=== PATIENT | female | born 1945 | race Hispanic/Latino ===

== ENCOUNTER 2017-06-23 11:12 | Emergency (ER) | payer MEDICARE, OTHER ==
[2017-06-23 11:12] VITALS: BMI 26.1
[2017-06-23 11:15] VITALS: BP 162/97; PULSE 86; RESP 20; TEMP 97.7; O2SAT 99
--- NOTE | 2017-06-23 11:52 | ED PDOC ---
HPI: Head Injury <Radha Viera - Last Filed: 06/23/17 16:00> Chief Complaint (Provider): head injury/fall History Per: Patient History/Exam Limitations: no limitations Injury Occurred (Timing): Hours Ago: Description Of Injury (Context): Fell from wheelchair Pain Scale Rating Of: 2 Front/Back Head: 1 - Pain, swellling Additional Complaint(s): 71 y/o F with PMHx of MS, Breast Ca, HTN presents to ED after sustaining a fall from her WC to the ground while at home. Patient fell backwards and had sudden pain <Mika Rodriguez - Last Filed: 06/23/17 16:27> Time Seen by Provider: 06/23/17 11:18 Chief Complaint (Nursing): Back Pain Past Medical History Vital Signs: Last Vital Signs Temp 97.7 F 06/23/17 11:14 Pulse 86 06/23/17 11:14 Resp 20 06/23/17 11:14 BP 162/97 H 06/23/17 11:14 Pulse Ox 99 06/23/17 12:02 <Radha Viera - Last Filed: 06/23/17 16:00> Vital Signs: Last Vital Signs Temp 97.7 F 06/23/17 11:14 Pulse 86 06/23/17 11:14 Resp 20 06/23/17 11:14 BP 162/97 H 06/23/17 11:14 Pulse Ox 99 06/23/17 11:14 - Medical History PMH: Anxiety, Asthma, Hypothyroidism, Malignancy (breast/cervical, in remission for both), Multiple Sclerosis - Surgical History Other surgeries: Lumpectomy - Family History Family History: States: Unknown Family Hx - Living Arrangements Living Arrangements: With Family <Mika Rodriguez - Last Filed: 06/23/17 16:27> - Home Medications Home Medications: Ambulatory Orders Medication Instructions Recorded Albuterol 0.083% [Albuterol 0.083% 1 unit INH PRN PRN 05/10/16 Inhal Renata (2.5 mg/3 ml) UD] Albuterol HFA [Ventolin HFA 90 2 inh INH PRN PRN 05/10/16 mcg/actuation (8 g)] Calcium/Magnesium [Calcium with 1 tab PO DAILY 05/10/16 Magnesium Tab] Fexofenadine/Pseudoephedrine 1 tab PO PRN PRN 05/10/16 [Jennifer-D 12 Hour Tablet] Furosemide [Lasix] 40 mg PO PRN PRN 05/10/16 Home Med 1 cap PO Q12 05/10/16 Home Med 1 unit PO Q12 05/10/16 Letrozole [Femara] 2.5 mg PO HS 05/10/16 Naltrexone [Revia] 4.5 mg PO HS 05/10/16 Patient Own Control 1 tab PO DAILY 05/10/16 Home Med 1 cap PO DAILY 05/11/16 Home Med 1 cap PO Q12 05/11/16 Liothyronine Sodium [Cytomel] 5 mcg PO DAILY 05/11/16 Thyroid,Pork [[place] Thyroid] 15 mg PO ASDIR 05/11/16 Alprazolam [Xanax] 0.5 mg PO HS #0 tablet 05/14/16 Aspirin 325 mg PO PRN PRN #0 tab 05/14/16 Cefuroxime Axetil [Ceftin] 500 mg PO DAILY #7 tablet 05/22/16 Cephalexin [Keflex] 500 mg PO BID #14 capsule 07/10/16 Ciprofloxacin [Cipro] 500 mg PO BID #14 tab 07/10/16 Cephalexin [Keflex] 500 mg PO BID #14 capsule 08/24/16 Clotrimazole 1% Cream [Lotrimin 1%] 1 appl TP DAILY #1 tube 08/24/16 traMADol [Ultram] 50 mg PO TID PRN #15 tab 06/23/17 - Allergies Allergies/Adverse Reactions: Allergies Allergy/AdvReac Type Severity Reaction Status Date / Time shellfish derived Allergy ANAPHYLAXIS Verified 11/12/16 00:09 Review of Systems ROS Statement: Except As Marked, All Systems Reviewed And Found Negative Neurological: Positive for: Weakness (LE. Chronic), Headache (pressure like. Occipital area), Dizziness (Resolved) <Mika Rodriguez - Last Filed: 06/23/17 16:27> Physical Exam - Reviewed Nursing Documentation Reviewed: Yes Vital Signs Reviewed: Yes - Physical Exam Appears: Positive for: No Acute Distress Head Exam: Negative for: ATRAUMATIC (4 cm in diameter hematoma in the occipital area. No laceration), NORMAL INSPECTION Skin: Positive for: Normal Color, Warm Eye Exam: Positive for: EOMI, PERRL. Negative for: Nystagmus Neck: Negative for: Painless ROM Cardiovascular/Chest: Positive for: Regular Rate, Rhythm. Negative for: Gallop Respiratory: Positive for: Normal Breath Sounds. Negative for: Crackles, Wheezing Gastrointestinal/Abdominal: Positive for: Soft. Negative for: Tenderness, Distended Extremity: Negative for: Pedal Edema, Calf Tenderness Neurologic/Psych: Positive for: Alert, gas charger II-XII, Oriented, Motor/Sensory Deficits (B/L LE strenght 01/16. ). Negative for: Aphasia <Mika Rodriguez - Last Filed: 06/23/17 16:27> - ECG O2 Sat by Pulse Oximetry: 99 <Mika Rodriguez - Last Filed: 06/23/17 16:27> Medical Decision Making Medical Decision Making: MRI brain no acute findings <Radha Viera - Last Filed: 06/23/17 16:00> Medical Decision Makin71 y/o F with PMhx of MS, HTN nad Breast Ca presents s/p fall and head trauma Head hematoma s/p fall no acute changes from baseline noticed on PE rule out intracraneal bleeding MRI of the brain w/o contrast stat(CT not working) <Mika Rodriguez - Last Filed: 06/23/17 16:27> Disposition - Patient ED Disposition Is Patient to be Admitted: No Doctor Will See Patient In The: Office Counseled Patient/Family Regarding: Studies Performed, Diagnosis, Need For Followup - Disposition Disposition: Routine/Home Disposition Time: 16:00 <Radha Viera - Last Filed: 06/23/17 16:00> <Mika Rodriguez - Last Filed: 06/23/17 16:27> - Clinical Impression Clinical Impression: Head injury, Choroid cyst, Meningioma - Disposition Referrals: Braden Vanessa MD [Family Provider] - Noman Fisher MD [Staff Provider] - Condition: GOOD Additional Instructions: Follow up with your PCP in 2-3 days. Prescriptions: traMADol [Ultram] 50 mg PO TID PRN #15 tab PRN Reason: Pain, Severe (8-10) Instructions: Head Injury (ED) Forms: [facility] (Romansh)
--- NOTE | 2017-06-23 14:18 | MRI ---
PROCEDURE: MRI BRAIN WITHOUT CONTRAST HISTORY: Fall/Head trauma COMPARISON: Prior head CT 04/30/2012. TECHNIQUE: Multiplanar, multisequence MR images of the brain were obtained without intravenous contrast enhancement. FINDINGS: HEMORRHAGE: No intracranial hemorrhage identified. Small right parietal scalp hematoma is encountered, right greater than left. DWI: No evidence of an acute or early subacute infarction. BRAIN PARENCHYMA: Small 1 cm probable meningioma is stable at the left frontal dura unchanged in size compared to prior CT noted above. No additional significant extra-axial finding. Diffuse cerebral atrophy however is identified and slightly increased in the interval with chronic microangiopathy appearing mild. A large left choroid plexus cyst measures 2.9 x 3.4 cm in the left lateral ventricle atrium not dramatically changed in size in the interval. Midline brain and appears unremarkable. No significant mass effect. VENTRICLES: Unremarkable. No hydrocephalus. CRANIUM: No displaced fracture identified. ORBITS: Grossly unremarkable. PARANASAL SINUSES/MASTOIDS: Limited bilateral mastoiditis identified. VASCULAR SYSTEM: Skull base flow voids intact. OTHER FINDINGS: None. IMPRESSION: 1. No definite intracranial hemorrhage or mass effect. No displaced fracture is grossly evident. 2. Small scalp hematoma seen the right renal left parietal scalp. 3. Mild increased age-related neuro degenerative changes. 4. Small left frontal meningioma suggested. Contrast MRI can confirm.
== END 2017-06-23 16:26 | disposition home or self-care (01) ==
LOC: H.ER 11:12
DX: S00.03XA Contusion of scalp, initial encounter (principal); W05.0XXA Fall from non-moving wheelchair, initial encounter; Y92.89 Other specified places as the place of occurrence of the external cause; D32.0 Benign neoplasm of cerebral meninges

== ENCOUNTER 2017-11-29 23:26 | Emergency (ER) | payer MEDICARE ==
[2017-11-29 23:26] VITALS: BMI 26.1
[2017-11-29 23:54] VITALS: BP 127/80; PULSE 86; RESP 18; TEMP 97.7; O2SAT 97
[2017-11-30 01:38] LABS: BASO # 0.1 K/uL (0.0-0.2); BASO % 0.8 % (0.0-2.0); EOS # 0.3 K/uL (0.0-0.7); LYMPH # 1.7 K/uL (1.0-4.3); MEAN CELL VOLUME 83.1 fl (81.0-99.0); MEAN CORPUSCULAR HEMOGLOBIN 27.1 pg (27.0-31.0); MEAN CORPUSCULAR HGB CONC 32.6 g/dL (33.0-37.0); MEAN PLATELET VOLUME 6.9 fl (7.2-11.7); MONO # 0.7 K/uL (0.0-0.8); NEUT # 5.4 K/uL (1.8-7.0); NEUT % 65.2 % (50.0-75.0); NRBC % 0.2 % (0.0-0.0); RBC 5.16 Mil/uL (3.80-5.20); RED CELL DISTRIBUTION WIDTH 14.9 % (11.5-14.5); WHITE BLOOD COUNT 8.2 K/uL (4.8-10.8)
[2017-11-30 01:48] LABS: ALB/GLOB RATIO 1.2 (1.0-2.1); ALBUMIN 4.3 g/dL (3.5-5.0); ALT/SGPT 36 U/L (9-52); AST/SGOT 25 U/L (14-36); BLOOD UREA NITROGEN 26 mg/dl (7-17); CALCIUM 9.4 mg/dL (8.4-10.2); GFR AFRICAN-AMERICAN 41; GFR NON-AFRICAN AMERICAN 34; LIPASE 200 U/L (23-300)
--- NOTE | 2017-11-30 02:25 | ED PDOC ---
HPI: General Adult Time Seen by Provider: 11/29/17 23:44 Chief Complaint (Nursing): Chest Pain Chief Complaint (Provider): Burning Sensation in Throat History Per: Patient, EMS History/Exam Limitations: no limitations Onset/Duration Of Symptoms: Days Current Symptoms Are (Timing): Gone Now Additional Complaint(s): Carlton is a 72 year old female who presents to the emergency department via EMS who reports earlier prior to arrival, patient was drinking water and developed burning sensation in throat, but resolved subsequently. Has no symptoms at present. Reports felt anxious at the time. Denies nausea, vomiting, chest pain, diarrhea or shortness of breath. PMD: Provider TBD Past Medical History Reviewed: Historical Data, Nursing Documentation, Vital Signs Vital Signs: Last Vital Signs Temp 97.7 F 11/29/17 23:41 Pulse 86 11/29/17 23:41 Resp 18 11/29/17 23:41 BP 127/80 11/29/17 23:41 Pulse Ox 97 11/30/17 02:32 - Medical History PMH: Anxiety, Asthma, Hypothyroidism, Malignancy (breast/cervical, in remission for both), Multiple Sclerosis Denies: Chronic Kidney Disease - Surgical History Other surgeries: Appendectomy, breast surgery - Family History Family History: States: Unknown Family Hx - Social History Current smoker - smoking cessation education provided: No Alcohol: None Drugs: Denies - Home Medications Home Medications: Ambulatory Orders Medication Instructions Recorded Albuterol 0.083% [Albuterol 0.083% 1 unit INH PRN PRN 05/10/16 Inhal Renata (2.5 mg/3 ml) UD] Albuterol HFA [Ventolin HFA 90 2 inh INH PRN PRN 05/10/16 mcg/actuation (8 g)] Calcium/Magnesium [Calcium with 1 tab PO DAILY 05/10/16 Magnesium Tab] Fexofenadine/Pseudoephedrine 1 tab PO PRN PRN 05/10/16 [Jennifer-D 12 Hour Tablet] Furosemide [Lasix] 40 mg PO PRN PRN 05/10/16 Home Med 1 cap PO Q12 05/10/16 Home Med 1 unit PO Q12 05/10/16 Letrozole [Femara] 2.5 mg PO HS 05/10/16 Naltrexone [Revia] 4.5 mg PO HS 05/10/16 Patient Own Control 1 tab PO DAILY 05/10/16 Home Med 1 cap PO DAILY 05/11/16 Home Med 1 cap PO Q12 05/11/16 Liothyronine Sodium [Cytomel] 5 mcg PO DAILY 05/11/16 Thyroid,Pork [[place] Thyroid] 15 mg PO ASDIR 05/11/16 Alprazolam [Xanax] 0.5 mg PO HS #0 tablet 05/14/16 Aspirin 325 mg PO PRN PRN #0 tab 05/14/16 Cefuroxime Axetil [Ceftin] 500 mg PO DAILY #7 tablet 05/22/16 Cephalexin [Keflex] 500 mg PO BID #14 capsule 07/10/16 Ciprofloxacin [Cipro] 500 mg PO BID #14 tab 07/10/16 Cephalexin [Keflex] 500 mg PO BID #14 capsule 08/24/16 Clotrimazole 1% Cream [Lotrimin 1%] 1 appl TP DAILY #1 tube 08/24/16 traMADol [Ultram] 50 mg PO TID PRN #15 tab 06/23/17 Esomeprazole Magnesium [Nexium] 20 mg PO QAM #30 ecc 11/30/17 - Allergies Allergies/Adverse Reactions: Allergies Allergy/AdvReac Type Severity Reaction Status Date / Time ciprofibrate Allergy unknown Verified 11/29/17 23:39 ofloxacin [From Floxin] Allergy unknown Verified 11/29/17 23:39 shellfish derived Allergy ANAPHYLAXIS Verified 11/12/16 00:09 Review of Systems ROS Statement: Except As Marked, All Systems Reviewed And Found Negative ENT: Positive for: Other (Burning sensation in Throat) Cardiovascular: Negative for: Chest Pain Respiratory: Negative for: Shortness of Breath Gastrointestinal: Negative for: Nausea, Vomiting, Diarrhea Physical Exam - Reviewed Nursing Documentation Reviewed: Yes Vital Signs Reviewed: Yes - Physical Exam Appears: Positive for: Non-toxic Head Exam: Positive for: ATRAUMATIC, NORMAL INSPECTION, NORMOCEPHALIC Skin: Positive for: Normal Color, Warm, Dry Eye Exam: Positive for: Normal appearance ENT: Positive for: Normal ENT Inspection Neck: Positive for: Normal Cardiovascular/Chest: Positive for: Regular Rate, Rhythm Respiratory: Positive for: Normal Breath Sounds. Negative for: Respiratory Distress Gastrointestinal/Abdominal: Positive for: Normal Exam Back: Positive for: Normal Inspection Extremity: Positive for: Normal ROM. Negative for: Deformity Neurologic/Psych: Positive for: Alert, Oriented - Laboratory Results Result Diagrams: 11/30/17 01:27 11/30/17 01:27 - ECG O2 Sat by Pulse Oximetry: 97 (RA) Pulse Ox Interpretation: Normal Medical Decision Making Medical Decision Making: Time: 23:57 Impression: 72 year old female with episodes of clinical gastroenteritis/GERD Plan: - EKG - CMP - Lipase - Troponin I - cbc Time: 02:21 Labs reviewed. No clinical abnormalities. Asymptomatic. Stable for discharge. Scribe Attestation: Documented by Abbe Powers, acting as a scribe for Carlitos Foley MD Provider Scribe Attestation: All medical record entries made by the Scribe were at my direction and personally dictated by me. I have reviewed the chart and agree that the record accurately reflects my personal performance of the history, physical exam, medical decision making, and the department course for this patient. I have also personally directed, reviewed, and agree with the discharge instructions and disposition. Disposition - Clinical Impression Clinical Impression: Gastritis, GERD (gastroesophageal reflux disease) - Patient ED Disposition Is Patient to be Admitted: No - Disposition Disposition: Routine/Home Disposition Time: 02:21 Condition: STABLE Prescriptions: Esomeprazole Magnesium [Nexium] 20 mg PO QAM #30 ecc Instructions: Gastroesophageal Reflux Disease (ED) Forms: [facility] ([place])
--- NOTE | 2017-11-30 16:29 | CARD ---
APPROVED REPORT EKG Measurement Heart [id number] <Conclusion> Normal sinus rhythm Normal ECG
== END 2017-11-30 02:40 | disposition home or self-care (01) ==
LOC: H.ER 23:26
DX: K21.9 Gastro-esophageal reflux disease without esophagitis (principal); K29.70 Gastritis, unspecified, without bleeding; G35 Multiple sclerosis; J45.909 Unspecified asthma, uncomplicated; Z85.41 Personal history of malignant neoplasm of cervix uteri; Z85.3 Personal history of malignant neoplasm of breast

== ENCOUNTER 2018-02-11 11:25 | Emergency (ER) | payer MEDICARE, OTHER ==
[2018-02-11 11:25] VITALS: BMI 26.1
--- NOTE | 2018-02-11 12:08 | ED PDOC ---
HPI: Abdomen Time Seen by Provider: 02/11/18 11:35 Chief Complaint (Nursing): Abdominal Pain Chief Complaint (Provider): abdominal pain, loss appetite History Per: Patient, Family () History/Exam Limitations: no limitations Onset/Duration Of Symptoms: Days (weeks+) Outside of [place] travel?: No Current Symptoms Are (Timing): Intermittent Episodes Context: Food Severity: Moderate Location Of Pain/Discomfort: Epigastric Quality Of Discomfort: Cramping, Burning Associated Symptoms: Nausea, Loss Of Appetite. denies: Back Pain, Chest Pain Exacerbating Factors: Food Alleviating Factors: None Last Bowel Movement: Today Additional Complaint(s): 72yo female hx MS mostly wheelchair bound, presents c/o ongoing upper abdominal discomfort associated with nausea and loss of appetite for several weeks. Denies melena, unexplained weight loss, fever, hematemesis or syncope. History breast cancer w radiation also. Past Medical History Reviewed: Historical Data, Nursing Documentation, Vital Signs Vital Signs: Last Vital Signs Temp 98.1 F 02/11/18 16:34 Pulse 75 02/11/18 16:34 Resp 16 02/11/18 16:34 BP 135/80 02/11/18 16:34 Pulse Ox 99 02/11/18 16:34 - Medical History PMH: Anxiety, Asthma, Hypothyroidism, Malignancy (breast/cervical, in remission for both), Multiple Sclerosis Denies: Chronic Kidney Disease - Surgical History Other surgeries: breast cancer , knee replacement - Family History Family History: States: Unknown Family Hx - Living Arrangements Living Arrangements: With Family - Home Medications Home Medications: Ambulatory Orders Medication Instructions Recorded Albuterol 0.083% [Albuterol 0.083% 1 unit INH PRN PRN 05/10/16 Inhal Renata (2.5 mg/3 ml) UD] Albuterol HFA [Ventolin HFA 90 2 inh INH PRN PRN 05/10/16 mcg/actuation (8 g)] Calcium/Magnesium [Calcium with 1 tab PO DAILY 05/10/16 Magnesium Tab] Fexofenadine/Pseudoephedrine 1 tab PO PRN PRN 05/10/16 [Jennifer-D 12 Hour Tablet] Furosemide [Lasix] 40 mg PO PRN PRN 05/10/16 Home Med 1 cap PO Q12 05/10/16 Home Med 1 unit PO Q12 05/10/16 Letrozole [Femara] 2.5 mg PO HS 05/10/16 Naltrexone [Revia] 4.5 mg PO HS 05/10/16 Patient Own Control 1 tab PO DAILY 05/10/16 Home Med 1 cap PO DAILY 05/11/16 Home Med 1 cap PO Q12 05/11/16 Liothyronine Sodium [Cytomel] 5 mcg PO DAILY 05/11/16 Thyroid,Pork [[place] Thyroid] 15 mg PO ASDIR 05/11/16 Alprazolam [Xanax] 0.5 mg PO HS #0 tablet 05/14/16 Aspirin 325 mg PO PRN PRN #0 tab 05/14/16 Cefuroxime Axetil [Ceftin] 500 mg PO DAILY #7 tablet 05/22/16 Cephalexin [Keflex] 500 mg PO BID #14 capsule 07/10/16 Ciprofloxacin [Cipro] 500 mg PO BID #14 tab 07/10/16 Cephalexin [Keflex] 500 mg PO BID #14 capsule 08/24/16 Clotrimazole 1% Cream [Lotrimin 1%] 1 appl TP DAILY #1 tube 08/24/16 traMADol [Ultram] 50 mg PO TID PRN #15 tab 06/23/17 Esomeprazole Magnesium [Nexium] 20 mg PO QAM #30 ecc 11/30/17 Sulfamethoxazole/Trimethoprim 1 tab PO BID #20 tab 02/11/18 [Bactrim DS 800 mg-160 mg] - Allergies Allergies/Adverse Reactions: Allergies Allergy/AdvReac Type Severity Reaction Status Date / Time ciprofibrate Allergy unknown Verified 11/29/17 23:39 ofloxacin [From Floxin] Allergy unknown Verified 11/29/17 23:39 shellfish derived Allergy ANAPHYLAXIS Verified 11/12/16 00:09 Review of Systems Constitutional: Negative for: Fever, Chills ENT: Negative for: Throat Pain Cardiovascular: Negative for: Chest Pain Gastrointestinal: Positive for: Nausea, Abdominal Pain. Negative for: Melena, Hematochezia Musculoskeletal: Negative for: Neck Pain, Back Pain Skin: Negative for: Rash, Lesions Neurological: Positive for: Numbness (b/l LE), Other (incontinence chronic). Negative for: Weakness Physical Exam - Reviewed Nursing Documentation Reviewed: Yes Vital Signs Reviewed: Yes - Physical Exam Appears: Positive for: Well, Non-toxic, No Acute Distress Head Exam: Positive for: ATRAUMATIC, NORMAL INSPECTION, NORMOCEPHALIC Skin: Positive for: Normal Color, Warm, DRY Eye Exam: Positive for: EOMI, Normal appearance, PERRL ENT: Positive for: Normal ENT Inspection Neck: Positive for: Normal, Painless ROM Cardiovascular/Chest: Positive for: Regular Rate, Rhythm Respiratory: Positive for: CNT, Normal Breath Sounds Gastrointestinal/Abdominal: Positive for: Bowel Sounds, Soft, Tenderness (mild epigastric tenderness). Negative for: Guarding, Rebound Back: Positive for: Normal Inspection Extremity: Positive for: Normal ROM Neurologic/Psych: Positive for: Alert, Oriented - Laboratory Results Result Diagrams: 02/11/18 12:05 02/11/18 12:05 - ECG O2 Sat by Pulse Oximetry: 98 Pulse Ox Interpretation: Normal Medical Decision Making Medical Decision Making: workup for upper abd pain in setting of chronic MS and prior breast malignancy Patient refused IV placement Refused CT imaging as concern for radiation and prior malignancy labs reveal mild dehydration but patient refused IV placement for IVF LFTs normal lipase normal Accession No. : [id number] Patient Name / ID : JOSLYN POLLARD / [id number] Exam Date : 02/11/2018 13:59:01 ( Approved ) Study Comment : Sex / Age : F / 72Y Creator : Abdi Cano MD Dictator : Abdi Cano MD Forensic Psychiatrist : Small Boat Engineer : Abdi Cano MD Approver2 : Report Date : 02/11/2018 14:35:57 My Comment : HISTORY: upper abd pain, loss appetite COMPARISON: None. TECHNIQUE: Sonographic evaluation of the abdomen. FINDINGS: LIVER: Measures 16.7 cm. Normal echogenicity of the liver parenchyma. No mass. No intrahepatic bile duct dilatation. GALLBLADDER: Unremarkable. No gallstones. COMMON BILE DUCT: Measures 4 mm. No stones. No dilatation. PANCREAS: Unremarkable as visualized. No mass. No ductal dilatation. RIGHT KIDNEY: Measures 9.9 x 4.7 x 4.9cm. Normal echogenicity. No calculus, mass, or hydronephrosis. LEFT KIDNEY: Measures 7.5 x 3.8 x 3.2cm. Normal echogenicity. No calculus, mass, or hydronephrosis. SPLEEN: Normal in size and contour. No mass. AORTA: No aneurysmal dilatation. IVC: Unremarkable. OTHER FINDINGS: None. IMPRESSION: Left renal atrophy. Otherwise, unremarkable abdominal ultrasound. --------- patient remains w symptoms refused pepcid Agreeable to Abd CT avoid IV contrast given kidney function Disposition - Clinical Impression Clinical Impression: Abdominal pain, UTI (urinary tract infection) - Patient ED Disposition Is Patient to be Admitted: Transfer of Care - Disposition Referrals: Braden Vanessa MD [Staff Provider] - Disposition: Transfer of Care Disposition Time: 15:01 Condition: FAIR Prescriptions: Sulfamethoxazole/Trimethoprim [Bactrim DS 800 mg-160 mg] 1 tab PO BID #20 tab Instructions: Urinary Tract Infection, Adult (DC) Forms: [facility] ([place]) Patient Signed Over To: Navneet Jackson Handoff Comments: pending CT/ d/w PMD/dispo
[2018-02-11 12:17] LABS: BASO # 0.1 K/uL (0.0-0.2); BASO % 0.7 % (0.0-2.0); EOS # 0.4 K/uL (0.0-0.7); EOS % 4.9 % (0.0-4.0); HEMOGLOBIN 15.2 g/dL (12.0-16.0); LYMPH # 1.6 K/uL (1.0-4.3); LYMPH % 19.1 % (20.0-40.0); MEAN CELL VOLUME 81.9 fl (81.0-99.0); MEAN CORPUSCULAR HEMOGLOBIN 27.1 pg (27.0-31.0); MEAN CORPUSCULAR HGB CONC 33.1 g/dL (33.0-37.0); MONO # 0.6 K/uL (0.0-0.8); MONO % 7.7 % (0.0-10.0); NEUT # 5.5 K/uL (1.8-7.0); NEUT % 67.6 % (50.0-75.0); NRBC % 0.1 % (0.0-0.0); RBC 5.61 Mil/uL (3.80-5.20); RED CELL DISTRIBUTION WIDTH 15.2 % (11.5-14.5); WHITE BLOOD COUNT 8.1 K/uL (4.8-10.8)
[2018-02-11 12:35] LABS: ALB/GLOB RATIO 1.2 (1.0-2.1); ALBUMIN 4.3 g/dL (3.5-5.0); CALCIUM 9.6 mg/dL (8.4-10.2)
--- NOTE | 2018-02-11 14:37 | US ---
HISTORY: upper abd pain, loss appetite COMPARISON: None. TECHNIQUE: Sonographic evaluation of the abdomen. FINDINGS: LIVER: Measures 16.7 cm. Normal echogenicity of the liver parenchyma. No mass. No intrahepatic bile duct dilatation. GALLBLADDER: Unremarkable. No gallstones. COMMON BILE DUCT: Measures 4 mm. No stones. No dilatation. PANCREAS: Unremarkable as visualized. No mass. No ductal dilatation. RIGHT KIDNEY: Measures 9.9 x 4.7 x 4.9cm. Normal echogenicity. No calculus, mass, or hydronephrosis. LEFT KIDNEY: Measures 7.5 x 3.8 x 3.2cm. Normal echogenicity. No calculus, mass, or hydronephrosis. SPLEEN: Normal in size and contour. No mass. AORTA: No aneurysmal dilatation. IVC: Unremarkable. OTHER FINDINGS: None. IMPRESSION: Left renal atrophy. Otherwise, unremarkable abdominal ultrasound.
[2018-02-11] MEDS ORDERED: Iohexol 240 (50 ml) PO ONE (15:00)
--- NOTE | 2018-02-11 15:47 | ED PDOC ---
- Laboratory Results Result Diagrams: 02/11/18 12:05 02/11/18 12:05 - ECG O2 Sat by Pulse Oximetry: 98 (RA) Pulse Ox Interpretation: Normal Medical Decision Making Medical Decision Making: Patient signed out to provider at [address] Gastelum pending CT. Documented by Shira Feliciano acting as a scribe for Navneet Jackson MD. All medical record entries made by the Scribe were at my direction and personally dictated by me. I have reviewed the chart and agree that the record accurately reflects my personal performance of the history, physical exam, medical decision making, and the department course for this patient. I have also personally directed, reviewed, and agree with the discharge instructions and disposition. Disposition - Clinical Impression Clinical Impression: Abdominal pain, UTI (urinary tract infection) - POA Present On Arrival: None - Disposition Referrals: Braden Vanessa MD [Staff Provider] - Disposition: Routine/Home Disposition Time: 16:22 Condition: FAIR Prescriptions: Sulfamethoxazole/Trimethoprim [Bactrim DS 800 mg-160 mg] 1 tab PO BID #20 tab Instructions: Urinary Tract Infection, Adult (DC) Forms: [facility] (Ugandan)
[2018-02-11 15:57] LABS: SQUAMOUS EPITHIAL < 1 /hpf (0-5); URINE AMORPHOUS SEDIMENT RARE /ul (<OCC); URINE BACTERIA MOD (<OCC); URINE BILIRUBIN NEGATIVE (NEGATIVE); URINE BLOOD NEGATIVE (NEGATIVE); URINE CLARITY CLOUDY (Clear); URINE COLOR YELLOW (YELLOW); URINE GLUCOSE (UA) NEG (Normal); URINE LEUKOCYTE ESTERASE LARGE Leu/uL (Negative); URINE PROTEIN NEGATIVE (NEGATIVE); URINE UROBILINOGEN 0.2-1.0 mg/dL (0.2-1.0)
--- NOTE | 2018-02-11 16:02 | CT ---
PROCEDURE: CT Abdomen and Pelvis without intravenous contrast HISTORY: upper abd pain anorexia hx breast malignancy COMPARISON: Correlation is made to CT scan of the pelvis dated 01/05/2017. TECHNIQUE: Contiguous images were obtained from the domes of the diaphragms to the upper thighs without the administration of intravenous contrast. Oral contrast was not administered. Radiation dose: Total exam DLP = 838.5 mGy-cm. This CT exam was performed using one or more of the following dose reduction techniques: Automated exposure control, adjustment of the mA and/or kV according to patient size, and/or use of iterative reconstruction technique. FINDINGS: LOWER THORAX: Unremarkable. LIVER: Unremarkable. No gross lesion or ductal dilatation. GALLBLADDER AND BILE DUCTS: Unremarkable. PANCREAS: Fatty atrophy with punctate pancreatic head calcifications. No gross lesion or ductal dilatation. SPLEEN: Unremarkable. ADRENALS: Unremarkable. No mass. KIDNEYS AND URETERS: Atrophic left kidney. Nonobstructive 1.3 cm left lower pole calculus. No hydronephrosis. No solid mass. VASCULATURE: Calcific atherosclerosis. No aortic aneurysm. BOWEL: Posterior-inferior gastric diverticulum. Diverticulosis without diverticulitis. No obstruction. No gross mural thickening. APPENDIX: Unremarkable. Normal appendix. PERITONEUM: Unremarkable. No free fluid. No free air. LYMPH NODES: Unremarkable. No enlarged lymph nodes. BLADDER: Unremarkable. REPRODUCTIVE: Unremarkable. BONES: Diffuse degenerative changes. Stable L5-S1 grade 2 anterolisthesis. No acute fracture. OTHER FINDINGS: None. IMPRESSION: No acute abdominal pelvic pathology Nonobstructive left lower pole nephrolithiasis. Chronic pancreatitis. Gastric diverticulum. Additional chronic findings as above.
[2018-02-11 16:34] VITALS: BP 135/80; PULSE 75; RESP 16; TEMP 98.1
[2018-02-12 12:43] VITALS: O2SAT 98
== END 2018-02-11 16:35 | disposition home or self-care (01) ==
LOC: H.ER 11:25
DX: R10.9 Unspecified abdominal pain (principal); N39.0 Urinary tract infection, site not specified; Z85.41 Personal history of malignant neoplasm of cervix uteri; Z85.3 Personal history of malignant neoplasm of breast; J45.909 Unspecified asthma, uncomplicated; G35 Multiple sclerosis

== ENCOUNTER 2018-03-05 21:32 | Inpatient (IN) | payer MEDICARE ==
[2018-03-05 21:32] VITALS: BMI 26.1
[2018-03-05] MEDS ORDERED: Sodium Chloride 0.9% 1,000 ML IV STA (22:05)
--- NOTE | 2018-03-05 23:02 | ED PDOC ---
HPI: Abdomen Time Seen by Provider: 03/05/18 21:52 Chief Complaint (Nursing): Fever Chief Complaint (Provider): abdominal discomfort History Per: Patient, Family Onset/Duration Of Symptoms: Days (2) Location Of Pain/Discomfort: Diffuse Quality Of Discomfort: "Pain" Associated Symptoms: Fever, Chills, Nausea, Vomiting, Diarrhea, Urinary Symptoms Additional Complaint(s): H/o multiple sclerosis requiring self catheterization. Recent ER visit 3 weeks ago for abdominal pain and diagnosed with UTI. Initial abx changed from bactrim to macrobid. However macrobid caused diarrhea so she did not finish antibiotic course. Now present with stomach discomfort and fever for 2 days with episodes of vomiting. Reports excessive thirst H/o UTI and sepsis [address] Vanessa Past Medical History Reviewed: Historical Data, Nursing Documentation, Vital Signs Vital Signs: Last Vital Signs Temp 99.5 F 03/06/18 08:01 Pulse 93 H 03/06/18 08:01 Resp 20 03/06/18 08:01 BP 147/77 03/06/18 08:01 Pulse Ox 92 L 03/06/18 08:01 - Medical History PMH: Anxiety, Asthma, Hypothyroidism, Malignancy (breast/cervical, in remission for both), Multiple Sclerosis Denies: Chronic Kidney Disease - Surgical History Other surgeries: Knee surgery - Family History Family History: States: Unknown Family Hx - Social History Current smoker - smoking cessation education provided: No Alcohol: None Drugs: Denies - Home Medications Home Medications: Ambulatory Orders Medication Instructions Recorded Albuterol 0.083% [Albuterol 0.083% 1 unit INH PRN PRN 05/10/16 Inhal Renata (2.5 mg/3 ml) UD] Albuterol HFA [Ventolin HFA 90 2 inh INH PRN PRN 05/10/16 mcg/actuation (8 g)] Fexofenadine/Pseudoephedrine 1 tab PO PRN PRN 05/10/16 [Jennifer-D 12 Hour Tablet] Furosemide [Lasix] 40 mg PO PRN PRN 05/10/16 Naltrexone [Revia] 4.5 mg PO HS 05/10/16 Liothyronine Sodium [Cytomel] 5 mcg PO DAILY 05/11/16 Thyroid,Pork [Agar Thyroid] 30 mg PO ASDIR 05/11/16 Aspirin 325 mg PO PRN PRN #0 tab 05/14/16 Alprazolam [Xanax] 0.5 mg PO TID PRN 03/06/18 Letrozole [Femara] 2.5 mg PO DAILY 03/06/18 - Allergies Allergies/Adverse Reactions: Allergies Allergy/AdvReac Type Severity Reaction Status Date / Time ciprofibrate Allergy unknown Verified 11/29/17 23:39 ofloxacin [From Floxin] Allergy unknown Verified 11/29/17 23:39 shellfish derived Allergy ANAPHYLAXIS Verified 11/12/16 00:09 Review of Systems ROS Statement: Except As Marked, All Systems Reviewed And Found Negative (and as per HPI) Constitutional: Positive for: Fever, Chills, Weakness, Malaise Cardiovascular: Positive for: Light Headedness. Negative for: Chest Pain Gastrointestinal: Positive for: Nausea, Vomiting, Abdominal Pain, Diarrhea. Negative for: Melena Neurological: Positive for: Dizziness Physical Exam - Reviewed Nursing Documentation Reviewed: Yes Vital Signs Reviewed: Yes - Physical Exam Appears: Positive for: Non-toxic, In Acute Distress Head Exam: Positive for: ATRAUMATIC, NORMOCEPHALIC Skin: Positive for: Warm, Dry Eye Exam: Positive for: EOMI, PERRL ENT: Positive for: Other (dry mucus membranes) Neck: Positive for: Painless ROM, Supple Cardiovascular/Chest: Positive for: Tachycardia. Negative for: Murmur Respiratory: Positive for: Normal Breath Sounds. Negative for: Respiratory Distress Gastrointestinal/Abdominal: Positive for: Soft, Tenderness (diffuse). Negative for: Mass, Distended, Guarding, Rebound Back: Positive for: Normal Inspection. Negative for: Decreased ROM Extremity: Positive for: Normal ROM. Negative for: Deformity Lymphatic: Negative for: Adenopathy Neurologic/Psych: Positive for: Alert. Negative for: Motor/Sensory Deficits - Laboratory Results Result Diagrams: 03/06/18 07:00 03/06/18 07:00 - ECG O2 Sat by Pulse Oximetry: 99 Pulse Ox Interpretation: Normal - Progress ED Course And Treament: Labs demonstrate acutely worsening renal function and persistent or recurrent UTI. Resistant bacteria likely since pt had only partial treatment. Zosyn started for better coverage. COTLEN Allison Hospitalist admitting for PMD. COLTEN pt and family findings and plan of care. Disposition - Clinical Impression Clinical Impression: Urinary tract infection, DANII (acute kidney injury) Counseled Patient/Family Regarding: Studies Performed, Diagnosis - Disposition Disposition Time: 00:15 Condition: FAIR - Pt Status Changed To: Hospital Disposition Of: Observation - POA Present On Arrival: Cath Associated UTI
[2018-03-05 23:25] LABS: VENOUS BLOOD GAS BASE EXCESS 4.6 mmol/L (0.0-2.0); VENOUS BLOOD GAS PCO2 38 mmHg (40-60); VENOUS BLOOD GAS PO2 53 mm/Hg (30-55); VENOUS BLOOD PH 7.48 (7.32-7.43)
[2018-03-05 23:25] LABS: BASO % 0.2 % (0.0-2.0); EOS % 0.2 % (0.0-4.0); HEMOGLOBIN 14.3 g/dL (12.0-16.0); LYMPH # 0.6 K/uL (1.0-4.3); LYMPH % 6.1 % (20.0-40.0); MEAN CORPUSCULAR HEMOGLOBIN 27.2 pg (27.0-31.0); MEAN CORPUSCULAR HGB CONC 33.2 g/dL (33.0-37.0); MEAN PLATELET VOLUME 7.2 fl (7.2-11.7); MONO # 0.9 K/uL (0.0-0.8); MONO % 8.5 % (0.0-10.0); PLATELET COUNT 286 K/uL (130-400); RBC 5.25 Mil/uL (3.80-5.20); RED CELL DISTRIBUTION WIDTH 15.8 % (11.5-14.5); WHITE BLOOD COUNT 10.6 K/uL (4.8-10.8)
[2018-03-05 23:38] LABS: INR 1.2 (0.9-1.2); PARTIAL THROMBOPLASTIN TIME 31.2 Seconds (25.6-37.1); PROTHROMBIN TIME 12.9 Seconds (9.8-13.1)
[2018-03-05 23:45] LABS: ALB/GLOB RATIO 1.1 (1.0-2.1); ALBUMIN 4.1 g/dL (3.5-5.0); ALT/SGPT 34 U/L (9-52); AMYLASE 74 U/L (30-110); AST/SGOT 26 U/L (14-36); BLOOD UREA NITROGEN 22 mg/dl (7-17); GFR AFRICAN-AMERICAN 29; GFR NON-AFRICAN AMERICAN 24; LIPASE 68 U/L (23-300)
[2018-03-06] MEDS ORDERED: Piperacillin/Tazobact 3.375 GM in Sodium Chloride 0.9% 100 ML IV STA (00:09)
--- NOTE | 2018-03-06 00:15 | CP.PCM.HP ---
History of Present Illness - History of Present Illness History of Present Illness: CC: Fever, dysuria; failed outpatient abx HPI: THis is a 66 y/o female with MHx significant for asthma, MS, and prior breast Ca who presents to the ED with fever, dysuria. Of note patient has to self cath chronically. Patient had been seen in ER here and was placed on Abx several weeks ago (bactrim which was switched to macrobid) but because of side GI side effects, she did not finish the course. She comes in again with fever and dysuria. Denies n/v/d. Nothing has made symptoms better or worse. Patient has had resistant bacteria in urine in past. Has seen Dr. Byrnes. ROS: 14 systems reviewed, negative other than HPI MHx: Asthma, MS, Breast Ca SHx: Knee surgery in past Allergies: Codeine, fish, pentazocine, ofloxacin Medications: As per med rec Family Hx: Reviewed, not contributory Social Hx: Lives with family, denies EtOH or tobacco Surrogate Decision Maker: , info on chart Present on Admission - Present on Admission Any Indicators Present on Admission: No Past Patient History - Infectious Disease Hx of Infectious Diseases: None - Past Medical History & Family History Past Medical History?: Yes - Past Social History Alcohol: None Drugs: Denies - CARDIAC Hx Cardiac Disorders: No - PULMONARY Hx Asthma: Yes - NEUROLOGICAL Hx Multiple Sclerosis: Yes - HEENT Hx HEENT Problems: Yes Hx Glaucoma: Yes - RENAL Hx Chronic Kidney Disease: No - ENDOCRINE/METABOLIC Hx Hypothyroidism: Yes - HEMATOLOGICAL/ONCOLOGICAL Hx Blood Disorders: Yes Hx Blood Transfusions: Yes Hx Cancer: Yes (r breast, cervical, uterine) Hx Chemotherapy: Yes Other/Comment: Sepsis - INTEGUMENTARY Hx Dermatological Problems: No - MUSCULOSKELETAL/RHEUMATOLOGICAL Hx Musculoskeletal Disorders: Yes Hx Unsteady Gait: Yes - GASTROINTESTINAL Hx Gastrointestinal Disorders: No - GENITOURINARY/GYNECOLOGICAL Hx Genitourinary Disorders: Yes Hx Cervical Cancer: Yes Hx Incontinence: Yes Hx Uterine Cancer: Yes Hx Urinary Tract Infection: Yes (Multiple UTIs) Other/Comment: Hx urinary retention - PSYCHIATRIC Hx Anxiety: Yes - SURGICAL HISTORY Hx Surgeries: Yes Hx Cataract Extraction: Yes Hx Joint Replacement: Yes (Right knee) Other/Comment: Hx Right breast Lumpectomy - ANESTHESIA Hx Anesthesia: Yes Meds Allergies/Adverse Reactions: Allergies Allergy/AdvReac Type Severity Reaction Status Date / Time ciprofibrate Allergy unknown Verified 11/29/17 23:39 ofloxacin [From Floxin] Allergy unknown Verified 11/29/17 23:39 shellfish derived Allergy ANAPHYLAXIS Verified 11/12/16 00:09 Results - Vital Signs Recent Vital Signs: Last Vital Signs Temp 99.9 F H 03/05/18 21:43 Pulse 103 H 03/05/18 21:43 Resp 22 03/05/18 21:43 BP 130/82 03/05/18 21:43 Pulse Ox 99 03/05/18 23:11 - Labs Result Diagrams: 03/05/18 23:15 03/05/18 23:15 Labs: Laboratory Results - last 24 hr 03/05/18 03/05/18 03/05/18 23:15 23:15 23:15 WBC 10.6 RBC 5.25 H Hgb 14.3 Hct 43.0 MCV 82.0 MCH 27.2 MCHC 33.2 RDW 15.8 H Plt Count 286 MPV 7.2 Neut % (Auto) 85.0 H Lymph % (Auto) 6.1 L [place] % (Auto) 8.5 Eos % (Auto) 0.2 Baso % (Auto) 0.2 Neut # (Auto) 9.0 H Lymph # (Auto) 0.6 L [place] # (Auto) 0.9 H Eos # (Auto) 0.0 Baso # (Auto) 0.0 PT 12.9 INR 1.2 APTT 31.2 pO2 VBG pH VBG pCO2 VBG HCO3 VBG Total CO2 VBG O2 Sat (Calc) VBG Base Excess VBG Potassium Glucose Lactate FiO2 Sodium 138 Potassium 4.1 Chloride 96 L Carbon Dioxide 23 Anion Gap 23 H BUN 22 H Creatinine 2.0 H Est GFR ( Amer) 29 Est GFR (Non-Af Amer) 24 Random Glucose 127 H Calcium 9.0 Phosphorus 3.1 Magnesium 2.4 H Total Bilirubin 1.0 AST 26 ALT 34 Alkaline Phosphatase 88 Lactate Dehydrogenase 383 Total Protein 7.7 Albumin 4.1 Globulin 3.6 Albumin/Globulin Ratio 1.1 Amylase 74 Lipase 68 Venous Blood Potassium Alcohol, Quantitative < 10 03/05/18 23:22 WBC RBC Hgb Hct MCV MCH MCHC RDW Plt Count MPV Neut % (Auto) Lymph % (Auto) [place] % (Auto) Eos % (Auto) Baso % (Auto) Neut # (Auto) Lymph # (Auto) [place] # (Auto) Eos # (Auto) Baso # (Auto) PT INR APTT pO2 53 VBG pH 7.48 H VBG pCO2 38 L VBG HCO3 28.3 VBG Total CO2 29.5 H VBG O2 Sat (Calc) 91.8 H VBG Base Excess 4.6 H VBG Potassium 4.1 Glucose 134 H Lactate 0.8 FiO2 21.0 Sodium 132.0 Potassium Chloride 97.0 L Carbon Dioxide Anion Gap BUN Creatinine Est GFR ( Amer) Est GFR (Non-Af Amer) Random Glucose Calcium Phosphorus Magnesium Total Bilirubin AST ALT Alkaline Phosphatase Lactate Dehydrogenase Total Protein Albumin Globulin Albumin/Globulin Ratio Amylase Lipase Venous Blood Potassium 4.1 Alcohol, Quantitative Assessment & Plan (1) Sepsis secondary to UTI Assessment and Plan: 72 y/o female presenting with fever and dysuria, failed course of outpatient abx. 1) Sepsis with urinary source; admitted several years ago and was placed on meropenem based on sensitivities; this time, recent UA shows resistance again to multiple drugs. -Continue Zosyn IV, renally dosed for now; consider narrowing if possible -Will obtain ID consult, given resistant bacteria this time and previously -- seen by Fitz in the past. -Tylenol for fever -IVF 2) ARF -Will rehydrate and repeat BMP in AM; may be due to volume depletion -Dose medications renally 3) DVT PPx -- SQ heparin Status: Acute (2) Urinary tract infection Status: Acute (3) Acute on chronic renal failure Status: Acute (4) DVT prophylaxis Status: Acute
[2018-03-06 00:20] LABS: SQUAMOUS EPITHIAL < 1 /hpf (0-5); URINE BACTERIA OCC (<OCC); URINE BILIRUBIN NEGATIVE (NEGATIVE); URINE BLOOD MODERATE (NEGATIVE); URINE CLARITY CLOUDY (Clear); URINE COLOR YELLOW (YELLOW); URINE GLUCOSE (UA) NEG (Normal); URINE LEUKOCYTE ESTERASE LARGE Leu/uL (Negative); URINE PROTEIN NEGATIVE (NEGATIVE); URINE UROBILINOGEN 0.2-1.0 mg/dL (0.2-1.0)
[2018-03-06] MEDS ORDERED: Albuterol-Ipratrop 3 mg / 0.5 (3 ml) UD INH PRN (00:23)
[2018-03-06] MEDS ORDERED: Lactated Ringer's 1,000 ML IV SCH (00:30)
[2018-03-06 00:43] LABS: BARBITURATES, UR NEGATIVE (NEGATIVE); BENZODIAZEPINES, UR POSITIVE (NEGATIVE); OPIATES, UR NEGATIVE (NEGATIVE); PHENCYCLIDINE, UR NEGATIVE (NEGATIVE)
[2018-03-06 01:08] LABS: LYMPHOCYTE 4 % (20-50); MONOCYTE 9 % (0-10); NEUTROPHIL 85 % (42-75); REACTIVE LYMPHOCYTES 2 % (0-0); TOTAL CELLS COUNTED 100
[2018-03-06 01:09] LABS: ANISOCYTOSIS SLIGHT
[2018-03-06 01:10] LABS: HYPOCHROMIC SLIGHT; OVALOCYTES SLIGHT; POIKILOCYTOSIS SLIGHT
[2018-03-06 01:11] LABS: PLATELET ESTIMATE NORMAL (NORMAL); TEARDROP CELLS SLIGHT
[2018-03-06 07:29] LABS: HEMOGLOBIN 13.5 g/dL (12.0-16.0); MEAN CELL VOLUME 82.5 fl (81.0-99.0); MEAN CORPUSCULAR HEMOGLOBIN 27.4 pg (27.0-31.0); MEAN CORPUSCULAR HGB CONC 33.3 g/dL (33.0-37.0); RBC 4.91 Mil/uL (3.80-5.20); RED CELL DISTRIBUTION WIDTH 15.5 % (11.5-14.5); WHITE BLOOD COUNT 8.1 K/uL (4.8-10.8)
[2018-03-06 07:49] LABS: CALCIUM 8.4 mg/dL (8.4-10.2)
--- NOTE | 2018-03-06 09:17 | CARD ---
APPROVED REPORT EKG Measurement Heart [id number] <Conclusion> Normal sinus rhythm Right superior axis deviation Abnormal ECG baseline artefact
[2018-03-06] MEDS ORDERED: Albuterol 0.083% Inhal Sol (2.5 mg/3 mL) UD INH PRN (12:37)
[2018-03-06] MEDS ORDERED: Albuterol HFA 90 mcg/actuation (8 g) INH PRN ×2 (12:37→13:30)
[2018-03-06] MEDS ORDERED: THYROID PORK 30 MG PO SCH (12:45)
[2018-03-06] MEDS: Albuterol-Ipratrop 3 mg / 0.5 (3 ml) UD INH SCH ×2 (14:33→19:32)
--- NOTE | 2018-03-06 19:18 | CP.PCM.PN ---
Subjective - Date & Time of Evaluation Date of Evaluation: 03/06/18 Time of Evaluation: 19:12 - Subjective Subjective: I D NOTE PATIENT KNOWN TO ME FROM PREVIOUS ADMISSIONS . HAS MS ALONG C CHRONIC UTIs is catheterized 2X DAILY CULTURES SHOW E.COLI BETTER MICs FOR MEROPENEM WILL GIVE IN ADJUSTED RENAL DOSE Objective - Vital Signs/Intake and Output Vital Signs (last 24 hours): Temp Pulse Resp BP Pulse Ox 98.3 F 99 H 20 125/70 99 03/06/18 17:00 03/06/18 17:00 03/06/18 17:00 03/06/18 17:00 03/06/18 14:09 Intake and Output: 03/06/18 03/07/18 18:59 06:59 Output Total 600 Balance -600 - Medications Medications: Current Medications Acetaminophen (Tylenol 325mg Tab) 650 mg PO Q6 PRN PRN Reason: Fever >100.4 F Albuterol (Ventolin Hfa 90 Mcg/Actuation (8 G)) 2 puff INH RQ6 PRN PRN Reason: sob Albuterol/Ipratropium (Duoneb 3 Mg/0.5 Mg (3 Ml) Ud) 3 ml INH RQ6 NIDA Alprazolam (Xanax) 0.5 mg PO TID PRN PRN Reason: Anxiety Aspirin (Aspirin) 325 mg PO PRN PRN PRN Reason: Pain, Mild (1-3) Heparin Sodium (Porcine) (Heparin) 5,000 units SC Q8 NIDA PRN Reason: Protocol Last Admin: 03/06/18 16:31 Dose: Not Given Home Med (Letrozole [Femara]) 2.5 mg PO DAILY [facility] Meropenem 500 mg/ Sodium (Chloride) 100 mls @ 100 mls/hr IVPB Q12H NIDA PRN Reason: Protocol Liothyronine Sodium (Cytomel) 5 mcg PO DAILY [facility] Last Admin: 03/06/18 16:31 Dose: Not Given Ondansetron HCl (Zofran Odt) 4 mg PO Q8H PRN PRN Reason: Nausea/Vomiting Thyroid ([place] Thyroid) 30 mg PO DAILY@0600 [facility] - Labs Labs: 03/06/18 07:00 03/06/18 07:00 PT 12.9 Seconds (9.8-13.1) 03/05/18 23:15 INR 1.2 (0.9-1.2) 03/05/18 23:15 APTT 31.2 Seconds (25.6-37.1) 03/05/18 23:15
[2018-03-06] MEDS: Meropenem 500 MG in Sodium Chloride 0.9% 100 ML IVPB SCH (20:00)
[2018-03-07] MEDS: Albuterol-Ipratrop 3 mg / 0.5 (3 ml) UD INH SCH ×4 (01:28→19:34)
[2018-03-07] MEDS ORDERED: THYROID 30 MG TAB PO SCH (06:00)
[2018-03-07] MEDS ORDERED: THYROID PORK 30 MG PO SCH (06:00)
[2018-03-07] MEDS: Meropenem 500 MG in Sodium Chloride 0.9% 100 ML IVPB SCH ×2 (06:21→18:34)
[2018-03-07 06:55] LABS: HEMOGLOBIN 12.6 g/dL (12.0-16.0); MEAN CELL VOLUME 82.2 fl (81.0-99.0); MEAN CORPUSCULAR HEMOGLOBIN 27.4 pg (27.0-31.0); MEAN CORPUSCULAR HGB CONC 33.3 g/dL (33.0-37.0); RBC 4.62 Mil/uL (3.80-5.20); RED CELL DISTRIBUTION WIDTH 16.1 % (11.5-14.5); WHITE BLOOD COUNT 5.1 K/uL (4.8-10.8)
[2018-03-07 06:56] LABS: CALCIUM 8.4 mg/dL (8.4-10.2)
--- NOTE | 2018-03-07 11:53 | CP.PCM.PN ---
Subjective - Date & Time of Evaluation Date of Evaluation: 03/07/18 Time of Evaluation: 11:52 - Subjective Subjective: doing well feeling improved renal fx improving as well hd stable nad Objective - Vital Signs/Intake and Output Vital Signs (last 24 hours): Temp Pulse Resp BP Pulse Ox 98.4 F 90 18 117/65 95 03/07/18 08:23 03/07/18 08:23 03/07/18 08:23 03/07/18 08:23 03/07/18 08:23 Intake and Output: 03/07/18 03/07/18 06:59 18:59 Output Total 600 Balance -600 General: awake, alert HEENT: NCAT, PERRL, EOMI HEART: RRR, S1, S2 no MRG LUNG: CTAB, no WRR ABD: soft, NT, ND, no mass, no HSM EXT: warm, well perfused NEURO: awake, alert SKIN: warm, dry PSYCH: normal mood, normal affect - Medications Medications: Current Medications Acetaminophen (Tylenol 325mg Tab) 650 mg PO Q6 PRN PRN Reason: Fever >100.4 F Albuterol (Ventolin Hfa 90 Mcg/Actuation (8 G)) 2 puff INH RQ6 PRN PRN Reason: sob Albuterol/Ipratropium (Duoneb 3 Mg/0.5 Mg (3 Ml) Ud) 3 ml INH RQ6 [facility] Last Admin: 03/07/18 07:53 Dose: 3 ml Alprazolam (Xanax) 0.5 mg PO TID PRN PRN Reason: Anxiety Aspirin (Aspirin) 325 mg PO DAILY [facility] Heparin Sodium (Porcine) (Heparin) 5,000 units SC Q8 NIDA PRN Reason: Protocol Last Admin: 03/07/18 09:07 Dose: Not Given Home Med (Letrozole [Femara]) 2.5 mg PO DAILY [facility] Meropenem 500 mg/ Sodium (Chloride) 100 mls @ 100 mls/hr IVPB Q12H NIDA PRN Reason: Protocol Last Admin: 03/07/18 06:21 Dose: 100 mls/hr Liothyronine Sodium (Cytomel) 5 mcg PO DAILY [facility] Last Admin: 03/07/18 09:05 Dose: 5 mcg Ondansetron HCl (Zofran Odt) 4 mg PO Q8H PRN PRN Reason: Nausea/Vomiting Thyroid ([place] Thyroid) 30 mg PO DAILY@0600 [facility] Last Admin: 03/07/18 06:18 Dose: Not Given - Labs Labs: 03/07/18 05:35 03/07/18 05:35 PT 12.9 Seconds (9.8-13.1) 03/05/18 23:15 INR 1.2 (0.9-1.2) 03/05/18 23:15 APTT 31.2 Seconds (25.6-37.1) 03/05/18 23:15 Assessment and Plan - Assessment and Plan (Free Text) Plan: 66 y/o female with MHx significant for asthma, MS, and prior breast Ca who presents to the ED with fever, dysuria. Of note patient has to self cath BID. Patient had been seen in ER here and was placed on Abx several weeks ago ( bactrim which was switched to macrobid) but because of side GI side effects, she did not finish the course. She comes in again with fever and dysuria. Denies n/v/d. Nothing has made symptoms better or worse. 1) Sepsis with uti admitted several years ago and was placed on meropenem based on sensitivities; this time, recent UA shows resistance again to multiple drugs. - Zosyn changed to Merrem per ID - afebrile, no WBC. -Will obtain ID consult with Dr. Byrnes -Conor for fever -IVF 2) DANII - Improving with hydration 3) DVT PPx -- SQ heparin
[2018-03-08] MEDS: Albuterol-Ipratrop 3 mg / 0.5 (3 ml) UD INH SCH ×4 (01:51→19:02)
[2018-03-08] MEDS: Meropenem 500 MG in Sodium Chloride 0.9% 100 ML IVPB SCH ×2 (06:21→19:07)
[2018-03-08 06:38] LABS: HEMOGLOBIN 12.3 g/dL (12.0-16.0); MEAN CELL VOLUME 82.5 fl (81.0-99.0); MEAN CORPUSCULAR HGB CONC 32.7 g/dL (33.0-37.0); RBC 4.54 Mil/uL (3.80-5.20); RED CELL DISTRIBUTION WIDTH 15.9 % (11.5-14.5); WHITE BLOOD COUNT 4.3 K/uL (4.8-10.8)
[2018-03-08 06:42] LABS: CALCIUM 8.5 mg/dL (8.4-10.2)
[2018-03-08] MEDS: THYROID 30 MG TAB PO SCH (08:22)
--- NOTE | 2018-03-08 12:00 | CP.PCM.PN ---
Subjective - Date & Time of Evaluation Date of Evaluation: 03/08/18 Time of Evaluation: 11:30 - Subjective Subjective: no fever denies CP no SOB no abd pain no flank pain Objective - Vital Signs/Intake and Output Vital Signs (last 24 hours): Temp Pulse Resp BP Pulse Ox 98.0 F 68 18 135/83 98 03/08/18 08:02 03/08/18 08:02 03/08/18 08:02 03/08/18 08:02 03/08/18 08:22 Intake and Output: 03/08/18 03/08/18 06:59 18:59 Output Total 700 Balance -700 - Medications Medications: Current Medications Acetaminophen (Tylenol 325mg Tab) 650 mg PO Q6 PRN PRN Reason: Fever >100.4 F Albuterol (Ventolin Hfa 90 Mcg/Actuation (8 G)) 2 puff INH RQ6 PRN PRN Reason: sob Albuterol/Ipratropium (Duoneb 3 Mg/0.5 Mg (3 Ml) Ud) 3 ml INH RQ6 NIDA Last Admin: 03/08/18 07:37 Dose: 3 ml Alprazolam (Xanax) 0.5 mg PO TID PRN PRN Reason: Anxiety Aspirin (Aspirin) 325 mg PO DAILY [facility] Last Admin: 03/08/18 08:28 Dose: Not Given Heparin Sodium (Porcine) (Heparin) 5,000 units SC Q8 NIDA PRN Reason: Protocol Last Admin: 03/08/18 08:24 Dose: Not Given Home Med (Letrozole [Femara]) 2.5 mg PO HS [facility] Meropenem 500 mg/ Sodium (Chloride) 100 mls @ 100 mls/hr IVPB Q12H NIDA PRN Reason: Protocol Last Admin: 03/08/18 06:21 Dose: 100 mls/hr Liothyronine Sodium (Cytomel) 5 mcg PO DAILY [facility] Last Admin: 03/08/18 08:23 Dose: 5 mcg Ondansetron HCl (Zofran Odt) 4 mg PO Q8H PRN PRN Reason: Nausea/Vomiting Thyroid ([place] Thyroid) 30 mg PO DAILY@0800 [facility] Last Admin: 03/08/18 08:22 Dose: 30 mg - Labs Labs: 03/08/18 05:50 03/08/18 05:50 PT 12.9 Seconds (9.8-13.1) 03/05/18 23:15 INR 1.2 (0.9-1.2) 03/05/18 23:15 APTT 31.2 Seconds (25.6-37.1) 03/05/18 23:15 - Constitutional Appears: No Acute Distress - Head Exam Head Exam: NORMAL INSPECTION, NORMOCEPHALIC - Eye Exam Eye Exam: EOMI, Normal appearance Pupil Exam: NORMAL ACCOMODATION - ENT Exam ENT Exam: Mucous Membranes Moist, Normal External Ear Exam - Neck Exam Neck Exam: Full ROM. absent: Meningismus - Respiratory Exam Respiratory Exam: Wheezes, NORMAL BREATHING PATTERN. absent: Respiratory Distress - Cardiovascular Exam Cardiovascular Exam: REGULAR RHYTHM, +S1, +S2 - GI/Abdominal Exam GI & Abdominal Exam: Soft, Normal Bowel Sounds. absent: Tenderness - Extremities Exam Extremities Exam: Normal Capillary Refill. absent: Calf Tenderness, Pedal Edema - Back Exam Back Exam: Full ROM. absent: CVA tenderness (L), CVA tenderness (R), vertebral tenderness - Neurological Exam Neurological Exam: Alert, Awake, Oriented x3 Neuro motor strength exam: Left Upper Extremity: 5, Right Upper Extremity: 5, Left Lower Extremity: 4, Right Lower Extremity: 4 - Psychiatric Exam Psychiatric exam: Normal Affect, Normal Mood - Skin Skin Exam: Dry, Normal Color, Warm Assessment and Plan - Assessment and Plan (Free Text) Assessment: 66 y/o female with MHx significant for Asthma, MUltiple Sclerosis - does Self Urine Straight catheterization BID presented to the ED with fever, dysuria. Patient had been seen in ER here and was placed on Abx several weeks ago ( bactrim which was switched to macrobid) but because of side GI side effects, she did not finish the course. She comes in again with fever and dysuria. Denies n/v/d. Nothing has made symptoms better or worse. 1) Sepsis sec to Straight UTI Urine c/s : E coli - Zosyn changed to Merrem per ID recommendation - afebrile, no WBC. -ID consult with Dr. Byrnes -Tylenol for fever -IVF hydration - plan to d/c to TCU for IV antibiotics in am 2) DANII on CKD Stage III - Improving with hydration 3. Multiple Sclerosis - pt follows up with Neurology as outpt - ambulates with wheelchair - PT consult - does Urine Straight cath BID 4. COPD, mild exacerbation -pt has some wheezing - start Advair bid - RTC Duoneb 5. Hypothyroidism cont home Thyroid meds 6. Hx of Breast CA cont Femara 3) DVT PPx SCD refuses Heparin or Lovenox
[2018-03-08] MEDS: Fluticasone-Salmeterol 250-50mcg Diskus IH SCH (21:30)
[2018-03-08 23:51] VITALS: RESP 18
[2018-03-09] MEDS: Albuterol-Ipratrop 3 mg / 0.5 (3 ml) UD INH SCH ×2 (01:00→08:59)
[2018-03-09] MEDS: Meropenem 500 MG in Sodium Chloride 0.9% 100 ML IVPB SCH (06:54)
[2018-03-09 07:14] LABS: CALCIUM 8.8 mg/dL (8.4-10.2)
[2018-03-09 08:23] VITALS: BP 134/75; PULSE 85; TEMP 97.7; O2SAT 94
[2018-03-09] MEDS: Fluticasone-Salmeterol 250-50mcg Diskus IH SCH (09:34)
[2018-03-09] MEDS: THYROID 30 MG TAB PO SCH (09:35)
--- NOTE | 2018-03-09 11:14 | CP.PCM.DIS ---
Provider - Provider Date of Admission: 03/06/18 00:19 Attending physician: Gavino Allison MD Consults: Pulm: Dr Vanessa ID: Dr Byrnes Time Spent in preparation of Discharge (in minutes): 25 Diagnosis - Discharge Diagnosis (1) Urinary tract infection Status: Chronic Priority: High (2) Urinary retention Status: Chronic Priority: High Comment: sec to MS (3) Multiple sclerosis Status: Acute (4) DANII (acute kidney injury) Status: Acute (5) CKD (chronic kidney disease), stage III Status: Chronic (6) COPD exacerbation Status: Acute (7) Asthma with COPD with exacerbation Status: Acute (8) Mild intermittent asthma Status: Chronic (9) Breast CA Status: Chronic (10) Hypothyroid Status: Chronic Hospital Course - Lab Results Lab Results: Micro Results 03/05/18 23:24 Blood Blood Culture - Preliminary NO GROWTH AFTER 3 DAYS 03/05/18 22:54 Blood Blood Culture - Preliminary NO GROWTH AFTER 3 DAYS 03/05/18 00:02 Urine,Catheterized Urine Culture - Final Escherichia Coli Most Recent Lab Values WBC 4.3 K/uL (4.8-10.8) L 03/08/18 05:50 RBC 4.54 Mil/uL (3.80-5.20) 03/08/18 05:50 Hgb 12.3 g/dL (12.0-16.0) 03/08/18 05:50 Hct 37.4 % (34.0-47.0) 03/08/18 05:50 MCV 82.5 fl (81.0-99.0) 03/08/18 05:50 MCH 27.0 pg (27.0-31.0) 03/08/18 05:50 MCHC 32.7 g/dL (33.0-37.0) L 03/08/18 05:50 RDW 15.9 % (11.5-14.5) H 03/08/18 05:50 Plt Count 270 K/uL (130-400) 03/08/18 05:50 MPV 7.2 fl (7.2-11.7) 03/05/18 23:15 Neut % (Auto) 85.0 % (50.0-75.0) H 03/05/18 23:15 Lymph % (Auto) 6.1 % (20.0-40.0) L 03/05/18 23:15 [place] % (Auto) 8.5 % (0.0-10.0) 03/05/18 23:15 Eos % (Auto) 0.2 % (0.0-4.0) 03/05/18 23:15 Baso % (Auto) 0.2 % (0.0-2.0) 03/05/18 23:15 Neut # (Auto) 9.0 K/uL (1.8-7.0) H 03/05/18 23:15 Lymph # (Auto) 0.6 K/uL (1.0-4.3) L 03/05/18 23:15 [place] # (Auto) 0.9 K/uL (0.0-0.8) H 03/05/18 23:15 Eos # (Auto) 0.0 K/uL (0.0-0.7) 03/05/18 23:15 Baso # (Auto) 0.0 K/uL (0.0-0.2) 03/05/18 23:15 Neutrophils % (Manual) 85 % (42-75) H 03/05/18 23:15 Lymphocytes % (Manual) 4 % (20-50) L 03/05/18 23:15 Reactive Lymphs % 2 % (0-0) H 03/05/18 23:15 Monocytes % (Manual) 9 % (0-10) 03/05/18 23:15 Platelet Estimate Normal (NORMAL) 03/05/18 23:15 Hypochromasia (manual) Slight 03/05/18 23:15 Poikilocytosis (manual Slight 03/05/18 23:15 Anisocytosis (manual) Slight 03/05/18 23:15 Tear Drop Cells Slight 03/05/18 23:15 Ovalocytes Slight 03/05/18 23:15 PT 12.9 Seconds (9.8-13.1) 03/05/18 23:15 INR 1.2 (0.9-1.2) 03/05/18 23:15 APTT 31.2 Seconds (25.6-37.1) 03/05/18 23:15 pO2 53 mm/Hg (30-55) 03/05/18 23:22 VBG pH 7.48 (7.32-7.43) H 03/05/18 23:22 VBG pCO2 38 mmHg (40-60) L 03/05/18 23:22 VBG HCO3 28.3 mmol/L 03/05/18 23:22 VBG Total CO2 29.5 mmol/L (22-28) H 03/05/18 23:22 VBG O2 Sat (Calc) 91.8 % (40-65) H 03/05/18 23:22 VBG Base Excess 4.6 mmol/L (0.0-2.0) H 03/05/18 23:22 VBG Potassium 4.1 mmol/L (3.6-5.2) 03/05/18 23:22 Sodium 132.0 mmol/L (132-148) 03/05/18 23: Chloride 97.0 mmol/L (98-107) L 03/05/18 23:22 Glucose 134 mg/dL (65-105) H 03/05/18 23:22 Lactate 0.8 mmol/L (0.7-2.1) 03/05/18 23: FiO2 21.0 % 03/05/18 23: Sodium 143 mmol/l (132-148) 03/09/18 05:40 Potassium 3.8 MMOL/L (3.6-5.0) 03/09/18 05:40 Chloride 105 mmol/L (98-107) 03/09/18 05:40 Carbon Dioxide 24 mmol/L (22-30) 03/09/18 05:40 Anion Gap 18 (10-20) 03/09/18 05:40 BUN 29 mg/dl (7-17) H 03/09/18 05:40 Creatinine 1.4 mg/dl (0.7-1.2) H 03/09/18 05:40 Est GFR ( Amer) 44 03/09/18 05:40 Est GFR (Non-Af Amer) 37 03/09/18 05:40 POC Glucose (mg/dL) 115 mg/dL (65-110) H 03/08/18 15:59 Random Glucose 137 mg/dL (65-105) H 03/09/18 05:40 Calcium 8.8 mg/dL (8.4-10.2) 03/09/18 05:40 Phosphorus 3.1 mg/dl (2.5-4.5) 03/05/18 23:15 Magnesium 2.4 MG/DL (1.6-2.3) H 03/05/18 23:15 Total Bilirubin 1.0 mg/dl (0.2-1.3) 03/05/18 23:15 AST 26 U/L (14-36) 03/05/18 23:15 ALT 34 U/L (9-52) 03/05/18 23:15 Alkaline Phosphatase 88 U/L (38-126) 03/05/18 23:15 Lactate Dehydrogenase 383 U/L (313-618) 03/05/18 23:15 Total Protein 7.7 G/DL (6.3-8.2) 03/05/18 23:15 Albumin 4.1 g/dL (3.5-5.0) 03/05/18 23:15 Globulin 3.6 gm/dL (2.2-3.9) 03/05/18 23:15 Albumin/Globulin Ratio 1.1 (1.0-2.1) 03/05/18 23:15 Amylase 74 U/L (30-110) 03/05/18 23:15 Lipase 68 U/L (23-300) 03/05/18 23:15 Venous Blood Potassium 4.1 mmol/L (3.6-5.2) 03/05/18 23:22 Urine Color Yellow (YELLOW) 03/05/18 00:02 Urine Clarity Cloudy (Clear) 03/05/18 00:02 Urine pH 6.0 (5.0-8.0) 03/05/18 00:02 Ur Specific [place] 1.009 (1.003-1.030) 03/05/18 00:02 Urine Protein Negative mg/dL (NEGATIVE) 03/05/18 00:02 Urine Glucose (UA) Neg mg/dL (Normal) 03/05/18 00:02 Urine Ketones Negative mg/dL (NEGATIVE) 03/05/18 00:02 Urine Blood Moderate (NEGATIVE) 03/05/18 00:02 Urine Nitrate Negative (NEGATIVE) 03/05/18 00:02 Urine Bilirubin Negative (NEGATIVE) 03/05/18 00:02 Urine Urobilinogen 0.2-1.0 mg/dL (0.2-1.0) 03/05/18 00:02 Ur Leukocyte Esterase Large Sandra/uL (Negative) 03/05/18 00:02 Urine RBC (Auto) 17 /hpf (0-3) H 03/05/18 00:02 Urine Microscopic WBC 279 /hpf (0-5) H 03/05/18 00:02 Ur Squamous Epith Cells < 1 /hpf (0-5) 03/05/18 00:02 Urine Bacteria Occ (<OCC) H 03/05/18 00:02 Urine Opiates Screen Negative (NEGATIVE) 03/05/18 00:02 Urine Methadone Screen Negative (NEGATIVE) 03/05/18 00:02 Ur Barbiturates Screen Negative (NEGATIVE) 03/05/18 00:02 Ur Phencyclidine Scrn Negative (NEGATIVE) 03/05/18 00:02 Ur Amphetamines Screen Negative (NEGATIVE) 03/05/18 00:02 U Benzodiazepines Scrn Positive (NEGATIVE) 03/05/18 00:02 U Oth Cocaine Metabols Negative (NEGATIVE) 03/05/18 00:02 U Cannabinoids Screen Negative (NEGATIVE) 03/05/18 00:02 Alcohol, Quantitative < 10 mg/dl (0-10) 03/05/18 23:15 Blood Type A POSITIVE 03/05/18 23:15 Blood Type Confirm A POSITIVE 03/06/18 14:37 Antibody Screen Negative 03/05/18 23:15 BBK History Checked No verified bt 03/05/18 23:15 - Hospital Course Hospital Course: 66 y/o female with MHx significant for Asthma, MUltiple Sclerosis - does Self Urine Straight catheterization BID presented to the ED with fever, dysuria. Patient had been seen in ER here and was placed on Abx several weeks ago ( bactrim which was switched to macrobid) but because of side GI side effects, she did not finish the course. She comes in again with fever and dysuria. Denies n/v/d. Nothing has made symptoms better or worse. 1) Sepsis sec to Straight UTI Urine c/s : E coli - Zosyn changed to Merrem per ID recommendation - afebrile, no WBC. -ID consulted: Dr. Byrnes -Tylenol for fever -IVF hydration - d/c to TCU for IV antibiotics x 1 more week 2) DANII on CKD Stage III - Improving with hydration 3. Multiple Sclerosis - pt follows up with Neurology as outpt - ambulates with wheelchair - PT consulted - does Urine Straight cath BID 4. COPD, mild exacerbation -pt has some wheezing - pt states she is allergic to inhaled steroids - cont Albuterol -Pulm consult : Dr Vanessa 5. Hypothyroidism cont home Thyroid meds 6. Hx of Breast CA cont Femara 3) DVT PPx SCD refuses Heparin or Lovenox Discharge Exam - Head Exam Head Exam: ATRAUMATIC, NORMAL INSPECTION, NORMOCEPHALIC - Eye Exam Eye Exam: Normal appearance Pupil Exam: NORMAL ACCOMODATION - ENT Exam ENT Exam: Mucous Membranes Moist, Normal External Ear Exam - Neck Exam Neck exam: Full Rom - Respiratory Exam Respiratory Exam: Rhonchi, Wheezes, NORMAL BREATHING PATTERN. absent: Respiratory Distress - Cardiovascular Exam Cardiovascular Exam: REGULAR RHYTHM, +S1, +S2 - GI/Abdominal Exam GI & Abdominal Exam: Normal Bowel Sounds, Soft. absent: Tenderness - Extremities Exam Extremities exam: normal capillary refill, pedal pulses present Additional comments: no calf tenderness - Back Exam Back exam: absent: CVA tenderness (L), CVA tenderness (R), vertebral tenderness - Neurological Exam Neurological exam: Alert, Oriented x3, Reflexes Normal - Psychiatric Exam Psychiatric exam: Normal Affect, Normal Mood - Skin Skin Exam: Dry, Normal Color, Warm Discharge Plan - Discharge Medications Prescriptions: RX: MEROPENEM 500 MG in NS [Merrem IV 500 MG/NS 50 ML] 500 mg IV Q12 #14 piggyback - Follow Up Plan Condition: IMPROVED Disposition: TRANSF TO SNF Instructions: Acute Kidney Failure (DC), Urinary Tract Infection in Women (DC) Additional Instructions: d/c pt to TCU
--- NOTE | 2018-03-09 14:15 | CP.PCM.CON ---
History of Present Illness - History of Present Illness History of Present Illness: This 72-year-old female is well-known to me from the outpatient setting where she is followed because of her asthma and COPD. 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 She has had a number of hospitalizations because of recurrent urinary tract infection and has had sepsis with a drug-resistant organism as a result. At the present time she appears to be improving from her present urinary infection, but has developed some audible wheezing and shortness of breath. A chest x-ray will be requested to evaluate for any possible effusions or infiltrates. A prior CT scan done approximately one year ago did show signs of centrilobular emphysema but was otherwise unremarkable. She does have a complicated medical history which includes multiple sclerosis with urinary retention as well as prior breast cancer, pneumonia, hypothyroidism , cervical cancer and uterine cancer. She does have a history of pneumonia 2 in the past as well. There is no history of tuberculosis or coronary artery disease. No history of diabetes. No chronic renal disease. Past surgical history includes repair of torn right rotator cuff, total knee replacement, lumpectomy for breast cancer, hysterectomy, repair of tibial fracture. Social history: Former cigarette smoker but discontinued habit in 1998. No alcohol use or illicit drug use. Multiple drug allergies which include codeine, morphine, [place], quinolone. Allergies shellfish and eggplant. Family history includes congestive cardiac failure as well as bronchial asthma. Past Patient History - Infectious Disease Hx of Infectious Diseases: None - Past Medical History & Family History Past Medical History?: Yes - Past Social History Smoking Status: Former Smoker Chewing Tobacco Use: No Cigar Use: No Alcohol: None Drugs: Denies Home Situation {Lives}: With Family - CARDIAC Hx Cardiac Disorders: No - PULMONARY Hx Asthma: Yes Hx Bronchitis: Yes - NEUROLOGICAL Hx Multiple Sclerosis: Yes - HEENT Hx Sinusitis: Yes - RENAL Hx Chronic Kidney Disease: No - ENDOCRINE/METABOLIC Hx Hypothyroidism: Yes - HEMATOLOGICAL/ONCOLOGICAL Hx Blood Transfusions: Yes Hx Cancer: Yes (rt breast ,cervical, uterine) Hx Human Immunodeficiency Virus (HIV): No Other/Comment: radiation - INTEGUMENTARY Hx Dermatological Problems: No - MUSCULOSKELETAL/RHEUMATOLOGICAL Hx Falls: Yes - GASTROINTESTINAL Hx Pancreatitis: Yes - GENITOURINARY/GYNECOLOGICAL Hx Cervical Cancer: Yes Hx Incontinence: Yes Hx Uterine Cancer: Yes Hx Urinary Tract Infection: Yes - PSYCHIATRIC Hx Anxiety: Yes - SURGICAL HISTORY Hx Cataract Extraction: Yes Hx Hysterectomy: Yes Hx Joint Replacement: Yes (Right knee) Hx Mastectomy: Yes (Lumpectomy right breast) - ANESTHESIA Hx Anesthesia: Yes Hx Anesthesia Reactions: No Meds Home Medications: Home Medication List Medication Instructions Recorded Confirmed Type Acetaminophen [Tylenol 325mg tab] 650 mg PO Q6 PRN tab 03/09/18 Rx Albuterol/Ipratropium [Duoneb 3 3 ml INH RQ6 neb 03/09/18 Rx mg/0.5 mg (3 ml) UD] Fluticasone/Salmeterol 250/50 1 puff IH Q12 puff 03/09/18 Rx [Advair Diskus 250/50] Heparin 5,000 units SC Q8 vial 03/09/18 Rx MEROPENEM 500 MG in NS [Merrem IV 500 mg IV Q12 #14 piggyback 03/09/18 Rx 500 MG/NS 50 ML] Thyroid [[place] Thyroid] 30 mg PO DAILY@0800 tab 03/09/18 Rx Allergies/Adverse Reactions: Allergies Allergy/AdvReac Type Severity Reaction Status Date / Time ciprofibrate Allergy unknown Verified 03/09/18 13:59 fluticasone Allergy ANAPHYLAXIS Verified 03/09/18 14:01 [From Advair Diskus] ofloxacin [From Floxin] Allergy unknown Verified 03/09/18 14:01 salmeterol Allergy DIZZINESS Verified 03/09/18 14:01 [From Advair Diskus] shellfish derived Allergy ANAPHYLAXIS Verified 03/09/18 14:01 Physical Exam - Additional Findings Additional findings: Well-nourished, well-developed female who appears in no acute distress. Memory is intact and speech is fluent. No apparent focal motor weakness. Gen. weakness of both lower extremities is noted. Pharynx is pink and mucous membranes are moist. No exudate. Nasal passages are patent without bleeding or exudate. Conjunctivae are pink and nonicteric. EOMI. Neck is supple and trachea is midline. No neck vein distention or carotid bruit. No palpable lymphadenopathy. No palpable thyromegaly. No dullness on chest percussion, equal expansion. Breath sounds are present bilaterally, slightly diminished. Occasional expiratory wheezes are heard in the anterior lung givens more right than left. Rare dry rales are heard in the lower lobes posteriorly. Occasional sonorous rhonchi in the dependent lung givens. No bronchial breathing or egophony. No rub. Heart sounds are slightly distant. Rhythm is regular. No murmur is heard. Abdomen is fleshy, nontender with normal bowel sounds. No palpable HSM. No CVA tenderness. Trace ankle edema is noted bilaterally. Peripheral pulses are well felt in all 4 extremities. No cyanosis. No calf tenderness or palpable venous cords. Results - Vital Signs Recent Vital Signs: Last Vital Signs Temp 97.7 F 03/09/18 08:23 Pulse 85 03/09/18 08:23 Resp 18 03/09/18 08:23 BP 134/75 03/09/18 08:23 Pulse Ox 94 L 03/09/18 08:23 - Labs Result Diagrams: 03/08/18 05:50 03/09/18 05:40 Labs: Laboratory Results - last 24 hr 03/08/18 03/09/18 15:59 05:40 Sodium 143 Potassium 3.8 Chloride 105 Carbon Dioxide 24 Anion Gap 18 BUN 29 H Creatinine 1.4 H Est GFR ( Amer) 44 Est GFR (Non-Af Amer) 37 POC Glucose (mg/dL) 115 H Random Glucose 137 H Calcium 8.8 Assessment & Plan (1) Asthma Status: Chronic Priority: High Comment: Patient with a prior smoking history probably has an element of asthma/ COPD overlap syndrome. Presently there appears to be some exacerbation of her bronchospasm and she will be maintained on albuterol via nebulizer for the present time. Ipratropium will be withheld at this time because of her history of glaucoma. If albuterol alone is insufficient to maintain her in a symptom free state then ipratropium may be added cautiously in the future. (2) Urinary retention Status: Chronic Priority: High Comment: Secondary phenomenon related to her multiple sclerosis requiring catheterization of the bladder on a regular basis at home. She has declined having suprapubic nephrostomy done in the past. (3) Urinary tract infection Status: Chronic Priority: High Comment: Secondary phenomenon as a consequence to the above. - Date & Time Date: 03/09/18 Time: 11:00
[2018-03-09] MEDS ORDERED: Albuterol 0.083% Inhal Sol (2.5 mg/3 mL) UD INH PRN (14:34)
[2018-03-09] MEDS ORDERED: Albuterol 0.083% Inhal Sol (2.5 mg/3 mL) UD INH SCH (16:00)
--- NOTE | 2018-03-09 17:15 | RAD ---
PROCEDURE: CHEST RADIOGRAPH, 1 VIEW HISTORY: Shortness of breath COMPARISON: Chest radiographs 07/19/2017. FINDINGS: LUNGS: Lungs maybe more penetrated technically than previously however an element of air trapping is difficult to exclude given the somewhat hyperlucent pattern seen throughout both lung givens overall diffusely. The prior comparison may have been underpenetrated as well and the overall appearance may simply be a function of improved inspiratory effort. No alveolitis bilaterally. PLEURA: No pneumothorax or pleural fluid seen. CARDIOVASCULAR: Normal. OSSEOUS STRUCTURES: No significant abnormalities. VISUALIZED UPPER ABDOMEN: Normal. OTHER FINDINGS: None. IMPRESSION: Improved inspiratory volume and more appropriate technical exposure is favored over air trapping as compared to prior tertiary of 07/19/2017 which was less lucent throughout both lung givens. Further clinical correlation recommended.
== END 2018-03-09 13:40 | DRG 872 ==
LOC: H.ER 21:32 → H.ERHOLD 03-06 00:19 → H.MEDSURG1 03-06 02:53
PROVIDERS: ADMIT Internal Medicine; ATTEND Internal Medicine
DX: A41.9 Sepsis, unspecified organism (principal); J44.1 Chronic obstructive pulmonary disease with (acute) exacerbation; J45.21 Mild intermittent asthma with (acute) exacerbation; N17.9 Acute kidney failure, unspecified; E03.9 Hypothyroidism, unspecified; G35 Multiple sclerosis; H40.9 Unspecified glaucoma; N18.3 Chronic kidney disease, stage 3 (moderate); Z85.41 Personal history of malignant neoplasm of cervix uteri; C50.919 Malignant neoplasm of unspecified site of unspecified female breast; F41.9 Anxiety disorder, unspecified; Z96.651 Presence of right artificial knee joint; R33.9 Retention of urine, unspecified; Z88.6 Allergy status to analgesic agent; Z88.3 Allergy status to other anti-infective agents; Z88.5 Allergy status to narcotic agent; Z91.013 Allergy to seafood; B96.20 Unspecified Escherichia coli [E. coli] as the cause of diseases classified elsewhere

== ENCOUNTER 2018-03-09 12:01 | Inpatient (IN) | payer OTHER ==
[2018-03-09 13:58] VITALS: BMI 25.7
[2018-03-09] MEDS ORDERED: Albuterol HFA 90 mcg/actuation (8 g) INH PRN (14:37)
[2018-03-09] MEDS ORDERED: Meropenem 500 MG in Sodium Chloride 0.9% 100 ML IVPB SCH (15:00)
--- NOTE | 2018-03-09 18:28 | CP.PCM.PN ---
Subjective - Date & Time of Evaluation Date of Evaluation: 03/09/18 Time of Evaluation: 18:25 - Subjective Subjective: iI D NOTE AFEBRILE IMPROVED URINE CULURE ORDERED WELL CMP CONTINUE MEROPENEM Objective - Vital Signs/Intake and Output Vital Signs (last 24 hours): Temp Pulse Resp BP Pulse Ox 97.5 F L 84 20 143/66 98 03/09/18 15:40 03/09/18 15:40 03/09/18 15:40 03/09/18 15:40 03/09/18 15:40 - Medications Medications: Current Medications Acetaminophen (Tylenol 325mg Tab) 650 mg PO Q6 PRN PRN Reason: Fever >100.4 F Albuterol (Ventolin Hfa 90 Mcg/Actuation (8 G)) 2 puff INH Q6H PRN PRN Reason: sob Albuterol Sulfate (Albuterol 0.083% Inhal Renata (2.5 Mg/3 Ml) Ud) 2.5 mg INH RTID NIDA Alprazolam (Xanax) 0.5 mg PO TID PRN PRN Reason: Anxiety Aspirin (Aspirin) 325 mg PO DAILY [facility] Last Admin: 03/09/18 15:31 Dose: Not Given Heparin Sodium (Porcine) (Heparin) 5,000 units SC Q8 NIDA PRN Reason: Protocol Last Admin: 03/09/18 17:11 Dose: Not Given Home Med (Letrozole [Femara]) 2.5 mg PO DAILY [facility] Meropenem 500 mg/ Sodium (Chloride) 100 mls @ 100 mls/hr IVPB Q12H [facility] Last Admin: 03/09/18 15:53 Dose: 100 mls/hr Liothyronine Sodium (Cytomel) 5 mcg PO DAILY [facility] Thyroid ([place] Thyroid) 30 mg PO DAILY@0800 [facility]
[2018-03-09] MEDS ORDERED: Albuterol 0.083% Inhal Sol (2.5 mg/3 mL) UD ONE (19:05)
[2018-03-09] MEDS: Albuterol 0.083% Inhal Sol (2.5 mg/3 mL) UD INH SCH (19:08)
[2018-03-09] MEDS ORDERED: Albuterol-Ipratrop 3 mg / 0.5 (3 ml) UD INH SCH (20:00)
[2018-03-09] MEDS ORDERED: Fluticasone-Salmeterol 250-50mcg Diskus IH SCH (21:00)
[2018-03-09] MEDS ORDERED: Patient's Own Med (Meropenem 500 Mg In Ns [Merrem Iv 500 Mg/Ns 50 Ml] 500 MG) IV SCH (21:00)
[2018-03-09] MEDS ORDERED: Albuterol 0.083% Inhal Sol (2.5 mg/3 mL) UD INH ONE (23:18)
[2018-03-10] MEDS: Meropenem 500 MG in Sodium Chloride 0.9% 100 ML IVPB SCH ×2 (05:03→16:59)
[2018-03-10] MEDS ORDERED: Albuterol 0.083% Inhal Sol (2.5 mg/3 mL) UD INH STA (06:48)
[2018-03-10] MEDS: Albuterol 0.083% Inhal Sol (2.5 mg/3 mL) UD INH SCH ×5 (07:14→19:08)
[2018-03-10] MEDS: THYROID 30 MG TAB PO SCH (08:41)
--- NOTE | 2018-03-10 10:30 | CP.PCM.PN ---
Subjective - Date & Time of Evaluation Date of Evaluation: 03/10/18 Time of Evaluation: 10:30 - Subjective Subjective: This 72-year-old female while on the acute medical floor. She has long- standing history of bronchial asthma, came by COPD overlap. She is a former cigarette smoker but discontinued habit approximately 20 years ago. She has multiple seasonal allergies and she has been using Jennifer-D at home for her symptomatic relief. During this hospitalization she has had some episodic wheezing despite the use of albuterol via nebulizer and/or metered-dose inhaler. She refuses to use ipratropium because of a past history of raised intraocular pressure despite the fact she takes no eyedrops or acetazolamide at the present time. A chest x-ray which was performed yesterday shows hyperlucency of both lung givens consistent with overinflation. No infiltrates were seen, nor any pleural effusions. Her vital signs have remained stable, and she is mildly hypertensive. She is seated on the edge of the bed appears mildly dyspneic with conversation. There is trace ankle edema noted bilaterally. No cyanosis. No calf tenderness. The neck is supple and trachea is midline. No neck vein distention or carotid bruit noted. The pharynx is pink and the mucous membranes appear dry. No exudate. There is no dullness on chest percussion. Equal expansion. Scattered expiratory wheezes are appreciated throughout both lung givens. No bronchial breathing or coffee. Rare dry rales are noted at the lung bases. Rare sonorous rhonchi in the dependent zones of both lungs. Heart sounds are slightly distant. Rhythm is regular. Despite discussion with the patient she continues to refuse to addition of ipratropium to her regimen. Her albuterol has been increased to 4 times daily on a scheduled basis with every 4 hour use of her HFA inhaler when needed. Will add Mucinex 600 mg twice daily to her regimen as well as cautious addition of pseudo-ephedrine 30 mg tablet every 6 hours with close monitoring of her blood pressure. Objective - Vital Signs/Intake and Output Vital Signs (last 24 hours): Temp Pulse Resp BP Pulse Ox 96.6 F L 96 H 20 131/100 H 95 03/10/18 08:29 03/10/18 09:36 03/10/18 08:29 03/10/18 08:29 03/10/18 09:36 - Medications Medications: Current Medications Acetaminophen (Tylenol 325mg Tab) 650 mg PO Q6 PRN PRN Reason: Fever >100.4 F Albuterol (Ventolin Hfa 90 Mcg/Actuation (8 G)) 2 puff INH RQ4 PRN PRN Reason: Shortness of Breath Albuterol Sulfate (Albuterol 0.083% Inhal Renata (2.5 Mg/3 Ml) Ud) 2.5 mg INH RQID NIDA Alprazolam (Xanax) 0.5 mg PO TID PRN PRN Reason: Anxiety Aspirin (Aspirin) 325 mg PO DAILY [facility] Last Admin: 03/10/18 08:46 Dose: 325 mg Heparin Sodium (Porcine) (Heparin) 5,000 units SC Q8 NIDA PRN Reason: Protocol Last Admin: 03/10/18 08:40 Dose: Not Given Home Med (Letrozole [Femara]) 2.5 mg PO HS [facility] Meropenem 500 mg/ Sodium (Chloride) 100 mls @ 100 mls/hr IVPB Q12@0500,1700 [facility] Last Admin: 03/10/18 05:03 Dose: 100 mls/hr Liothyronine Sodium (Cytomel) 5 mcg PO DAILY [facility] Last Admin: 03/10/18 08:42 Dose: 5 mcg Thyroid ([place] Thyroid) 30 mg PO DAILY@0800 [facility] Last Admin: 03/10/18 08:41 Dose: 30 mg Assessment and Plan (1) Asthma with COPD with exacerbation Status: Chronic (2) Urinary retention Status: Chronic (3) Urinary tract infection Status: Acute
--- NOTE | 2018-03-10 11:10 | CP.PCM.HP ---
History of Present Illness - History of Present Illness History of Present Illness: Chief Complaint : transferred to TCU for completion of IV antibiotics for UTI and for physical therapy. HPI: patient is a 72 y/o lady with History of Multiple Sclerosis with Urinary retention and who has been doing twice a day Urinary Straight catheterization for the past 2 yrs. , also with Hx of Asthma, COPD, Breast CA, Hypothyroidism , was initially seen in the ED, weeks ago for fever and dysuria and was sent home on Bactrim then changed to Macrobid . He symptoms persisted so she came back to the ED. She was admitted to Med Surg , ID - DR Byrnes was consulted and she was started on Meropenem. Her Urine c/s showed E coli ( resistant to Bactrim and Intermediate to Macrodantin) . While in the hospital, she was also noted to be wheezing. She received Albuterol Nebulizer treatment. Pulmonary was consulted. Her fever and dysuria resolved and she was transferred to TCU for completion of IV antibiotic treatment and for Physical therapy. Full CODE Surrogate Decision maker : Christos Present on Admission - Present on Admission Any Indicators Present on Admission: Yes Urinary Catheter: Yes ( Straight Catheterization at home) Review of Systems - Review of Systems All systems: reviewed and no additional remarkable complaints except - Constitutional Constitutional: absent: Chills, Fever - EENT Eyes: Blurred Vision. absent: Change in Vision Ears: absent: Decreased Hearing, Dizziness Nose/Mouth/Throat: absent: Epistaxis, Nasal Congestion, Nasal Discharge - Cardiovascular Cardiovascular: absent: Chest Pain at Rest, Lightheadedness, Orthopnea, Palpitations - Respiratory Respiratory: Wheezing. absent: Cough, Dyspnea, Chest Congestion - Gastrointestinal Gastrointestinal: absent: Abdominal Pain, Nausea, Vomiting - Genitourinary Genitourinary: absent: Dysuria Additional comments: Urinary retention due to MS, requires Straight catheterization 2x /day - Musculoskeletal Musculoskeletal: Muscle Weakness - Integumentary Integumentary: absent: Pruritus, Rash - Neurological Neurological: Disequilibrium, Weakness - Psychiatric Psychiatric: absent: Anxiety, Depression - Endocrine Endocrine: absent: Polydipsia, Polyphagia - Hematologic/Lymphatic Hematologic: absent: Easy Bleeding, Easy Bruising Past Patient History - Infectious Disease Hx of Infectious Diseases: None - Tetanus Immunizations Tetanus Immunization: Unknown - Past Medical History & Family History Past Medical History?: Yes Past Family History: Reviewed and not pertinent - Past Social History Smoking Status: Former Smoker Chewing Tobacco Use: No Cigar Use: No Alcohol: Occasional Drugs: Denies Home Situation {Lives}: With Family - CARDIAC Hx Cardiac Disorders: No - PULMONARY Hx Asthma: Yes Hx Chronic Obstructive Pulmonary Disease (COPD): Yes - NEUROLOGICAL Hx Neurological Disorder: Yes Hx Multiple Sclerosis: Yes - HEENT Hx HEENT Problems: Yes Hx Cataracts: Yes Hx Glaucoma: Yes - RENAL Hx Chronic Kidney Disease: No - ENDOCRINE/METABOLIC Hx Hypothyroidism: Yes - HEMATOLOGICAL/ONCOLOGICAL Hx AIDS: No Hx Blood Transfusions: Yes Hx Cancer: Yes (rt breast ,cervical uterine) Hx Human Immunodeficiency Virus (HIV): No Other/Comment: radiation - INTEGUMENTARY Hx Dermatological Problems: No - MUSCULOSKELETAL/RHEUMATOLOGICAL Hx Musculoskeletal Disorders: Yes Hx Falls: Yes - GASTROINTESTINAL Hx Gastrointestinal Disorders: No - GENITOURINARY/GYNECOLOGICAL Hx Genitourinary Disorders: Yes - PSYCHIATRIC Hx Psychophysiologic Disorder: Yes Hx Anxiety: Yes Hx Substance Use: No - SURGICAL HISTORY Hx Surgeries: Yes Hx Breast Biopsy: Yes Hx Cataract Extraction: Yes Hx Hysterectomy: Yes Hx Joint Replacement: Yes (Right knee) Other/Comment: Hx Right breast Lumpectomy - ANESTHESIA Hx Anesthesia: Yes Hx Anesthesia Reactions: No Meds Allergies/Adverse Reactions: Allergies Allergy/AdvReac Type Severity Reaction Status Date / Time ciprofibrate Allergy unknown Verified 03/09/18 13:59 fluticasone Allergy ANAPHYLAXIS Verified 03/09/18 14:01 [From Advair Diskus] ofloxacin [From Floxin] Allergy unknown Verified 03/09/18 14:01 salmeterol Allergy DIZZINESS Verified 03/09/18 14:01 [From Advair Diskus] shellfish derived Allergy ANAPHYLAXIS Verified 03/09/18 14:01 Physical Exam - Constitutional Appears: Non-toxic, No Acute Distress - Head Exam Head Exam: ATRAUMATIC, NORMAL INSPECTION, NORMOCEPHALIC - Eye Exam Pupil Exam: NORMAL ACCOMODATION - ENT Exam ENT Exam: Mucous Membranes Moist, Normal External Ear Exam - Neck Exam Neck exam: Positive for: Full Rom. Negative for: Meningismus - Respiratory Exam Respiratory Exam: Rhonchi, Wheezes, NORMAL BREATHING PATTERN. absent: Respiratory Distress - Cardiovascular Exam Cardiovascular Exam: REGULAR RHYTHM, +S1, +S2 - GI/Abdominal Exam GI & Abdominal Exam: Normal Bowel Sounds, Soft. absent: Tenderness - Extremities Exam Extremities exam: Positive for: full ROM, normal capillary refill, pedal pulses present. Negative for: calf tenderness, pedal edema - Back Exam Back exam: FULL ROM. absent: CVA tenderness (L), CVA tenderness (R) - Neurological Exam Neurological exam: Alert, CN II-XII Intact, Oriented x3 - Psychiatric Exam Psychiatric exam: Normal Affect, Normal Mood - Skin Skin Exam: Dry, Normal Color, Warm Results - Vital Signs Recent Vital Signs: Last Vital Signs Temp 96.6 F L 03/10/18 08:29 Pulse 96 H 03/10/18 09:36 Resp 20 03/10/18 08:29 BP 131/100 H 03/10/18 08:29 Pulse Ox 95 03/10/18 09:36 Assessment & Plan - Assessment and Plan (Free Text) Assessment: 66 y/o female with MHx significant for Asthma, COPD, MUltiple Sclerosis - does Self Urine Straight catheterization BID for Urinary Retention, was admitted to Med Surg for UTI. ID consulted . She was started on IV Meropenem . Urine c/s : E coli . Was also noted to be wheezing . Albuterol neb treatment started . Pulm consulted Transferred to TCU for completion of IV antibiotics and for Physical therapy.. 1) Sepsis sec to Straight UTI Urine c/s : E coli - cont IV Meropenem x 1 more week -ID consult: Dr. Byrnes -Tylenol for fever 2) DANII on CKD Stage III - Improved with hydration 3. Multiple Sclerosis - pt follows up with Neurology as outpt - ambulates with wheelchair - PT consult - Urine Straight cath BID for urinary retention 4. COPD and Asthma with exacerbation -pt has some wheezing - allergic to inhaled steroids - cont Albuterol Nebulizer -Pulm consult : Dr Vanessa 5. Hypothyroidism cont home Thyroid meds 6. Hx of Breast CA cont Femara 3) DVT PPx SCD refuses Heparin or Lovenox Decision To Admit - Pt Status Changed To: Hospital Disposition Of: Inpatient - Admit Certification Admit to Inpatient:: After my assessment, the patient will require hospitalization for at least two midnights. This is because of the severity of symptoms shown, intensity of services needed, and/or the medical risk in this patient being treated as an outpatient. - . Bed Request Type: Transitional Care Unit Admitting Physician: April Damon
[2018-03-10] MEDS: guaiFENesin 600 mg ER Tab PO SCH ×2 (12:45→21:54)
[2018-03-11] MEDS ORDERED: Albuterol 0.083% Inhal Sol (2.5 mg/3 mL) UD INH ONE (02:42)
[2018-03-11] MEDS: Meropenem 500 MG in Sodium Chloride 0.9% 100 ML IVPB SCH ×2 (04:40→16:18)
[2018-03-11] MEDS: Albuterol 0.083% Inhal Sol (2.5 mg/3 mL) UD INH SCH ×4 (07:30→19:47)
[2018-03-11] MEDS: THYROID 30 MG TAB PO SCH (08:35)
[2018-03-11] MEDS: Lactobacillus Acidophilus 500 MU Cap PO SCH ×2 (08:37→16:20)
[2018-03-11] MEDS: guaiFENesin 600 mg ER Tab PO SCH ×2 (11:04→21:35)
[2018-03-11] MEDS ORDERED: Mag&Al/Simet/Diphen/Lido 237 ML KIT PO PRN (17:40)
[2018-03-11] MEDS: Nystatin 100,000 Units/ml Oral Susp 5 ml UD PO SCH (21:38)
[2018-03-12] MEDS ORDERED: Albuterol 0.083% Inhal Sol (2.5 mg/3 mL) UD INH STA (03:12)
[2018-03-12] MEDS: Meropenem 500 MG in Sodium Chloride 0.9% 100 ML IVPB SCH ×2 (04:01→18:13)
[2018-03-12] MEDS: THYROID 30 MG TAB PO SCH (07:06)
[2018-03-12] MEDS: Albuterol 0.083% Inhal Sol (2.5 mg/3 mL) UD INH SCH ×4 (07:14→19:08)
[2018-03-12] MEDS: Nystatin 100,000 Units/ml Oral Susp 5 ml UD PO SCH ×4 (08:35→21:33)
[2018-03-12] MEDS: guaiFENesin 600 mg ER Tab PO SCH ×2 (08:35→21:33)
[2018-03-12] MEDS: Lactobacillus Acidophilus 500 MU Cap PO SCH ×2 (08:36→18:18)
[2018-03-12 16:45] VITALS: RESP 20
[2018-03-13] MEDS: Meropenem 500 MG in Sodium Chloride 0.9% 100 ML IVPB SCH ×2 (04:09→18:09)
[2018-03-13] MEDS ORDERED: Albuterol 0.083% Inhal Sol (2.5 mg/3 mL) UD INH STA ×2 (04:17→23:47)
[2018-03-13] MEDS: THYROID 30 MG TAB PO SCH (06:37)
[2018-03-13] MEDS: Albuterol 0.083% Inhal Sol (2.5 mg/3 mL) UD INH SCH ×4 (07:22→19:28)
[2018-03-13] MEDS: Nystatin 100,000 Units/ml Oral Susp 5 ml UD PO SCH ×4 (08:51→22:22)
[2018-03-13] MEDS: Lactobacillus Acidophilus 500 MU Cap PO SCH ×2 (08:52→18:27)
[2018-03-13] MEDS: guaiFENesin 600 mg ER Tab PO SCH ×2 (08:52→22:22)
--- NOTE | 2018-03-13 11:01 | CP.PCM.PN ---
Subjective - Date & Time of Evaluation Date of Evaluation: 03/13/18 Time of Evaluation: 10:58 - Subjective Subjective: The patient is seated comfortably in bed. She has refused Sudafed on a 6 hour schedule and prefers to use her medication from home which is Jennifer D 24 hours, 1 daily. She does have significant amount of clear mucoid secretions which she is expectorating without any difficulty. She is able to participate with physical therapy and continues to receive her parenteral antibiotics as per infectious disease. She will be cleared for discharge once her antibiotic therapy has been completed. Request has been made for the patient to be allowed to take her Jennifer-D once daily. Objective - Vital Signs/Intake and Output Vital Signs (last 24 hours): Temp Pulse Resp BP Pulse Ox 97.1 F L 86 20 133/82 99 03/13/18 08:05 03/13/18 08:05 03/13/18 08:05 03/13/18 08:05 03/13/18 08:05 - Medications Medications: Current Medications Acetaminophen (Tylenol 325mg Tab) 650 mg PO Q6 PRN PRN Reason: Fever >100.4 F Albuterol (Ventolin Hfa 90 Mcg/Actuation (8 G)) 2 puff INH RQ4 PRN PRN Reason: Shortness of Breath Albuterol Sulfate (Albuterol 0.083% Inhal Renata (2.5 Mg/3 Ml) Ud) 2.5 mg INH RQID [facility] BEDS AT [facility] Last Admin: 03/13/18 07:22 Dose: 2.5 mg Alprazolam (Xanax) 0.5 mg PO TID PRN PRN Reason: Anxiety Last Admin: 03/13/18 04:09 Dose: 0.5 mg Aspirin (Aspirin) 325 mg PO DAILY [facility]S [facility]CLUDE 234 BEDS AT [facility] Last Admin: 03/13/18 08:54 Dose: 325 mg Guaifenesin (Mucinex La) 600 mg PO Q12 [facility]S [facility]CLUDE 234 BEDS AT [facility] Last Admin: 03/13/18 08:52 Dose: 600 mg Heparin Sodium (Porcine) (Heparin) 5,000 units SC Q8 [facility]S [facility]CLUDE 234 BEDS AT THE [facility] PRN Reason: Protocol Last Admin: 03/13/18 08:51 Dose: Not Given Home Med (Letrozole [Femara]) 2.5 mg PO HS [facility]S [facility]CLUDE 234 BEDS AT [facility] Last Admin: 03/12/18 21:32 Dose: 2.5 mg Home Med (Home Med) 1 unit PO DAILY COUNTS INCLUDE 234 BEDS AT [facility] Meropenem 500 mg/ Sodium (Chloride) 100 mls @ 100 mls/hr IVPB Q12@0500,1700 [facility] 234 BEDS AT [facility] Last Admin: 03/13/18 04:09 Dose: 100 mls/hr Lactobacillus Acidophilus (Bacid Acidophilus) 1 cap PO BID COUNTS [facility]CLUDE 234 BEDS AT [facility] Last Admin: 03/13/18 08:52 Dose: 1 cap Liothyronine Sodium (Cytomel) 10 mcg PO DAILY@0700 [facility]S [facility]CLUDE 234 BEDS AT [facility] Last Admin: 03/13/18 06:37 Dose: 10 mcg Nystatin (Nystatin Oral Susp) 5 ml PO QID COUNTS [facility]CLUDE 234 BEDS AT THE [facility] Last Admin: 03/13/18 08:51 Dose: 5 ml Saliva Substitute (First Magic Mouthwash) 10 ml PO QID PRN PRN Reason: Sore Throat Thyroid ([place] Thyroid) 30 mg PO DAILY@0700 COUNTS [facility]CLUDE 234 BEDS AT THE [facility] Last Admin: 03/13/18 06:37 Dose: 30 mg Assessment and Plan (1) Asthma with COPD with exacerbation Status: Chronic (2) Urinary retention Status: Chronic (3) Urinary tract infection Status: Acute
[2018-03-14] MEDS: Albuterol HFA 90 mcg/actuation (8 g) INH PRN (05:14)
[2018-03-14] MEDS: Meropenem 500 MG in Sodium Chloride 0.9% 100 ML IVPB SCH ×2 (05:15→17:12)
[2018-03-14] MEDS: THYROID 30 MG TAB PO SCH (06:43)
[2018-03-14] MEDS: Albuterol 0.083% Inhal Sol (2.5 mg/3 mL) UD INH SCH ×4 (07:15→19:09)
[2018-03-14] MEDS: guaiFENesin 600 mg ER Tab PO SCH ×2 (08:43→22:31)
[2018-03-14] MEDS: Nystatin 100,000 Units/ml Oral Susp 5 ml UD PO SCH ×5 (08:43→22:31)
[2018-03-14] MEDS: Lactobacillus Acidophilus 500 MU Cap PO SCH ×3 (08:50→22:30)
--- NOTE | 2018-03-14 10:55 | CP.PCM.PN ---
Subjective - Date & Time of Evaluation Date of Evaluation: 03/14/18 Time of Evaluation: 10:55 - Subjective Subjective: Seated in wheelchair, awaiting physical therapy. Had developed multiple bouts of diarrhea overnight. Had episodes of wheezing yesterday which she attributes to her anxiety. Adamantly refuses addition of ipratropium to her regimen. Refusing to have Advair resumed as well. Discussed use of albuterol nebulizer and spoke with nursing about use of rescue inhaler as well. Occasional expiratory wheezes present on exam this morning. Objective - Vital Signs/Intake and Output Vital Signs (last 24 hours): Temp Pulse Resp BP Pulse Ox 97.2 F L 86 20 142/77 96 03/14/18 09:05 03/14/18 09:05 03/14/18 09:05 03/14/18 09:05 03/14/18 09:05 - Medications Medications: Current Medications Acetaminophen (Tylenol 325mg Tab) 650 mg PO Q6 PRN PRN Reason: Fever >100.4 F Albuterol (Ventolin Hfa 90 Mcg/Actuation (8 G)) 2 puff INH RQ4 PRN PRN Reason: Shortness of Breath Last Admin: 03/14/18 05:14 Dose: 2 puff Albuterol Sulfate (Albuterol 0.083% Inhal Renata (2.5 Mg/3 Ml) Ud) 2.5 mg INH RQID [facility] Last Admin: 03/14/18 07:15 Dose: 2.5 mg Alprazolam (Xanax) 0.5 mg PO TID PRN PRN Reason: Anxiety Last Admin: 03/14/18 00:04 Dose: 0.5 mg Aspirin (Aspirin) 325 mg PO DAILY [facility] Last Admin: 03/14/18 08:50 Dose: 325 mg Guaifenesin (Mucinex La) 600 mg PO Q12 [facility] Last Admin: 03/14/18 08:43 Dose: 600 mg Heparin Sodium (Porcine) (Heparin) 5,000 units SC Q8 [facility] PRN Reason: Protocol Last Admin: 03/14/18 08:54 Dose: Not Given Home Med (Letrozole [Femara]) 2.5 mg PO HS [facility] Last Admin: 03/13/18 22:21 Dose: 2.5 mg Home Med (Home Med) 1 unit PO DAILY [facility] Meropenem 500 mg/ Sodium (Chloride) 100 mls @ 100 mls/hr IVPB Q12@0500,1700 [facility] Last Admin: 03/14/18 05:15 Dose: 100 mls/hr Lactobacillus Acidophilus (Bacid Acidophilus) 1 cap PO BID [facility] Last Admin: 03/14/18 08:50 Dose: 1 cap Liothyronine Sodium (Cytomel) 10 mcg PO DAILY@0700 [facility] Last Admin: 03/13/18 06:37 Dose: 10 mcg Nystatin (Nystatin Oral Susp) 5 ml PO QID [facility] Last Admin: 03/14/18 08:43 Dose: 5 ml Saliva Substitute (First Magic Mouthwash) 10 ml PO QID PRN PRN Reason: Sore Throat Thyroid ([place] Thyroid) 30 mg PO DAILY@0700 [facility] Last Admin: 03/14/18 06:43 Dose: 30 mg Assessment and Plan (1) Asthma with COPD with exacerbation Status: Chronic (2) Urinary retention Status: Chronic (3) Urinary tract infection Status: Acute
--- NOTE | 2018-03-14 18:21 | CP.PCM.PN ---
Subjective - Date & Time of Evaluation Date of Evaluation: 03/14/18 Time of Evaluation: 18:00 - Subjective Subjective: Patient seen and examined. Claimed she felt better but had diarrhea earlier. Objective - Vital Signs/Intake and Output Vital Signs (last 24 hours): Temp Pulse Resp BP Pulse Ox 97.7 F 67 20 135/80 97 03/14/18 15:55 03/14/18 16:45 03/14/18 15:55 03/14/18 15:55 03/14/18 16:45 - Medications Medications: Current Medications Acetaminophen (Tylenol 325mg Tab) 650 mg PO Q6 PRN PRN Reason: Fever >100.4 F Albuterol (Ventolin Hfa 90 Mcg/Actuation (8 G)) 2 puff INH RQ4 PRN PRN Reason: Shortness of Breath Last Admin: 03/14/18 05:14 Dose: 2 puff Albuterol Sulfate (Albuterol 0.083% Inhal Renata (2.5 Mg/3 Ml) Ud) 2.5 mg INH RQID [facility] Last Admin: 03/14/18 15:20 Dose: 2.5 mg Alprazolam (Xanax) 0.5 mg PO TID PRN PRN Reason: Anxiety Last Admin: 03/14/18 00:04 Dose: 0.5 mg Aspirin (Aspirin) 325 mg PO DAILY [facility] Last Admin: 03/14/18 08:50 Dose: 325 mg Guaifenesin (Mucinex La) 600 mg PO Q12 [facility] Last Admin: 03/14/18 08:43 Dose: 600 mg Heparin Sodium (Porcine) (Heparin) 5,000 units SC Q8 [facility] PRN Reason: Protocol Last Admin: 03/14/18 17:13 Dose: Not Given Home Med (Letrozole [Femara]) 2.5 mg PO HS [facility] Last Admin: 03/13/18 22:21 Dose: 2.5 mg Home Med (Home Med) 1 unit PO DAILY [facility] Meropenem 500 mg/ Sodium (Chloride) 100 mls @ 100 mls/hr IVPB Q12@0500,1700 [facility] Last Admin: 03/14/18 17:12 Dose: 100 mls/hr Lactobacillus Acidophilus (Bacid Acidophilus) 1 cap PO BID@0900,2100 [facility] Liothyronine Sodium (Cytomel) 10 mcg PO DAILY@0700 [facility] Last Admin: 03/13/18 06:37 Dose: 10 mcg Nystatin (Nystatin Oral Susp) 5 ml PO QID [facility] Last Admin: 03/14/18 17:13 Dose: Not Given Saliva Substitute (First Magic Mouthwash) 10 ml PO QID PRN PRN Reason: Sore Throat Thyroid ([place] Thyroid) 30 mg PO DAILY@0700 [facility] Last Admin: 03/14/18 06:43 Dose: 30 mg - Constitutional Appears: No Acute Distress - Head Exam Head Exam: ATRAUMATIC - Eye Exam Eye Exam: absent: Scleral icterus - ENT Exam ENT Exam: Mucous Membranes Moist - Neck Exam Neck Exam: absent: Meningismus - Respiratory Exam Respiratory Exam: absent: Rales, Rhonchi, Wheezes, Respiratory Distress - Cardiovascular Exam Cardiovascular Exam: REGULAR RHYTHM, +S1, +S2 - GI/Abdominal Exam GI & Abdominal Exam: Soft. absent: Tenderness - Rectal Exam Rectal Exam: Deferred - Back Exam Back Exam: absent: tenderness - Neurological Exam Neurological Exam: Alert, Oriented x3 - Psychiatric Exam Psychiatric exam: Normal Affect - Skin Skin Exam: Dry, Intact Assessment and Plan - Assessment and Plan (Free Text) Assessment: 66 yo female with history of Asthma/COPD and MS (daily BID straight catheterization for urinary retention) admitted because of UTI. Urine culture grew E Coli. ID consult suggested Meropenem. She was transferred to TCU for continuation of IV antibiotics and PT. 1. UTI secondary to catheterization cont IV Meropenem for another 4 days ID consult: Dr. Fitz Perdomo for fever 2. DANII on CKD Stage III improving with hydration 3. Multiple Sclerosis follow up with neurology as outpatient Urine Straight cath BID for urinary retention 4. COPD and Asthma with exacerbation asymptomatic and no wheezing continue Albuterol Nebulizer Dr Vanessa on pulmonary consult 5. Hypothyroidism continue home Thyroid meds 6. History of Breast CA cont Femara 7. DVT Pophylaxis SCD refuses Heparin or Lovenox
[2018-03-15] MEDS ORDERED: Albuterol 0.083% Inhal Sol (2.5 mg/3 mL) UD INH ONE (00:35)
[2018-03-15] MEDS: THYROID 30 MG TAB PO SCH (06:53)
[2018-03-15] MEDS: Albuterol 0.083% Inhal Sol (2.5 mg/3 mL) UD INH SCH ×4 (07:08→19:52)
[2018-03-15] MEDS: Nystatin 100,000 Units/ml Oral Susp 5 ml UD PO SCH ×5 (09:00→21:29)
[2018-03-15] MEDS: guaiFENesin 600 mg ER Tab PO SCH ×2 (09:36→21:29)
[2018-03-15] MEDS: Lactobacillus Acidophilus 500 MU Cap PO SCH ×2 (09:36→21:29)
[2018-03-16] MEDS: Albuterol 0.042% Inhal Sol (1.25 mg/3 mL) UD INH PRN ×3 (00:07→20:40)
[2018-03-16] MEDS: Albuterol HFA 90 mcg/actuation (8 g) INH PRN (05:54)
[2018-03-16] MEDS: THYROID 30 MG TAB PO SCH (05:59)
[2018-03-16] MEDS: guaiFENesin 600 mg ER Tab PO SCH ×2 (08:46→20:38)
[2018-03-16] MEDS: Lactobacillus Acidophilus 500 MU Cap PO SCH ×2 (08:51→20:37)
[2018-03-16] MEDS: Nystatin 100,000 Units/ml Oral Susp 5 ml UD PO SCH ×4 (08:53→21:35)
--- NOTE | 2018-03-16 10:54 | CP.PCM.PN ---
Subjective - Date & Time of Evaluation Date of Evaluation: 03/16/18 Time of Evaluation: 10:54 - Subjective Subjective: The patient has done well with HERMES, improved gait/strength. Has had some issues with bowel movements (loose), but this appears improved as well. Occasional cough with minimal mucoid sputum at times. Occasional wheeze/CROSS, responds to albuterol. Becoming anxious to return home and resume ADL's as able. UTI has been cleared and BID straight cath will continue. Objective - Vital Signs/Intake and Output Vital Signs (last 24 hours): Temp Pulse Resp BP Pulse Ox 98.2 F 88 20 135/77 90 L 03/15/18 21:20 03/15/18 21:20 03/15/18 21:20 03/15/18 21:20 03/15/18 21:20 - Medications Medications: Current Medications Acetaminophen (Tylenol 325mg Tab) 650 mg PO Q6 PRN PRN Reason: Fever >100.4 F Albuterol (Ventolin Hfa 90 Mcg/Actuation (8 G)) 2 puff INH RQ4 PRN PRN Reason: Shortness of Breath Last Admin: 03/16/18 05:54 Dose: 2 puff Albuterol Sulfate (Albuterol 0.042% Inhal Renata (1.25mg/3ml) Ud) 1.25 mg INH RQ6 PRN PRN Reason: Shortness of Breath Last Admin: 03/16/18 00:07 Dose: 1.25 mg Alprazolam (Xanax) 0.5 mg PO TID PRN PRN Reason: Anxiety Last Admin: 03/16/18 00:05 Dose: 0.5 mg Aspirin (Aspirin) 325 mg PO DAILY [facility] Last Admin: 03/16/18 08:47 Dose: 325 mg Guaifenesin (Mucinex La) 600 mg PO Q12 [facility] Last Admin: 03/16/18 08:46 Dose: 600 mg Heparin Sodium (Porcine) (Heparin) 5,000 units SC Q8 [facility] PRN Reason: Protocol Last Admin: 03/16/18 08:52 Dose: Not Given Home Med (Letrozole [Femara]) 2.5 mg PO HS [facility] Last Admin: 03/15/18 21:29 Dose: 2.5 mg Lactobacillus Acidophilus (Bacid Acidophilus) 1 cap PO BID@0900,2100 [facility] Last Admin: 03/16/18 08:51 Dose: 1 cap Liothyronine Sodium (Cytomel) 10 mcg PO DAILY@0700 [facility] Last Admin: 03/16/18 05:59 Dose: 10 mcg Loratadine (Claritin) 10 mg PO DAILY [facility] Nystatin (Nystatin Oral Susp) 5 ml PO QID [facility] Last Admin: 03/16/18 08:53 Dose: Not Given Ondansetron HCl (Zofran Odt) 4 mg PO Q8H PRN PRN Reason: Nausea/Vomiting Saliva Substitute (First Magic Mouthwash) 10 ml PO QID PRN PRN Reason: Sore Throat Last Admin: 03/15/18 09:37 Dose: 10 ml Thyroid ([place] Thyroid) 30 mg PO DAILY@0700 [facility] Last Admin: 03/16/18 05:59 Dose: 30 mg Assessment and Plan (1) Asthma with COPD with exacerbation Status: Resolved (2) Urinary retention Status: Chronic (3) Urinary tract infection Status: Resolved
[2018-03-16 11:23] LABS: HEMOGLOBIN 13.6 g/dL (12.0-16.0); MEAN CELL VOLUME 81.7 fl (81.0-99.0); MEAN CORPUSCULAR HEMOGLOBIN 26.6 pg (27.0-31.0); MEAN CORPUSCULAR HGB CONC 32.6 g/dL (33.0-37.0); RBC 5.11 Mil/uL (3.80-5.20); RED CELL DISTRIBUTION WIDTH 15.4 % (11.5-14.5); WHITE BLOOD COUNT 6.8 K/uL (4.8-10.8)
[2018-03-16 11:52] LABS: ALB/GLOB RATIO 1.2 (1.0-2.1); CALCIUM 9.3 mg/dL (8.4-10.2)
--- NOTE | 2018-03-16 13:12 | CP.PCM.PN ---
Subjective - Date & Time of Evaluation Date of Evaluation: 03/16/18 Time of Evaluation: 10:00 - Subjective Subjective: Patient was seen and examined. Complains of some mild nausea and reflux symptoms but otherwise states she feels well. Diarrhea has improved. Objective - Vital Signs/Intake and Output Vital Signs (last 24 hours): Temp Pulse Resp BP Pulse Ox 98.2 F 88 20 135/77 90 L 03/15/18 21:20 03/15/18 21:20 03/15/18 21:20 03/15/18 21:20 03/15/18 21:20 - Medications Medications: Current Medications Acetaminophen (Tylenol 325mg Tab) 650 mg PO Q6 PRN PRN Reason: Fever >100.4 F Albuterol (Ventolin Hfa 90 Mcg/Actuation (8 G)) 2 puff INH RQ4 PRN PRN Reason: Shortness of Breath Last Admin: 03/16/18 05:54 Dose: 2 puff Albuterol Sulfate (Albuterol 0.042% Inhal Renata (1.25mg/3ml) Ud) 1.25 mg INH RQ6 PRN PRN Reason: Shortness of Breath Last Admin: 03/16/18 09:30 Dose: 1.25 mg Alprazolam (Xanax) 0.5 mg PO TID PRN PRN Reason: Anxiety Last Admin: 03/16/18 00:05 Dose: 0.5 mg Aspirin (Aspirin) 325 mg PO DAILY [facility] Last Admin: 03/16/18 08:47 Dose: 325 mg Guaifenesin (Mucinex La) 600 mg PO Q12 [facility] Last Admin: 03/16/18 08:46 Dose: 600 mg Heparin Sodium (Porcine) (Heparin) 5,000 units SC Q8 [facility] PRN Reason: Protocol Last Admin: 03/16/18 08:52 Dose: Not Given Home Med (Letrozole [Femara]) 2.5 mg PO HS [facility] Last Admin: 03/15/18 21:29 Dose: 2.5 mg Lactobacillus Acidophilus (Bacid Acidophilus) 1 cap PO BID@0900,2100 [facility] Last Admin: 03/16/18 08:51 Dose: 1 cap Liothyronine Sodium (Cytomel) 10 mcg PO DAILY@0700 [facility] Last Admin: 03/16/18 05:59 Dose: 10 mcg Loratadine (Claritin) 10 mg PO DAILY [facility] Last Admin: 03/16/18 12:19 Dose: 10 mg Nystatin (Nystatin Oral Susp) 5 ml PO QID [facility] Last Admin: 03/16/18 12:20 Dose: Not Given Ondansetron HCl (Zofran Odt) 4 mg PO Q8H PRN PRN Reason: Nausea/Vomiting Last Admin: 03/16/18 12:22 Dose: 4 mg Saliva Substitute (First Magic Mouthwash) 10 ml PO QID PRN PRN Reason: Sore Throat Last Admin: 03/15/18 09:37 Dose: 10 ml Thyroid ([place] Thyroid) 30 mg PO DAILY@0700 [facility] Last Admin: 03/16/18 05:59 Dose: 30 mg - Labs Labs: 03/16/18 10:50 03/16/18 10:50 - Additional Findings Additional findings: Physical exam: Constitutional- cooperative, awake, alert Head- NCAT, PERRL Eye- PERRL, EOMI ENT- normal exam, MMM. Neck- normal inspection, supple, no JVD Respiratory- CTAB, no wheezes rales rhonchi Cardiovascular- RRR, +S1, +S2 no MRG GI/Abdominal- normal bowel sounds, soft, no mass, no hsm Skin- warm, dry Extremities Exam- normal capillary refill, normal inspection Neurological Exam- alert, awake, oriented Psych- normal mood, normal affect Assessment and Plan - Assessment and Plan (Free Text) Plan: 72 yo female with history of Asthma/COPD and MS (daily BID straight catheterization for urinary retention) admitted because of UTI. Urine culture grew E Coli. ID consult suggested Meropenem. She was transferred to TCU for continuation of IV antibiotics and PT. 1. UTI secondary to catheterization, resolved Recieved Meropenem which was discontinued 03/15 as per ID. ID consult: Dr. Byrnes Now asymptomatic 2. DANII on CKD Stage III, improved improved with rehydration 3. Multiple Sclerosis follow up with neurology as outpatient Urine Straight cath BID for urinary retention 4. Diarrhea, resolved Possibly due to antibiotics improved with bacid 5. COPD and Asthma with exacerbation asymptomatic and no wheezing continue Albuterol Nebulizer Dr Vanessa on pulmonary consult 6. Hypothyroidism continue home Thyroid meds 7. History of Breast CA cont Femara 8. DVT Pophylaxis SCD refuses Heparin or Lovenox
--- NOTE | 2018-03-16 17:29 | CP.PCM.CON ---
History of Present Illness - History of Present Illness History of Present Illness: Podiatry Consult note: Dr. Mon 72 year old female patient with PMHx of MS, Asthma, Breast CA was seen and evaluated at bedside for elongated nails. Patient reports that her nails cause her pain every now and then. Denies of any other pedal complains at this time. Denies of having any recent F/N/V/C/SOB/CP/headache/diarrhea. No other pedal complains at this time. PMHx: Asthma, MS, Breast Ca PSHx: Knee surgery in past Allergies: Codeine, fish, pentazocine, ofloxacin Social Hx: Lives with family, denies EtOH or tobacco Review of Systems - Constitutional Constitutional: As Per HPI Past Patient History - Infectious Disease Hx of Infectious Diseases: None - Tetanus Immunizations Tetanus Immunization: Unknown - Past Medical History & Family History Past Medical History?: Yes Past Family History: Reviewed and not pertinent - Past Social History Smoking Status: Former Smoker Chewing Tobacco Use: No Cigar Use: No Alcohol: Occasional Drugs: Denies Home Situation {Lives}: With Family - CARDIAC Hx Cardiac Disorders: No - PULMONARY Hx Asthma: Yes Hx Chronic Obstructive Pulmonary Disease (COPD): Yes - NEUROLOGICAL Hx Neurological Disorder: Yes Hx Multiple Sclerosis: Yes - HEENT Hx HEENT Problems: Yes Hx Cataracts: Yes Hx Glaucoma: Yes - RENAL Hx Chronic Kidney Disease: No - ENDOCRINE/METABOLIC Hx Hypothyroidism: Yes - HEMATOLOGICAL/ONCOLOGICAL Hx AIDS: No Hx Blood Transfusions: Yes Hx Cancer: Yes (rt breast ,cervical uterine) Hx Human Immunodeficiency Virus (HIV): No Other/Comment: radiation - INTEGUMENTARY Hx Dermatological Problems: No - MUSCULOSKELETAL/RHEUMATOLOGICAL Hx Musculoskeletal Disorders: Yes Hx Falls: Yes - GASTROINTESTINAL Hx Gastrointestinal Disorders: No - GENITOURINARY/GYNECOLOGICAL Hx Genitourinary Disorders: Yes - PSYCHIATRIC Hx Psychophysiologic Disorder: Yes Hx Anxiety: Yes Hx Substance Use: No - SURGICAL HISTORY Hx Surgeries: Yes Hx Breast Biopsy: Yes Hx Cataract Extraction: Yes Hx Hysterectomy: Yes Hx Joint Replacement: Yes (Right knee) Other/Comment: Hx Right breast Lumpectomy - ANESTHESIA Hx Anesthesia: Yes Hx Anesthesia Reactions: No Meds Allergies/Adverse Reactions: Allergies Allergy/AdvReac Type Severity Reaction Status Date / Time ciprofibrate Allergy unknown Verified 03/09/18 13:59 fluticasone Allergy ANAPHYLAXIS Verified 03/09/18 14:01 [From Advair Diskus] ofloxacin [From Floxin] Allergy unknown Verified 03/09/18 14:01 salmeterol Allergy DIZZINESS Verified 03/09/18 14:01 [From Advair Diskus] shellfish derived Allergy ANAPHYLAXIS Verified 03/09/18 14:01 - Medications Medications: Current Medications Acetaminophen (Tylenol 325mg Tab) 650 mg PO Q6 PRN PRN Reason: Fever >100.4 F Albuterol (Ventolin Hfa 90 Mcg/Actuation (8 G)) 2 puff INH RQ4 PRN PRN Reason: Shortness of Breath Last Admin: 03/16/18 05:54 Dose: 2 puff Albuterol Sulfate (Albuterol 0.042% Inhal Renata (1.25mg/3ml) Ud) 1.25 mg INH RQ6 PRN PRN Reason: Shortness of Breath Last Admin: 03/16/18 09:30 Dose: 1.25 mg Alprazolam (Xanax) 0.5 mg PO TID PRN PRN Reason: Anxiety Last Admin: 03/16/18 00:05 Dose: 0.5 mg Aspirin (Aspirin) 325 mg PO DAILY [facility] Last Admin: 03/16/18 08:47 Dose: 325 mg Guaifenesin (Mucinex La) 600 mg PO Q12 [facility] Last Admin: 03/16/18 08:46 Dose: 600 mg Heparin Sodium (Porcine) (Heparin) 5,000 units SC Q8 [facility] PRN Reason: Protocol Last Admin: 03/16/18 17:12 Dose: Not Given Home Med (Letrozole [Femara]) 2.5 mg PO HS [facility] Last Admin: 03/15/18 21:29 Dose: 2.5 mg Lactobacillus Acidophilus (Bacid Acidophilus) 1 cap PO BID@0900,2100 [facility] Last Admin: 03/16/18 08:51 Dose: 1 cap Liothyronine Sodium (Cytomel) 10 mcg PO DAILY@0700 [facility] Last Admin: 03/16/18 05:59 Dose: 10 mcg Loratadine (Claritin) 10 mg PO DAILY [facility] Last Admin: 03/16/18 12:19 Dose: 10 mg Nystatin (Nystatin Oral Susp) 5 ml PO QID [facility] Last Admin: 03/16/18 17:12 Dose: Not Given Ondansetron HCl (Zofran Odt) 4 mg PO Q8H PRN PRN Reason: Nausea/Vomiting Last Admin: 03/16/18 12:22 Dose: 4 mg Saliva Substitute (First Magic Mouthwash) 10 ml PO QID PRN PRN Reason: Sore Throat Last Admin: 03/15/18 09:37 Dose: 10 ml Thyroid ([place] Thyroid) 30 mg PO DAILY@0700 [facility] Last Admin: 03/16/18 05:59 Dose: 30 mg Physical Exam - Constitutional Appears: Well, Non-toxic, No Acute Distress - Extremities Exam Additional comments: Bilateral LE focused exam: VASC: DP/PT pulses are palpable 2/4 B/L. Cap refill time: < 3 seconds to all digits. Skin temperature warm to cool from proximal to distal. no pitting or non -pitting edema noted DERM: no onen lesions, no inter digital maceration, nails are slightly elongated and dystrophic and discolored, no clinical suspicion of active infection NEURO: Epicritic and protective sensation intact ORTHO: no pain during AROM and PROM at the AJ or MTPJ - Neurological Exam Neurological exam: Alert, Oriented x3 - Psychiatric Exam Psychiatric exam: Normal Affect, Normal Mood Results - Vital Signs Recent Vital Signs: Last Vital Signs Temp 97.9 F 03/16/18 15:47 Pulse 86 03/16/18 15:47 Resp 20 03/16/18 15:47 BP 134/70 03/16/18 15:47 Pulse Ox 95 03/16/18 15:47 - Labs Result Diagrams: 03/16/18 10:50 03/16/18 10:50 Labs: Laboratory Results - last 24 hr 03/16/18 03/16/18 10:50 10:50 WBC 6.8 D RBC 5.11 Hgb 13.6 Hct 41.8 MCV 81.7 MCH 26.6 L MCHC 32.6 L RDW 15.4 H Plt Count 458 H D Sodium 142 Potassium 4.2 Chloride 101 Carbon Dioxide 26 Anion Gap 19 BUN 30 H Creatinine 1.5 H Est GFR ( Amer) 41 Est GFR (Non-Af Amer) 34 Random Glucose 123 H Calcium 9.3 Total Bilirubin 0.6 AST 32 ALT 52 D Alkaline Phosphatase 82 Total Protein 7.4 Albumin 4.0 Globulin 3.3 Albumin/Globulin Ratio 1.2 TSH 3rd Generation 0.95 Assessment & Plan - Assessment and Plan (Free Text) Assessment: 72 year old female patient was seen and evaluated for painful elongated nails Plan: Patient seen and evaluated at bedside Discussed with attending Dr. Mon Aseptic debridement of nails using sterile clippers Tolerated the procedure well without any reported incidents Thank you for the podiatry consult and allowing to take part in patient care Please re-consult if needed - Date & Time Date: 03/16/18 Time: 17:31
[2018-03-17] MEDS: Albuterol 0.042% Inhal Sol (1.25 mg/3 mL) UD INH PRN ×2 (05:58→19:12)
[2018-03-17] MEDS: THYROID 30 MG TAB PO SCH (06:11)
[2018-03-17] MEDS: guaiFENesin 600 mg ER Tab PO SCH (09:10)
[2018-03-17] MEDS: Nystatin 100,000 Units/ml Oral Susp 5 ml UD PO SCH ×3 (09:11→17:29)
[2018-03-17] MEDS: Lactobacillus Acidophilus 500 MU Cap PO SCH (09:13)
--- NOTE | 2018-03-17 10:56 | CP.PCM.PN ---
Subjective - Date & Time of Evaluation Date of Evaluation: 03/17/18 Time of Evaluation: 10:54 - Subjective Subjective: PLAN FOR DISCHARGE TO HOME TODAY. HAS DONE WELL IN THERAPY. STRONGER, MORE ABLE TO PERFORM ADL'S. BREATHING IS MORE COMFORTABLE, AIR ENTRY IS IMPROVED. RARE EXPIRATORY WHEEZE HEARD IN THE RIGHT LOWER LOBE AREA. ALL MEDICATIONS WILL REMAIN THE SAME POST-DISCHARGE. FOLLOW UP WITH ME NEXT WEEK. Objective - Vital Signs/Intake and Output Vital Signs (last 24 hours): Temp Pulse Resp BP Pulse Ox 97.9 F 88 20 145/70 99 03/16/18 19:39 03/16/18 19:39 03/16/18 19:39 03/16/18 19:39 03/16/18 19:39 Intake and Output: 03/16/18 03/17/18 23:59 11:59 Output Total 500 Balance -500 - Medications Medications: Current Medications Acetaminophen (Tylenol 325mg Tab) 650 mg PO Q6 PRN PRN Reason: Fever >100.4 F Albuterol (Ventolin Hfa 90 Mcg/Actuation (8 G)) 2 puff INH RQ4 PRN PRN Reason: Shortness of Breath Last Admin: 03/16/18 05:54 Dose: 2 puff Albuterol Sulfate (Albuterol 0.042% Inhal Renata (1.25mg/3ml) Ud) 1.25 mg INH RQ6 PRN PRN Reason: Shortness of Breath Last Admin: 03/17/18 05:58 Dose: 1.25 mg Alprazolam (Xanax) 0.5 mg PO TID PRN PRN Reason: Anxiety Last Admin: 03/17/18 00:17 Dose: 0.5 mg Aspirin (Aspirin) 325 mg PO DAILY [facility] Last Admin: 03/17/18 09:11 Dose: 325 mg Guaifenesin (Mucinex La) 600 mg PO Q12 [facility] Last Admin: 03/17/18 09:10 Dose: 600 mg Heparin Sodium (Porcine) (Heparin) 5,000 units SC Q8 [facility] PRN Reason: Protocol Last Admin: 03/17/18 09:12 Dose: Not Given Home Med (Letrozole [Femara]) 2.5 mg PO HS [facility] Last Admin: 03/16/18 21:35 Dose: 2.5 mg Lactobacillus Acidophilus (Bacid Acidophilus) 1 cap PO BID@0900,2100 [facility] Last Admin: 03/17/18 09:13 Dose: 1 cap Liothyronine Sodium (Cytomel) 10 mcg PO DAILY@0700 [facility] Last Admin: 03/17/18 06:11 Dose: 10 mcg Loratadine (Claritin) 10 mg PO DAILY [facility] Last Admin: 03/17/18 09:10 Dose: 10 mg Nystatin (Nystatin Oral Susp) 5 ml PO QID [facility] Last Admin: 03/17/18 09:11 Dose: Not Given Ondansetron HCl (Zofran Odt) 4 mg PO Q8H PRN PRN Reason: Nausea/Vomiting Last Admin: 03/16/18 12:22 Dose: 4 mg Saliva Substitute (First Magic Mouthwash) 10 ml PO QID PRN PRN Reason: Sore Throat Last Admin: 03/15/18 09:37 Dose: 10 ml Thyroid ([place] Thyroid) 30 mg PO DAILY@0700 [facility] Last Admin: 03/17/18 06:11 Dose: 30 mg - Labs Labs: 03/16/18 10:50 03/16/18 10:50 Assessment and Plan (1) Asthma with COPD with exacerbation Status: Resolved (2) Urinary retention Status: Chronic (3) Urinary tract infection Status: Resolved
--- NOTE | 2018-03-17 12:52 | CP.PCM.DIS ---
Provider - Provider Date of Admission: 03/09/18 14:01 Attending physician: April Damon MD Primary care physician: Dr. Vanessa Consults: Dr. Vanessa- Pulmonary Dr. Garcia- physiatry Dr. Mon- Podiatry Dr. Byrnes- AME Time Spent in preparation of Discharge (in minutes): 25 Hospital Course - Lab Results Lab Results: Micro Results 03/10/18 12:25 Urine,Catheterized Urine Culture - Final No Growth (<1,000 CFU/ML) Most Recent Lab Values WBC 6.8 K/uL (4.8-10.8) D 03/16/18 10:50 RBC 5.11 Mil/uL (3.80-5.20) 03/16/18 10:50 Hgb 13.6 g/dL (12.0-16.0) 03/16/18 10:50 Hct 41.8 % (34.0-47.0) 03/16/18 10:50 MCV 81.7 fl (81.0-99.0) 03/16/18 10:50 MCH 26.6 pg (27.0-31.0) L 03/16/18 10:50 MCHC 32.6 g/dL (33.0-37.0) L 03/16/18 10:50 RDW 15.4 % (11.5-14.5) H 03/16/18 10:50 Plt Count 458 K/uL (130-400) H D 03/16/18 10:50 Sodium 142 mmol/l (132-148) 03/16/18 10:50 Potassium 4.2 MMOL/L (3.6-5.0) 03/16/18 10:50 Chloride 101 mmol/L (98-107) 03/16/18 10:50 Carbon Dioxide 26 mmol/L (22-30) 03/16/18 10:50 Anion Gap 19 (10-20) 03/16/18 10:50 BUN 30 mg/dl (7-17) H 03/16/18 10:50 Creatinine 1.5 mg/dl (0.7-1.2) H 03/16/18 10:50 Est GFR ( Amer) 41 03/16/18 10:50 Est GFR (Non-Af Amer) 34 03/16/18 10:50 Random Glucose 123 mg/dL (65-105) H 03/16/18 10:50 Calcium 9.3 mg/dL (8.4-10.2) 03/16/18 10:50 Total Bilirubin 0.6 mg/dl (0.2-1.3) 03/16/18 10:50 AST 32 U/L (14-36) 03/16/18 10:50 ALT 52 U/L (9-52) D 03/16/18 10:50 Alkaline Phosphatase 82 U/L (38-126) 03/16/18 10:50 Total Protein 7.4 G/DL (6.3-8.2) 03/16/18 10:50 Albumin 4.0 g/dL (3.5-5.0) 03/16/18 10:50 Globulin 3.3 gm/dL (2.2-3.9) 03/16/18 10:50 Albumin/Globulin Ratio 1.2 (1.0-2.1) 03/16/18 10:50 TSH 3rd Generation 0.95 mIU/ML (0.46-4.68) 03/16/18 10:50 - Hospital Course Hospital Course: This is a 72 yo female with history of Asthma/COPD and MS (daily BID straight catheterization for urinary retention) admitted because of UTI. Urine culture grew E Coli. ID consult suggested Meropenem. She was transferred to TCU for continuation of IV antibiotics and PT. During her uncomplicated stay, she completed course of antibiotics and UTI is now resolved and she is asymptomatic. 1. UTI secondary to catheterization, resolved Recieved Meropenem which was discontinued 03/15 as per ID. ID consult: Dr. Byrnes Now asymptomatic 2. DANII on CKD Stage III, improved improved with rehydration 3. Multiple Sclerosis follow up with neurology as outpatient Urine Straight cath BID for urinary retention 4. Diarrhea, resolved Possibly due to antibiotics improved with bacid Continue bacid for 5 more days outpatient 5. COPD and Asthma with exacerbation Mild right lower basilar wheezing but better than previous continue Albuterol Nebulizer Dr Vanessa on pulmonary consult 6. Hypothyroidism continue home Thyroid meds 7. History of Breast CA cont Femara 8. DVT Pophylaxis SCD refused Heparin or Lovenox Discharge Exam - Head Exam Head Exam: ATRAUMATIC - Additional Findings Additional findings: Physical exam: Constitutional- cooperative, awake, alert Head- NCAT, PERRL Eye- PERRL, EOMI ENT- normal exam, MMM. Neck- normal inspection, supple, no JVD Respiratory- CTAB, scant wheezing right base, no rales, no rhonchi Cardiovascular- RRR, +S1, +S2 no MRG GI/Abdominal- normal bowel sounds, soft, no mass, no hsm Skin- warm, dry Extremities Exam- normal capillary refill, normal inspection Neurological Exam- alert, awake, oriented Psych- normal mood, normal affect Discharge Plan - Discharge Medications Prescriptions: Lactobacillus Acidophilus [Bacid Acidophilus] 1 cap PO BID@0900,2100 5 Days #10 cap Mag&Al/Simet/Diphen/Lido [First Magic Mouthwash] 10 ml PO QID PRN #1 bottle PRN Reason: Sore Throat Nystatin [Nystatin Oral Susp] 5 ml PO QID #1 bottle Ondansetron ODT [Zofran ODT] 4 mg PO Q8H PRN #10 odt PRN Reason: Nausea/Vomiting - Follow Up Plan Condition: GOOD Disposition: HOME/ ROUTINE
[2018-03-17 16:35] VITALS: BP 141/63; PULSE 87; TEMP 97.7; O2SAT 96
== END 2018-03-17 20:10 | disposition home or self-care (01) | DRG 690 ==
LOC: H.TCU 14:01
PROVIDERS: ADMIT Internal Medicine; ATTEND Internal Medicine
PROC: 3E03329 Introduction of Other Anti-infective into Peripheral Vein, Percutaneous Approach (ICD-10-PCS; principal; 2018-03-09)
PROC: F07Z9FZ Gait Training/Functional Ambulation Treatment using Assistive, Adaptive, Supportive or Protective Equipment (ICD-10-PCS; 2018-03-09)
PROC: F08Z4FZ Home Management Treatment using Assistive, Adaptive, Supportive or Protective Equipment (ICD-10-PCS; 2018-03-09)
PROC: 3E0F73Z Introduction of Anti-inflammatory into Respiratory Tract, Via Natural or Artificial Opening (ICD-10-PCS; 2018-03-09)
PROC: F07M6FZ Therapeutic Exercise Treatment of Musculoskeletal System - Whole Body using Assistive, Adaptive, Supportive or Protective Equipment (ICD-10-PCS; 2018-03-10)
PROC: 0HBRXZZ Excision of Toe Nail, External Approach (ICD-10-PCS; 2018-03-16)
PROC: 0HBRXZZ Excision of Toe Nail, External Approach (ICD-10-PCS; 2018-03-16)
PROC: 0HBRXZZ Excision of Toe Nail, External Approach (ICD-10-PCS; 2018-03-16)
PROC: 0HBRXZZ Excision of Toe Nail, External Approach (ICD-10-PCS; 2018-03-16)
PROC: 0HBRXZZ Excision of Toe Nail, External Approach (ICD-10-PCS; 2018-03-16)
PROC: 0HBRXZZ Excision of Toe Nail, External Approach (ICD-10-PCS; 2018-03-16)
PROC: 0HBRXZZ Excision of Toe Nail, External Approach (ICD-10-PCS; 2018-03-16)
PROC: 0HBRXZZ Excision of Toe Nail, External Approach (ICD-10-PCS; 2018-03-16)
PROC: 0HBRXZZ Excision of Toe Nail, External Approach (ICD-10-PCS; 2018-03-16)
PROC: 0HBRXZZ Excision of Toe Nail, External Approach (ICD-10-PCS; 2018-03-16)
DX: N39.0 Urinary tract infection, site not specified (principal); N17.9 Acute kidney failure, unspecified; J45.901 Unspecified asthma with (acute) exacerbation; J44.1 Chronic obstructive pulmonary disease with (acute) exacerbation; N18.3 Chronic kidney disease, stage 3 (moderate); R33.8 Other retention of urine; L60.8 Other nail disorders; E03.9 Hypothyroidism, unspecified; G35 Multiple sclerosis; F41.9 Anxiety disorder, unspecified; H40.9 Unspecified glaucoma; Z96.651 Presence of right artificial knee joint; Z85.3 Personal history of malignant neoplasm of breast; Z87.891 Personal history of nicotine dependence; Z88.1 Allergy status to other antibiotic agents; Z91.013 Allergy to seafood

== ENCOUNTER 2018-05-15 14:40 | Inpatient (IN) | payer MEDICARE ==
[2018-05-15 14:41] VITALS: BMI 25.7
[2018-05-15] MEDS ORDERED: Sodium Chloride 0.9% 1,000 ML IV STA (15:12)
--- NOTE | 2018-05-15 15:28 | ED PDOC ---
HPI:Nausea, Vomiting, Diarrhea Chief Complaint (Provider): N/V/F w/ weakness and fever History Per: Patient, Family History/Exam Limitations: no limitations Onset/Duration Of Symptoms: Days Current Symptoms Are (Timing): Still Present Have you had recent travel within the past 21 days to any of the following countries: [place], [place], [place] or [place]?: No Severity: Moderate Pain Scale Rating Of: 4 Location Of Discomfort (Image): 1 - Stomach Pain Quality Of Discomfort: "Pain" Associated Symptoms: Fever, Chills, Nausea, Vomiting, Diarrhea, Loss Of Appetite , Urinary Symptoms Exacerbating Factors: None Alleviating Factors: None Last Bowel Movement: Today Additional History Per: Patient, Family Additional Complaint(s): 72F w/ PMH of Multiple sclerosis, urinary retention, COPD, asthma, breast cancer seen complaining of multiple days of N/V/F/C/D and increased generalized weakness. Patient also states that she fell while trying to transition to her wheelchair. Patient states that she landed on her right hip but denies any acute pain in the area at this time <Demetrius Rand - Last Filed: 05/15/18 17:36> <Keiry Norwood - Last Filed: 05/16/18 00:02> Time Seen by Provider: 05/15/18 14:49 Chief Complaint (Nursing): Weakness/Neurological Deficit Supervising Attending Note - Supervising Attending Note The Documented history was done by the: Physician Patient Financial Counselor, Attending Physician The documented physical exam was done by the: Physician Patient Financial Counselor, Attending Physician - Attestation: I have personally seen and examined this patient.: Yes I have fully participated in the care of the patient.: Yes I have reviewed all pertinent clinical information, including history, physical exam and plan: Yes <Keiry Norwood - Last Filed: 05/16/18 00:02> Past Medical History Vital Signs: Last Vital Signs Temp 100.2 F H 05/15/18 14:45 Pulse 112 H 05/15/18 14:45 Resp 18 05/15/18 14:45 BP 124/70 05/15/18 14:45 Pulse Ox 91 L 05/15/18 14:45 - Medical History PMH: Anxiety, Asthma, Bronchitis, COPD, Hypothyroidism, Malignancy (breast/ cervical, in remission for both), Multiple Sclerosis, Pancreatitis Denies: HIV, Chronic Kidney Disease - Family History Family History: States: Unknown Family Hx <Keyona,Mark - Last Filed: 05/15/18 17:36> Reviewed: Historical Data, Nursing Documentation, Vital Signs Vital Signs: Last Vital Signs Temp 100.2 F H 05/15/18 14:45 Pulse 112 H 05/15/18 14:45 Resp 18 05/15/18 14:45 BP 124/70 05/15/18 14:45 Pulse Ox 91 L 05/15/18 15:34 <Keiry Norwood - Last Filed: 05/16/18 00:02> - Home Medications Home Medications: Ambulatory Orders Medication Instructions Recorded Liothyronine Sodium [Cytomel] 5 mcg PO DAILY 05/11/16 Alprazolam [Xanax] 0.5 mg PO TID PRN 03/06/18 Letrozole [Femara] 2.5 mg PO DAILY 03/06/18 Acetaminophen [Tylenol 325mg tab] 650 mg PO Q6 PRN tab 03/09/18 Thyroid [[place] Thyroid] 30 mg PO DAILY@0800 tab 03/09/18 Albuterol 0.042% [Albuterol 0.042% 1.25 mg INH RQ6 PRN neb 03/17/18 Inhal Renata (1.25mg/3ml) UD] Aspirin [Aspirin EC] 325 mg PO DAILY 03/17/18 Lactobacillus Acidophilus [Bacid 1 cap PO BID@0900,2100 5 Days #10 03/17/18 Acidophilus] cap Mag&Al/Simet/Diphen/Lido [First 10 ml PO QID PRN #1 bottle 03/17/18 Magic Mouthwash] Nystatin [Nystatin Oral Susp] 5 ml PO QID #1 bottle 03/17/18 Ondansetron ODT [Zofran ODT] 4 mg PO Q8H PRN #10 odt 03/17/18 - Allergies Allergies/Adverse Reactions: Allergies Allergy/AdvReac Type Severity Reaction Status Date / Time ciprofibrate Allergy unknown Verified 05/15/18 14:43 fluticasone Allergy ANAPHYLAXIS Verified 05/15/18 14:43 [From Advair Diskus] ofloxacin [From Floxin] Allergy unknown Verified 05/15/18 14:43 salmeterol Allergy DIZZINESS Verified 05/15/18 14:43 [From Advair Diskus] shellfish derived Allergy ANAPHYLAXIS Verified 05/15/18 14:43 Review of Systems ROS Statement: Except As Marked, All Systems Reviewed And Found Negative (and as per HPI) Constitutional: Positive for: Fever, Chills, Weakness, Malaise Gastrointestinal: Positive for: Nausea, Vomiting, Diarrhea Neurological: Positive for: Weakness, Incoordination, Dizziness <Keiry Norwood - Last Filed: 05/16/18 00:02> Physical Exam - Reviewed Vital Signs Reviewed: Yes - Physical Exam Appears: Positive for: No Acute Distress, Uncomfortable Head Exam: Positive for: ATRAUMATIC, NORMOCEPHALIC Skin: Positive for: Normal Color, Warm, Diaphoresis Eye Exam: Positive for: Normal appearance, EOMI, PERRL ENT: Positive for: Normal ENT Inspection. Negative for: Sinus Pain/Drainage Neck: Positive for: Normal, Painless ROM, Supple Cardiovascular/Chest: Positive for: Chest Non Tender, Tachycardia. Negative for : JVD Respiratory: Positive for: Normal Breath Sounds. Negative for: Wheezing, Respiratory Distress Gastrointestinal/Abdominal: Positive for: Bowel Sounds. Negative for: Tenderness, Distended, Guarding Rectal: Positive for: Deferred Extremity: Positive for: Normal ROM, Capillary Refill. Negative for: Pedal Edema Neurologic/Psych: Positive for: Alert, Oriented <Demetrius Rand - Last Filed: 05/15/18 17:36> - Laboratory Results Result Diagrams: 05/15/18 15:30 05/15/18 15:30 - ECG O2 Sat by Pulse Oximetry: 91 - Radiology X-Ray: Read By Radiologist X-Ray Interpretation: No Acute Disease <Demetrius Rand - Last Filed: 05/15/18 17:36> - Laboratory Results Result Diagrams: 05/15/18 15:30 05/15/18 15:30 - Progress ED Course And Treament: Accession No. : [id number] Patient Name / ID : JOSLYN LASTI / [id number] Exam Date : 05/15/2018 15:01:58 ( Approved ) Study Comment : Sex / Age : F / 72Y Creator : sari huber Dictator : Diogo Jj MD Identity Management Developer : Scheduling Analyst : Diogo Jj MD Approver2 : Report Date : 05/15/2018 15:48:51 My Comment : HISTORY: sepsis COMPARISON: 03/09/2018 FINDINGS: LUNGS: No active pulmonary disease. PLEURA: No significant pleural effusion identified, no pneumothorax apparent. CARDIOVASCULAR: Normal. OSSEOUS STRUCTURES: No significant abnormalities. VISUALIZED UPPER ABDOMEN: Normal. OTHER FINDINGS: None. IMPRESSION: No active disease. Pt refusing tylenol in ER, reports because of her kidney failure. Educated on hepatic clearance of acetaminophen, and pt refuses anyway. Reports that her blanker press operator Dr Garza advised her to not take acetaminophen. Call Dr Garza' s office who reports that pt has not been to the office in about a year. Udip demonstrate leuks and nitrates. Labs demonstrate leukocytosis and acute on chronic kidney insufficiency. 415p DW Dr Yu Hospitalist for hospitalization for UTI and sepsis. <Keiry Norwood - Last Filed: 05/16/18 00:02> Disposition - Patient ED Disposition Is Patient to be Admitted: Yes <Demetrius Rand - Last Filed: 05/15/18 17:36> - Disposition Disposition Time: 16:30 - Pt Status Changed To: Hospital Disposition Of: Inpatient - Admit Certification Admit to Inpatient:: After my assessment, the patient will require hospitalization for at least two midnights. This is because of the severity of symptoms shown, intensity of services needed, and/or the medical risk in this patient being treated as an outpatient. - POA Present On Arrival: Falls Or Trauma, Cath Associated UTI <Keiry Norwood - Last Filed: 05/16/18 00:02> - Clinical Impression Clinical Impression: Generalized muscle weakness, Urinary retention, Acute on chronic renal failure , Sepsis, Sepsis secondary to UTI - Disposition Condition: FAIR
[2018-05-15 15:36] LABS: BASO % 0.2 % (0.0-2.0); EOS % 0.1 % (0.0-4.0); HEMOGLOBIN 15.6 g/dL (12.0-16.0); LYMPH # 0.6 K/uL (1.0-4.3); LYMPH % 4.4 % (20.0-40.0); MEAN CELL VOLUME 81.1 fl (81.0-99.0); MEAN CORPUSCULAR HEMOGLOBIN 26.8 pg (27.0-31.0); MEAN CORPUSCULAR HGB CONC 33.1 g/dL (33.0-37.0); MEAN PLATELET VOLUME 7.5 fl (7.2-11.7); MONO # 1.3 K/uL (0.0-0.8); MONO % 9.6 % (0.0-10.0); NEUT # 11.3 K/uL (1.8-7.0); NEUT % 85.7 % (50.0-75.0); NRBC % 0.1 % (0.0-0.0); PLATELET COUNT 277 K/uL (130-400); RBC 5.81 Mil/uL (3.80-5.20); RED CELL DISTRIBUTION WIDTH 15.9 % (11.5-14.5); WHITE BLOOD COUNT 13.2 K/uL (4.8-10.8)
[2018-05-15 15:42] LABS: PROTHROMBIN TIME 11.6 Seconds (9.8-13.1)
[2018-05-15 15:42] LABS: VENOUS BLOOD GAS BASE EXCESS 0.6 mmol/L (0.0-2.0); VENOUS BLOOD GAS PCO2 36 mmHg (40-60); VENOUS BLOOD GAS PO2 46 mm/Hg (30-55); VENOUS BLOOD PH 7.44 (7.32-7.43)
[2018-05-15] MEDS ORDERED: Aspirin 325 mg EC Tablets PO STA (15:43)
[2018-05-15 15:44] LABS: ALB/GLOB RATIO 1.1 (1.0-2.1); ALBUMIN 4.3 g/dL (3.5-5.0); ALT/SGPT 29 U/L (9-52); AST/SGOT 28 U/L (14-36); BLOOD UREA NITROGEN 32 mg/dl (7-17); GFR AFRICAN-AMERICAN 26; GFR NON-AFRICAN AMERICAN 22; LIPASE 125 U/L (23-300)
--- NOTE | 2018-05-15 15:54 | RAD ---
HISTORY: sepsis COMPARISON: 03/09/2018 FINDINGS: LUNGS: No active pulmonary disease. PLEURA: No significant pleural effusion identified, no pneumothorax apparent. CARDIOVASCULAR: Normal. OSSEOUS STRUCTURES: No significant abnormalities. VISUALIZED UPPER ABDOMEN: Normal. OTHER FINDINGS: None. IMPRESSION: No active disease.
[2018-05-15 16:08] LABS: ANISOCYTOSIS SLIGHT; BANDS 6 % (0-2); LYMPHOCYTE 3 % (20-50); MONOCYTE 13 % (0-10); NEUTROPHIL 78 % (42-75); PLATELET ESTIMATE NORMAL (NORMAL); TOTAL CELLS COUNTED 100
[2018-05-15] MEDS ORDERED: Aspirin 325 mg EC Tablets PO ONE (16:08)
[2018-05-15 16:54] LABS: SQUAMOUS EPITHIAL 1 /hpf (0-5); URINE BACTERIA RARE (<OCC); URINE BILIRUBIN NEGATIVE (NEGATIVE); URINE BLOOD MODERATE (NEGATIVE); URINE CLARITY CLOUDY (Clear); URINE COLOR YELLOW (YELLOW); URINE GLUCOSE (UA) NEG (Normal); URINE LEUKOCYTE ESTERASE LARGE Leu/uL (Negative); URINE PROTEIN >=500 mg/dL (NEGATIVE); URINE UROBILINOGEN 0.2-1.0 mg/dL (0.2-1.0); WBC CLUMPS FEW /hpf
--- NOTE | 2018-05-15 17:03 | CP.PCM.HP ---
History of Present Illness - History of Present Illness History of Present Illness: 72 yo female with history of COPD, MS with neurogenic bladder and right breast cancer (post lumpectomy with radiotherapy) came in because of on and off fever since 2 days ago accompanied with generalized weakness and nausea. Present on Admission - Present on Admission Any Indicators Present on Admission: No History of DVT/PE: No History of Uncontrolled Diabetes: No Urinary Catheter: No Decubitus Ulcer Present: No Review of Systems - Review of Systems All systems: reviewed and no additional remarkable complaints except (aside from those mentioned above, 12 point system review were negative by me) Past Patient History - Infectious Disease Hx of Infectious Diseases: None - Tetanus Immunizations Tetanus Immunization: Unknown - Past Medical History & Family History Past Medical History?: Yes - Past Social History Smoking Status: Former Smoker Chewing Tobacco Use: No Cigar Use: No Alcohol: Occasional Drugs: Denies Home Situation {Lives}: With Family - CARDIAC Hx Cardiac Disorders: No - PULMONARY Hx Asthma: Yes Hx Bronchitis: Yes Hx Chronic Obstructive Pulmonary Disease (COPD): Yes - NEUROLOGICAL Hx Multiple Sclerosis: Yes - HEENT Hx HEENT Problems: Yes Hx Cataracts: Yes Hx Glaucoma: Yes - RENAL Hx Chronic Kidney Disease: Yes Hx Neurogenic Bladder: Yes Hx Renal Failure: Yes - ENDOCRINE/METABOLIC Hx Hypothyroidism: Yes - HEMATOLOGICAL/ONCOLOGICAL Hx Human Immunodeficiency Virus (HIV): No - INTEGUMENTARY Hx Dermatological Problems: No - MUSCULOSKELETAL/RHEUMATOLOGICAL Hx Musculoskeletal Disorders: Yes Hx Falls: Yes - GASTROINTESTINAL Hx Pancreatitis: Yes - GENITOURINARY/GYNECOLOGICAL Hx Genitourinary Disorders: Yes Hx Urinary Tract Infection: Yes - PSYCHIATRIC Hx Anxiety: Yes - SURGICAL HISTORY Hx Surgeries: Yes Hx Breast Biopsy: Yes Hx Cataract Extraction: Yes Hx Hysterectomy: Yes Hx Joint Replacement: Yes (Right knee) Other/Comment: Right breast Lumpectomy - ANESTHESIA Hx Anesthesia: Yes Hx Anesthesia Reactions: No Meds Allergies/Adverse Reactions: Allergies Allergy/AdvReac Type Severity Reaction Status Date / Time ciprofibrate Allergy unknown Verified 05/15/18 14:43 fluticasone Allergy ANAPHYLAXIS Verified 05/15/18 14:43 [From Advair Diskus] ofloxacin [From Floxin] Allergy unknown Verified 05/15/18 14:43 salmeterol Allergy DIZZINESS Verified 05/15/18 14:43 [From Advair Diskus] shellfish derived Allergy ANAPHYLAXIS Verified 05/15/18 14:43 Physical Exam - Constitutional Appears: No Acute Distress - Head Exam Head Exam: ATRAUMATIC - Eye Exam Eye Exam: absent: Scleral icterus - ENT Exam ENT Exam: Mucous Membranes Moist - Neck Exam Neck exam: Negative for: Meningismus - Respiratory Exam Respiratory Exam: absent: Rales, Rhonchi, Wheezes, Respiratory Distress - Cardiovascular Exam Cardiovascular Exam: REGULAR RHYTHM, +S1, +S2 - GI/Abdominal Exam GI & Abdominal Exam: Soft. absent: Tenderness - Rectal Exam Rectal Exam: Deferred - Extremities Exam Extremities exam: Negative for: calf tenderness, pedal edema - Back Exam Back exam: absent: tenderness - Neurological Exam Neurological exam: Alert, Oriented x3 - Psychiatric Exam Psychiatric exam: Normal Affect - Skin Skin Exam: Dry, Intact Results - Vital Signs Recent Vital Signs: Last Vital Signs Temp 100.2 F H 05/15/18 14:45 Pulse 112 H 05/15/18 14:45 Resp 18 05/15/18 14:45 BP 124/70 05/15/18 14:45 Pulse Ox 91 L 05/15/18 15:34 - Labs Result Diagrams: 05/15/18 15:30 05/15/18 15:30 Labs: Laboratory Results - last 24 hr 05/15/18 05/15/18 05/15/18 15:30 15:30 15:30 WBC 13.2 H D RBC 5.81 H Hgb 15.6 D Hct 47.1 H MCV 81.1 MCH 26.8 L MCHC 33.1 RDW 15.9 H Plt Count 277 D MPV 7.5 Neut % (Auto) 85.7 H Lymph % (Auto) 4.4 L [place] % (Auto) 9.6 Eos % (Auto) 0.1 Baso % (Auto) 0.2 Neut # (Auto) 11.3 H Lymph # (Auto) 0.6 L [place] # (Auto) 1.3 H Eos # (Auto) 0.0 Baso # (Auto) 0.0 Neutrophils % (Manual) 78 H Band Neutrophils % 6 H Lymphocytes % (Manual) 3 L Monocytes % (Manual) 13 H Platelet Estimate Normal Anisocytosis (manual) Slight PT 11.6 INR 1.0 APTT 31.0 pO2 VBG pH VBG pCO2 VBG HCO3 VBG Total CO2 VBG O2 Sat (Calc) VBG Base Excess VBG Potassium Glucose Lactate FiO2 Sodium 136 Potassium 4.3 Chloride 97 L Carbon Dioxide 23 Anion Gap 20 BUN 32 H Creatinine 2.2 H Est GFR ( Amer) 26 Est GFR (Non-Af Amer) 22 POC Glucose (mg/dL) Random Glucose 157 H Calcium 9.0 Phosphorus 4.1 Magnesium 2.1 Total Bilirubin 1.2 AST 28 ALT 29 Alkaline Phosphatase 83 Total Creatine Kinase 35 Troponin I < 0.0120 Total Protein 8.1 Albumin 4.3 Globulin 3.8 Albumin/Globulin Ratio 1.1 Lipase 125 TSH 3rd Generation 0.46 Venous Blood Potassium Blood Type Antibody Screen BBK History Checked 05/15/18 05/15/18 05/15/18 15:30 15:35 15:42 WBC RBC Hgb Hct MCV MCH MCHC RDW Plt Count MPV Neut % (Auto) Lymph % (Auto) [place] % (Auto) Eos % (Auto) Baso % (Auto) Neut # (Auto) Lymph # (Auto) [place] # (Auto) Eos # (Auto) Baso # (Auto) Neutrophils % (Manual) Band Neutrophils % Lymphocytes % (Manual) Monocytes % (Manual) Platelet Estimate Anisocytosis (manual) PT INR APTT pO2 46 VBG pH 7.44 H VBG pCO2 36 L VBG HCO3 25.0 VBG Total CO2 25.6 VBG O2 Sat (Calc) 88.8 H VBG Base Excess 0.6 VBG Potassium 4.0 Glucose 174 H Lactate 1.3 FiO2 21.0 Sodium 133.0 Potassium Chloride 98.0 Carbon Dioxide Anion Gap BUN Creatinine Est GFR ( Amer) Est GFR (Non-Af Amer) POC Glucose (mg/dL) 136 H Random Glucose Calcium Phosphorus Magnesium Total Bilirubin AST ALT Alkaline Phosphatase Total Creatine Kinase Troponin I Total Protein Albumin Globulin Albumin/Globulin Ratio Lipase TSH 3rd Generation Venous Blood Potassium 4.0 Blood Type A POSITIVE Antibody Screen Negative BBK History Checked Patient has bt Assessment & Plan - Assessment and Plan (Free Text) Assessment: 72 yo female with history of COPD, MS with neurogenic bladder and right breast cancer (post lumpectomy with radiotherapy) came in because of on and off fever since 2 days ago accompanied with generalized weakness and nausea. 1. Sepsis secondary to UTI caused by routine urinary catheterization because of neurogenic bladder previous urine was positive for E Coli sensitive to Zosyn blood and urine culture restart Zosyn 3.375gm IV q 6hrs ID consult with Dr Byrnes 2. CKD, stage IV worsening of renal function because of dehydration resume IV hydration with NSS 100cc/hr 3. MS continue straight cath BID for urinary retention 4. COPD stable and asymptomatic Albuterol nebulizer q 4hrs prn pulmonary consult with Dr Vanessa 5. Hypothyroidsm TSH in am on [place] Thyroid and Liothyronine 6. Breast cancer post lumpectomy plus radiation on Letrozole 7. DVT prophylaxis Heparin 5000 units SQ q 12hrs
[2018-05-15] MEDS ORDERED: Mag&Al/Simet/Diphen/Lido 237 ML KIT PO PRN (17:13)
[2018-05-15] MEDS: Sodium Chloride 0.9% 1,000 ML IV SCH (18:56)
[2018-05-15] MEDS: Lactobacillus Acidophilus 500 MU Cap PO SCH (21:28)
[2018-05-15] MEDS: Piperacillin/Tazobact 3.375 GM in Sodium Chloride 0.9% 100 ML IVPB SCH (22:44)
[2018-05-15] MEDS: Albuterol 0.042% Inhal Sol (1.25 mg/3 mL) UD INH PRN (23:06)
[2018-05-16] MEDS: Piperacillin/Tazobact 3.375 GM in Sodium Chloride 0.9% 100 ML IVPB SCH ×3 (04:38→18:47)
[2018-05-16] MEDS: Sodium Chloride 0.9% 1,000 ML IV SCH ×2 (04:41→18:46)
[2018-05-16 05:45] LABS: BASO % 0.3 % (0.0-2.0); EOS % 0.4 % (0.0-4.0); HEMOGLOBIN 12.2 g/dL (12.0-16.0); LYMPH # 1.1 K/uL (1.0-4.3); LYMPH % 11.7 % (20.0-40.0); MEAN CORPUSCULAR HEMOGLOBIN 26.9 pg (27.0-31.0); MEAN CORPUSCULAR HGB CONC 32.9 g/dL (33.0-37.0); MEAN PLATELET VOLUME 7.5 fl (7.2-11.7); MONO # 1.2 K/uL (0.0-0.8); MONO % 12.3 % (0.0-10.0); NEUT # 7.2 K/uL (1.8-7.0); NEUT % 75.3 % (50.0-75.0); RBC 4.52 Mil/uL (3.80-5.20); RED CELL DISTRIBUTION WIDTH 16.1 % (11.5-14.5); WHITE BLOOD COUNT 9.5 K/uL (4.8-10.8)
[2018-05-16] MEDS: Albuterol 0.042% Inhal Sol (1.25 mg/3 mL) UD INH PRN ×2 (09:08→18:28)
[2018-05-16] MEDS: THYROID 30 MG TAB PO SCH (09:43)
[2018-05-16] MEDS: Pantoprazole 40 mg EC Tab PO SCH (09:44)
[2018-05-16] MEDS: Aspirin 325 mg EC Tablets PO SCH (09:44)
[2018-05-16] MEDS: Lactobacillus Acidophilus 500 MU Cap PO SCH ×2 (09:47→22:07)
[2018-05-16 10:11] LABS: CALCIUM 7.9 mg/dL (8.4-10.2)
[2018-05-16] MEDS ORDERED: Potassium Chloride 20 mEq ER Tab PO ONE (10:54)
--- NOTE | 2018-05-16 11:02 | CP.PCM.PN ---
Subjective - Date & Time of Evaluation Date of Evaluation: 05/16/18 Time of Evaluation: 11:02 - Subjective Subjective: pt states she feels improved no othe rcomplaints ast this time hd stable nad Objective - Vital Signs/Intake and Output Vital Signs (last 24 hours): Temp Pulse Resp BP Pulse Ox 97.7 F 76 20 113/68 96 05/16/18 08:00 05/16/18 08:00 05/16/18 08:00 05/16/18 08:00 05/16/18 08:00 EXAM: Vitals stable and reviewed GEN: WDWN, alert, cooperative HEENT: NCAT, PERRL, EOMI Neck: supple, no lymphadenopathy CARDIO: +S1S2, RRR, NO M/R/G LUNG: CTAB, NO W/R/R ABD: soft, NT, ND, no masses, no HSM EXT: no edema, pedal pulses Neuro: AAOx3, Strength equal, bilateral UE/LE Psych: normal mood, normal affect Intake and Output: 05/16/18 05/16/18 06:59 18:59 Intake Total 1440 Output Total 700 Balance 740 - Medications Medications: Current Medications Acetaminophen (Tylenol 325mg Tab) 650 mg PO Q6 PRN PRN Reason: Fever >100.4 F Albuterol Sulfate (Albuterol 0.042% Inhal Renata (1.25mg/3ml) Ud) 1.25 mg INH RQ6 PRN PRN Reason: Shortness of Breath Last Admin: 05/16/18 09:08 Dose: 1.25 mg Alprazolam (Xanax) 0.5 mg PO TID PRN PRN Reason: Anxiety Last Admin: 05/16/18 01:47 Dose: 0.5 mg Aspirin (Ecotrin) 325 mg PO DAILY [facility] Last Admin: 05/16/18 09:44 Dose: 325 mg Docusate Sodium (Colace) 100 mg PO BID PRN PRN Reason: Constipation Heparin Sodium (Porcine) (Heparin) 5,000 units SC Q12 N[facility] PRN Reason: Protocol Last Admin: 05/16/18 09:57 Dose: Not Given Home Med (Letrozole [Femara]) 2.5 mg PO DAILY [facility] Sodium Chloride (Sodium Chloride 0.9%) 1,000 mls @ 100 mls/hr IV .Q10H [facility] Last Admin: 05/16/18 04:41 Dose: 100 mls/hr Piperacillin Sod/Tazobactam (Sod 3.375 gm/ Sodium Chloride) 100 mls @ 100 mls/ hr IVPB Q6 [place] PRN Reason: Protocol Last Admin: 05/16/18 09:44 Dose: 100 mls/hr Lactobacillus Acidophilus (Bacid Acidophilus) 1 cap PO BID@0900,2100 [facility] Last Admin: 05/16/18 09:47 Dose: 1 cap Liothyronine Sodium (Cytomel) 5 mcg PO DAILY [facility] Last Admin: 05/16/18 09:47 Dose: 5 mcg Ondansetron HCl (Zofran Inj) 4 mg IVP Q6 PRN PRN Reason: Nausea/Vomiting Pantoprazole Sodium (Protonix Ec Tab) 40 mg PO DAILY [facility] Last Admin: 05/16/18 09:44 Dose: 40 mg Saliva Substitute (First Magic Mouthwash) 10 ml PO QID PRN PRN Reason: Sore Throat Thyroid ([place] Thyroid) 30 mg PO DAILY@0800 [facility] Last Admin: 05/16/18 09:43 Dose: 30 mg - Labs Labs: 05/16/18 04:20 05/16/18 09:47 PT 11.6 Seconds (9.8-13.1) 05/15/18 15:30 INR 1.0 (0.9-1.2) 05/15/18 15:30 APTT 31.0 Seconds (25.6-37.1) 05/15/18 15:30 Assessment and Plan - Assessment and Plan (Free Text) Plan: 72 yo female with history of COPD, MS with neurogenic bladder and right breast cancer (post lumpectomy with radiotherapy) came in because of on and off fever since 2 days ago accompanied with generalized weakness and nausea. 1. Sepsis secondary to UTI caused by routine urinary catheterization because of neurogenic bladder previous urine was positive for E Coli sensitive to Zosyn, cultures still pending sens : gram neg rods blood and urine culture restart Zosyn 3.375gm IV q 6hrs ID consult with Dr Byrnes 2. CKD, stage IV worsening of renal function because of dehydration resume IV hydration with NSS 100cc/hr 3. MS continue straight cath BID for urinary retention 4. COPD stable and asymptomatic Albuterol nebulizer q 4hrs prn pulmonary consult with Dr Vanessa 5. Hypothyroidsm TSH in am on [place] Thyroid and Liothyronine 6. Breast cancer post lumpectomy plus radiation on Letrozole 7. DVT prophylaxis Heparin 5000 units SQ q 12hrs
--- NOTE | 2018-05-16 11:58 | CP.PCM.CON ---
Addendum entered and electronically signed by Maren Espinosa MD 15:31: Otoscopic exam was performed at bedside @ 11 a.m. because patient stated that she has psoriasis in the left ear. Examination demonstrated a non-tender pinna, tragus and ear canal. Ear canal without discharge, mild cerumen present. Tympanic membrane intact with cone of light present. Original Note: History of Present Illness - History of Present Illness History of Present Illness: 72 yo female with medical history including COPD, Asthma, followed by Dr. Vanessa , presented to the E. on 05/15/18 with sepsis secondary to a UTI. She states that yesterday morning she had objective fever of 102.3 Fahrenheit measured with a thermometer associated with one episode of watery diarrhea which lead to weakness of both her legs. Patient reports that she suffers from urinary retention secondary to her M.S. and as a result her straight catheterizes her twice a day. She reports that each catherization session results in about 600 mL of light colored urine. She reports use of a rescue inhaler, Albuterol, at home about 3 times a week and has never had to use it at night. Patient reports that she quit smoking around 1998 and she states she smoked 1 to 2 packs/day for about 15 years. She denies use of drugs or alcohol. Patient seen and examined today with Dr. Vanessa at bedside. Patient reports feeling well and denies fever, chills, nausea, vomiting, diarrhea, abdominal pain, shortness of breath and chest pain. Medical history: Patient has a history of MS, COPD, Asthma, hypothyroidism, Breast Cancer, Ovarian cancer, and cervical cancer Review of Systems - Review of Systems All systems: reviewed and no additional remarkable complaints except - Constitutional Constitutional: Chills, Fever - Gastrointestinal Gastrointestinal: Diarrhea Additional comments: one episode of watery diarrhea Past Patient History - Infectious Disease Hx of Infectious Diseases: None - Tetanus Immunizations Tetanus Immunization: Unknown - Past Medical History & Family History Past Medical History?: Yes - Past Social History Smoking Status: Former Smoker Alcohol: None Drugs: Denies Home Situation {Lives}: Other - CARDIAC Hx Cardiac Disorders: No - PULMONARY Hx Asthma: Yes Hx Bronchitis: Yes Hx Chronic Obstructive Pulmonary Disease (COPD): Yes - NEUROLOGICAL Hx Multiple Sclerosis: Yes - HEENT Hx HEENT Problems: Yes - RENAL Hx Chronic Kidney Disease: Yes - ENDOCRINE/METABOLIC Hx Hypothyroidism: Yes - HEMATOLOGICAL/ONCOLOGICAL Hx Human Immunodeficiency Virus (HIV): No - INTEGUMENTARY Hx Dermatological Problems: No - MUSCULOSKELETAL/RHEUMATOLOGICAL Hx Musculoskeletal Disorders: Yes Hx Falls: Yes - GASTROINTESTINAL Hx Pancreatitis: Yes - GENITOURINARY/GYNECOLOGICAL Hx Genitourinary Disorders: Yes - PSYCHIATRIC Hx Anxiety: Yes Hx Substance Use: No - SURGICAL HISTORY Hx Surgeries: Yes Hx Breast Biopsy: Yes Hx Cataract Extraction: Yes Hx Hysterectomy: Yes Hx Joint Replacement: Yes (Right knee) Other/Comment: Right breast Lumpectomy - ANESTHESIA Hx Anesthesia: Yes Hx Anesthesia Reactions: No Meds Allergies/Adverse Reactions: Allergies Allergy/AdvReac Type Severity Reaction Status Date / Time ciprofibrate Allergy unknown Verified 05/15/18 14:43 fluticasone Allergy ANAPHYLAXIS Verified 05/15/18 14:43 [From Advair Diskus] ofloxacin [From Floxin] Allergy unknown Verified 05/15/18 14:43 salmeterol Allergy DIZZINESS Verified 05/15/18 14:43 [From Advair Diskus] shellfish derived Allergy ANAPHYLAXIS Verified 05/15/18 14:43 - Medications Medications: Current Medications Acetaminophen (Tylenol 325mg Tab) 650 mg PO Q6 PRN PRN Reason: Fever >100.4 F Albuterol Sulfate (Albuterol 0.042% Inhal Renata (1.25mg/3ml) Ud) 1.25 mg INH RQ6 PRN PRN Reason: Shortness of Breath Last Admin: 05/16/18 09:08 Dose: 1.25 mg Alprazolam (Xanax) 0.5 mg PO TID PRN PRN Reason: Anxiety Last Admin: 05/16/18 01:47 Dose: 0.5 mg Aspirin (Ecotrin) 325 mg PO DAILY [facility] Last Admin: 05/16/18 09:44 Dose: 325 mg Docusate Sodium (Colace) 100 mg PO BID PRN PRN Reason: Constipation Heparin Sodium (Porcine) (Heparin) 5,000 units SC Q12 N[facility] PRN Reason: Protocol Last Admin: 05/16/18 09:57 Dose: Not Given Home Med (Letrozole [Femara]) 2.5 mg PO DAILY [facility] Sodium Chloride (Sodium Chloride 0.9%) 1,000 mls @ 100 mls/hr IV .Q10H [facility] Last Admin: 05/16/18 04:41 Dose: 100 mls/hr Piperacillin Sod/Tazobactam (Sod 3.375 gm/ Sodium Chloride) 100 mls @ 100 mls/ hr IVPB Q6 [place] PRN Reason: Protocol Last Admin: 05/16/18 09:44 Dose: 100 mls/hr Lactobacillus Acidophilus (Bacid Acidophilus) 1 cap PO BID@0900,2100 [facility] Last Admin: 05/16/18 09:47 Dose: 1 cap Liothyronine Sodium (Cytomel) 5 mcg PO DAILY [facility] Last Admin: 05/16/18 09:47 Dose: 5 mcg Ondansetron HCl (Zofran Inj) 4 mg IVP Q6 PRN PRN Reason: Nausea/Vomiting Pantoprazole Sodium (Protonix Ec Tab) 40 mg PO DAILY [facility] Last Admin: 05/16/18 09:44 Dose: 40 mg Saliva Substitute (First Magic Mouthwash) 10 ml PO QID PRN PRN Reason: Sore Throat Thyroid ([place] Thyroid) 30 mg PO DAILY@0800 [facility] Last Admin: 05/16/18 09:43 Dose: 30 mg Physical Exam - Constitutional Appears: Non-toxic, No Acute Distress - Head Exam Head Exam: NORMAL INSPECTION - Neck Exam Neck exam: Positive for: Normal Inspection - Respiratory Exam Respiratory Exam: Clear to Auscultation Bilateral. absent: Wheezes Additional comments: Decreased air entry bilaterally and globally Right bibasilar crackles - Cardiovascular Exam Cardiovascular Exam: REGULAR RHYTHM, +S1, +S2 - GI/Abdominal Exam GI & Abdominal Exam: Normal Bowel Sounds, Soft - Back Exam Back exam: absent: CVA tenderness (L), CVA tenderness (R) Additional comments: CVA tenderness negative - Neurological Exam Neurological exam: Alert, Oriented x3 - Psychiatric Exam Psychiatric exam: Normal Affect - Skin Skin Exam: Normal Color Results - Vital Signs Recent Vital Signs: Last Vital Signs Temp 97.7 F 05/16/18 08:00 Pulse 75 05/16/18 09:00 Resp 20 05/16/18 08:00 BP 113/68 05/16/18 08:00 Pulse Ox 96 05/16/18 08:00 - Labs Result Diagrams: 05/16/18 04:20 05/16/18 09:47 Labs: Laboratory Results - last 24 hr 05/15/18 05/15/18 05/15/18 15:30 15:30 15:30 WBC 13.2 H D RBC 5.81 H Hgb 15.6 D Hct 47.1 H MCV 81.1 MCH 26.8 L MCHC 33.1 RDW 15.9 H Plt Count 277 D MPV 7.5 Neut % (Auto) 85.7 H Lymph % (Auto) 4.4 L [place] % (Auto) 9.6 Eos % (Auto) 0.1 Baso % (Auto) 0.2 Neut # (Auto) 11.3 H Lymph # (Auto) 0.6 L [place] # (Auto) 1.3 H Eos # (Auto) 0.0 Baso # (Auto) 0.0 Neutrophils % (Manual) 78 H Band Neutrophils % 6 H Lymphocytes % (Manual) 3 L Monocytes % (Manual) 13 H Platelet Estimate Normal Anisocytosis (manual) Slight PT 11.6 INR 1.0 APTT 31.0 pO2 VBG pH VBG pCO2 VBG HCO3 VBG Total CO2 VBG O2 Sat (Calc) VBG Base Excess VBG Potassium Glucose Lactate FiO2 Sodium 136 Potassium 4.3 Chloride 97 L Carbon Dioxide 23 Anion Gap 20 BUN 32 H Creatinine 2.2 H Est GFR ( Amer) 26 Est GFR (Non-Af Amer) 22 POC Glucose (mg/dL) Random Glucose 157 H Calcium 9.0 Phosphorus 4.1 Magnesium 2.1 Total Bilirubin 1.2 AST 28 ALT 29 Alkaline Phosphatase 83 Total Creatine Kinase 35 Troponin I < 0.0120 Total Protein 8.1 Albumin 4.3 Globulin 3.8 Albumin/Globulin Ratio 1.1 Lipase 125 TSH 3rd Generation 0.46 Venous Blood Potassium Urine Color Urine Clarity Urine pH Ur Specific [place] Urine Protein Urine Glucose (UA) Urine Ketones Urine Blood Urine Nitrate Urine Bilirubin Urine Urobilinogen Ur Leukocyte Esterase Urine RBC (Auto) Urine WBC Clumps (Auto) Urine Microscopic WBC Ur Squamous Epith Cells Urine Bacteria Urine Yeast (Budding) Blood Type Antibody Screen BBK History Checked 05/15/18 05/15/18 05/15/18 15:30 15:35 15:42 WBC RBC Hgb Hct MCV MCH MCHC RDW Plt Count MPV Neut % (Auto) Lymph % (Auto) [place] % (Auto) Eos % (Auto) Baso % (Auto) Neut # (Auto) Lymph # (Auto) [place] # (Auto) Eos # (Auto) Baso # (Auto) Neutrophils % (Manual) Band Neutrophils % Lymphocytes % (Manual) Monocytes % (Manual) Platelet Estimate Anisocytosis (manual) PT INR APTT pO2 46 VBG pH 7.44 H VBG pCO2 36 L VBG HCO3 25.0 VBG Total CO2 25.6 VBG O2 Sat (Calc) 88.8 H VBG Base Excess 0.6 VBG Potassium 4.0 Glucose 174 H Lactate 1.3 FiO2 21.0 Sodium 133.0 Potassium Chloride 98.0 Carbon Dioxide Anion Gap BUN Creatinine Est GFR ( Amer) Est GFR (Non-Af Amer) POC Glucose (mg/dL) 136 H Random Glucose Calcium Phosphorus Magnesium Total Bilirubin AST ALT Alkaline Phosphatase Total Creatine Kinase Troponin I Total Protein Albumin Globulin Albumin/Globulin Ratio Lipase TSH 3rd Generation Venous Blood Potassium 4.0 Urine Color Urine Clarity Urine pH Ur Specific [place] Urine Protein Urine Glucose (UA) Urine Ketones Urine Blood Urine Nitrate Urine Bilirubin Urine Urobilinogen Ur Leukocyte Esterase Urine RBC (Auto) Urine WBC Clumps (Auto) Urine Microscopic WBC Ur Squamous Epith Cells Urine Bacteria Urine Yeast (Budding) Blood Type A POSITIVE Antibody Screen Negative BBK History Checked Patient has bt 05/15/18 05/16/18 05/16/18 16:39 04:20 09:47 WBC 9.5 RBC 4.52 Hgb 12.2 D Hct 37.0 MCV 82.0 MCH 26.9 L MCHC 32.9 L RDW 16.1 H Plt Count 223 MPV 7.5 Neut % (Auto) 75.3 H Lymph % (Auto) 11.7 L [place] % (Auto) 12.3 H Eos % (Auto) 0.4 Baso % (Auto) 0.3 Neut # (Auto) 7.2 H Lymph # (Auto) 1.1 [place] # (Auto) 1.2 H Eos # (Auto) 0.0 Baso # (Auto) 0.0 Neutrophils % (Manual) Band Neutrophils % Lymphocytes % (Manual) Monocytes % (Manual) Platelet Estimate Anisocytosis (manual) PT INR APTT pO2 VBG pH VBG pCO2 VBG HCO3 VBG Total CO2 VBG O2 Sat (Calc) VBG Base Excess VBG Potassium Glucose Lactate FiO2 Sodium 138 Potassium 3.3 L Chloride 102 Carbon Dioxide 25 Anion Gap 14 BUN 31 H Creatinine 2.3 H Est GFR ( Amer) 25 Est GFR (Non-Af Amer) 21 POC Glucose (mg/dL) Random Glucose 119 H Calcium 7.9 L Phosphorus Magnesium Total Bilirubin AST ALT Alkaline Phosphatase Total Creatine Kinase Troponin I Total Protein Albumin Globulin Albumin/Globulin Ratio Lipase TSH 3rd Generation 0.36 L Venous Blood Potassium Urine Color Yellow Urine Clarity Cloudy Urine pH 6.0 Ur Specific [place] 1.009 Urine Protein >=500 Urine Glucose (UA) Neg Urine Ketones Negative Urine Blood Moderate Urine Nitrate Positive H Urine Bilirubin Negative Urine Urobilinogen 0.2-1.0 Ur Leukocyte Esterase Large Urine RBC (Auto) 95 H Urine WBC Clumps (Auto) Few H Urine Microscopic WBC 87 H Ur Squamous Epith Cells 1 Urine Bacteria Rare Urine Yeast (Budding) Mod H Blood Type Antibody Screen BBK History Checked Assessment & Plan (1) Sepsis secondary to UTI Assessment and Plan: Continue current regimen:Zosyn Pending blood and Urine culture Status: Acute (2) CKD (chronic kidney disease), stage IV Status: Acute (3) Multiple sclerosis Assessment and Plan: Continue [place] cath BID for urinary retention secondary to M.S Status: Acute (4) COPD (chronic obstructive pulmonary disease) Assessment and Plan: Chronic controlled Dr. Vanessa consulted, patient is stable Continue Albuterol Q4H prn Status: Chronic (5) Hypothyroid Assessment and Plan: TSH: 0.36 [place] thyroid and Liothyronine Patient may need adjustment of Thyroid medication Status: Chronic
[2018-05-16] MEDS: Lidocaine 5% Patch TD SCH (14:35)
--- NOTE | 2018-05-16 15:09 | CARD ---
APPROVED REPORT EKG Measurement Heart [id number] <Conclusion> Sinus tachycardia Right axis deviation Pulmonary disease pattern Abnormal ECG
--- NOTE | 2018-05-16 17:41 | CP.PCM.PN ---
Subjective - Date & Time of Evaluation Date of Evaluation: 05/16/18 Time of Evaluation: 17:40 - Subjective Subjective: I D NOTE GROWING GRAM NEG RODS AFERILE HAVE SWITCHED TO ERTAPENEM FUULCONSULT DICTATED Objective - Vital Signs/Intake and Output Vital Signs (last 24 hours): Temp Pulse Resp BP Pulse Ox 97.2 F L 75 20 117/70 96 05/16/18 16:21 05/16/18 16:21 05/16/18 16:21 05/16/18 16:21 05/16/18 16:21 Intake and Output: 05/16/18 05/16/18 06:59 18:59 Intake Total 1440 Output Total 700 Balance 740 - Medications Medications: Current Medications Acetaminophen (Tylenol 325mg Tab) 650 mg PO Q6 PRN PRN Reason: Fever >100.4 F Albuterol Sulfate (Albuterol 0.042% Inhal Renata (1.25mg/3ml) Ud) 1.25 mg INH RQ6 PRN PRN Reason: Shortness of Breath Last Admin: 05/16/18 09:08 Dose: 1.25 mg Alprazolam (Xanax) 0.5 mg PO TID PRN PRN Reason: Anxiety Last Admin: 05/16/18 01:47 Dose: 0.5 mg Aspirin (Ecotrin) 325 mg PO DAILY [facility] Last Admin: 05/16/18 09:44 Dose: 325 mg Docusate Sodium (Colace) 100 mg PO BID PRN PRN Reason: Constipation Heparin Sodium (Porcine) (Heparin) 5,000 units SC Q12 [facility] PRN Reason: Protocol Last Admin: 05/16/18 09:57 Dose: Not Given Ertapenem 1 gm/ Sodium (Chloride) 100 mls @ 100 mls/hr IVPB DAILY [facility] PRN Reason: Protocol Lactobacillus Acidophilus (Bacid Acidophilus) 1 cap PO BID@0900,2100 [facility] Last Admin: 05/16/18 09:47 Dose: 1 cap Lidocaine (Lidoderm) 1 ea TD DAILY [facility] Last Admin: 05/16/18 14:35 Dose: 1 ea Liothyronine Sodium (Cytomel) 5 mcg PO DAILY [facility] Last Admin: 05/16/18 09:47 Dose: 5 mcg Ondansetron HCl (Zofran Inj) 4 mg IVP Q6 PRN PRN Reason: Nausea/Vomiting Pantoprazole Sodium (Protonix Ec Tab) 40 mg PO DAILY [facility] Last Admin: 05/16/18 09:44 Dose: 40 mg Saliva Substitute (First Magic Mouthwash) 10 ml PO QID PRN PRN Reason: Sore Throat Thyroid ([place] Thyroid) 30 mg PO DAILY@0800 [facility] Last Admin: 05/16/18 09:43 Dose: 30 mg - Labs Labs: 05/16/18 04:20 05/16/18 09:47 PT 11.6 Seconds (9.8-13.1) 05/15/18 15:30 INR 1.0 (0.9-1.2) 05/15/18 15:30 APTT 31.0 Seconds (25.6-37.1) 05/15/18 15:30
[2018-05-17] MEDS: Albuterol 0.042% Inhal Sol (1.25 mg/3 mL) UD INH PRN ×4 (01:55→21:07)
[2018-05-17 05:56] LABS: CALCIUM 8.7 mg/dL (8.4-10.2)
[2018-05-17] MEDS: THYROID 30 MG TAB PO SCH (08:15)
[2018-05-17] MEDS: Lidocaine 5% Patch TD SCH (10:23)
[2018-05-17] MEDS: Pantoprazole 40 mg EC Tab PO SCH (10:26)
[2018-05-17] MEDS: Aspirin 325 mg EC Tablets PO SCH (10:30)
--- NOTE | 2018-05-17 10:30 | CP.PCM.PN ---
Subjective - Date & Time of Evaluation Date of Evaluation: 05/17/18 Time of Evaluation: 10:30 - Subjective Subjective: Seated up on the edge of her bed. Claims she feels relatively well/improved. Vital signs have remained stable, she continues to be afebrile. Leukocytosis has resolved, renal function is slowly improving. Urine culture grew E coli, sensitivities reviewed. Mild flushed facies remain. Objective - Vital Signs/Intake and Output Vital Signs (last 24 hours): Temp Pulse Resp BP Pulse Ox 97.6 F 79 20 116/77 96 05/17/18 08:00 05/17/18 08:00 05/17/18 08:00 05/17/18 08:00 05/17/18 08:00 Intake and Output: 05/16/18 05/17/18 23:59 11:59 Intake Total 2000 300 Output Total 600 600 Balance 1400 -300 - Medications Medications: Current Medications Acetaminophen (Tylenol 325mg Tab) 650 mg PO Q6 PRN PRN Reason: Fever >100.4 F Albuterol Sulfate (Albuterol 0.042% Inhal Renata (1.25mg/3ml) Ud) 1.25 mg INH RQ6 PRN PRN Reason: Shortness of Breath Last Admin: 05/17/18 07:43 Dose: 1.25 mg Alprazolam (Xanax) 0.5 mg PO TID PRN PRN Reason: Anxiety Last Admin: 05/17/18 01:36 Dose: 0.5 mg Aspirin (Ecotrin) 325 mg PO DAILY [facility] Last Admin: 05/16/18 09:44 Dose: 325 mg Docusate Sodium (Colace) 100 mg PO BID PRN PRN Reason: Constipation Heparin Sodium (Porcine) (Heparin) 5,000 units SC Q12 NIDA PRN Reason: Protocol Last Admin: 05/16/18 22:08 Dose: Not Given Ertapenem 1 gm/ Sodium (Chloride) 100 mls @ 100 mls/hr IVPB DAILY N[facility] PRN Reason: Protocol Lactobacillus Acidophilus (Bacid Acidophilus) 1 cap PO BID@0900,2100 [facility] Last Admin: 05/16/18 22:07 Dose: 1 cap Lidocaine (Lidoderm) 1 ea TD DAILY [facility] Last Admin: 05/16/18 14:35 Dose: 1 ea Liothyronine Sodium (Cytomel) 5 mcg PO DAILY [facility] Last Admin: 05/16/18 09:47 Dose: 5 mcg Ondansetron HCl (Zofran Inj) 4 mg IVP Q6 PRN PRN Reason: Nausea/Vomiting Pantoprazole Sodium (Protonix Ec Tab) 40 mg PO DAILY [facility] Last Admin: 05/16/18 09:44 Dose: 40 mg Saliva Substitute (First Magic Mouthwash) 10 ml PO QID PRN PRN Reason: Sore Throat Thyroid ([place] Thyroid) 30 mg PO DAILY@0800 [facility] Last Admin: 05/16/18 09:43 Dose: 30 mg - Labs Labs: 05/16/18 04:20 05/17/18 04:20 PT 11.6 Seconds (9.8-13.1) 05/15/18 15:30 INR 1.0 (0.9-1.2) 05/15/18 15:30 APTT 31.0 Seconds (25.6-37.1) 05/15/18 15:30
[2018-05-17] MEDS: Lactobacillus Acidophilus 500 MU Cap PO SCH ×2 (10:34→21:59)
--- NOTE | 2018-05-17 15:06 | CP.PCM.PN ---
Subjective - Date & Time of Evaluation Date of Evaluation: 05/17/18 Time of Evaluation: 15:03 - Subjective Subjective: pt doing well today no complaints denies pain, discomfort, cp, sob hd stable nad Objective - Vital Signs/Intake and Output Vital Signs (last 24 hours): Temp Pulse Resp BP Pulse Ox 97.4 F L 64 20 125/73 95 05/17/18 12:00 05/17/18 12:00 05/17/18 12:00 05/17/18 12:00 05/17/18 12:00 Vitals stable and reviewed GEN: WDWN, alert, cooperative HEENT: NCAT, PERRL, EOMI Neck: supple, no lymphadenopathy CARDIO: +S1S2, RRR, NO M/R/G LUNG: CTAB, NO W/R/R ABD: soft, NT, ND, no masses, no HSM EXT: no edema, pedal pulses Neuro: AAOx3, Strength equal, bilateral UE/LE Psych: normal mood, normal affect Intake and Output: 05/17/18 05/17/18 06:59 18:59 Intake Total 300 Output Total 600 Balance -300 - Medications Medications: Current Medications Acetaminophen (Tylenol 325mg Tab) 650 mg PO Q6 PRN PRN Reason: Fever >100.4 F Albuterol Sulfate (Albuterol 0.042% Inhal Renata (1.25mg/3ml) Ud) 1.25 mg INH RQ6 PRN PRN Reason: Shortness of Breath Last Admin: 05/17/18 13:26 Dose: 1.25 mg Alprazolam (Xanax) 0.5 mg PO TID PRN PRN Reason: Anxiety Last Admin: 05/17/18 01:36 Dose: 0.5 mg Aspirin (Ecotrin) 325 mg PO DAILY [facility] Last Admin: 05/17/18 10:30 Dose: 325 mg Docusate Sodium (Colace) 100 mg PO BID PRN PRN Reason: Constipation Heparin Sodium (Porcine) (Heparin) 5,000 units SC Q12 NIDA PRN Reason: Protocol Last Admin: 05/17/18 10:30 Dose: Not Given Ertapenem 1 gm/ Sodium (Chloride) 100 mls @ 100 mls/hr IVPB DAILY [facility] PRN Reason: Protocol Last Admin: 05/17/18 10:33 Dose: 100 mls/hr Lactobacillus Acidophilus (Bacid Acidophilus) 1 cap PO BID@0900,2100 [facility] Last Admin: 05/17/18 10:34 Dose: 1 cap Lidocaine (Lidoderm) 1 ea TD DAILY [facility] Last Admin: 05/17/18 10:23 Dose: 1 ea Liothyronine Sodium (Cytomel) 5 mcg PO DAILY [facility] Last Admin: 05/17/18 10:34 Dose: 5 mcg Ondansetron HCl (Zofran Inj) 4 mg IVP Q6 PRN PRN Reason: Nausea/Vomiting Pantoprazole Sodium (Protonix Ec Tab) 40 mg PO DAILY [facility] Last Admin: 05/17/18 10:26 Dose: 40 mg Saliva Substitute (First Magic Mouthwash) 10 ml PO QID PRN PRN Reason: Sore Throat Thyroid ([place] Thyroid) 30 mg PO DAILY@0800 [facility] Last Admin: 05/17/18 08:15 Dose: 30 mg - Labs Labs: 05/16/18 04:20 05/17/18 04:20 PT 11.6 Seconds (9.8-13.1) 05/15/18 15:30 INR 1.0 (0.9-1.2) 05/15/18 15:30 APTT 31.0 Seconds (25.6-37.1) 05/15/18 15:30 Assessment and Plan - Assessment and Plan (Free Text) Plan: 72 yo female with history of COPD, MS with neurogenic bladder and right breast cancer (post lumpectomy with radiotherapy) came in because of on and off fever since 2 days ago accompanied with generalized weakness and nausea. 1. Sepsis secondary to UTI caused by routine urinary catheterization because of neurogenic bladder pt was initially on zosyn due to sensitivities on prior cultures, however sensitivities resulted +ecoli, sens to Ertapenem ID consult with Dr Byrnes pt changed to Ertapenem today 2. CKD, stage IV stable resume IV hydration with NSS 100cc/hr 3. MS continue straight cath BID for urinary retention 4. COPD stable and asymptomatic Albuterol nebulizer q 4hrs prn pulmonary consult with Dr Vanessa 5. Hypothyroidsm TSH in am on [place] Thyroid and Liothyronine 6. Breast cancer post lumpectomy plus radiation on Letrozole 7. DVT prophylaxis Heparin 5000 units SQ q 12hrs
[2018-05-17 19:44] LABS: URINE BILIRUBIN NEGATIVE (NEGATIVE); URINE BLOOD NEGATIVE (NEGATIVE); URINE CLARITY CLEAR (Clear); URINE COLOR STRAW (YELLOW); URINE GLUCOSE (UA) NEG (Normal); URINE LEUKOCYTE ESTERASE LARGE Leu/uL (Negative); URINE PROTEIN NEGATIVE (NEGATIVE); URINE UROBILINOGEN 0.2-1.0 mg/dL (0.2-1.0)
[2018-05-18] MEDS: Albuterol 0.042% Inhal Sol (1.25 mg/3 mL) UD INH PRN (07:54)
[2018-05-18 08:17] VITALS: PULSE 78; RESP 20; TEMP 97.8; O2SAT 93
[2018-05-18 08:18] VITALS: BP 132/74
[2018-05-18] MEDS: THYROID 30 MG TAB PO SCH (09:10)
[2018-05-18] MEDS: Aspirin 325 mg EC Tablets PO SCH (09:13)
[2018-05-18] MEDS: Pantoprazole 40 mg EC Tab PO SCH (09:16)
[2018-05-18] MEDS: Lidocaine 5% Patch TD SCH (09:16)
[2018-05-18] MEDS: Lactobacillus Acidophilus 500 MU Cap PO SCH (09:19)
--- NOTE | 2018-05-18 10:23 | CP.PCM.DIS ---
Provider - Provider Date of Admission: 05/15/18 16:38 Attending physician: Oz Yu MD Time Spent in preparation of Discharge (in minutes): 30 Diagnosis - Discharge Diagnosis (1) UTI (urinary tract infection) Status: Acute (2) Urinary retention Status: Chronic Priority: High Hospital Course - Lab Results Lab Results: Micro Results 05/15/18 15:45 Blood Blood Culture - Preliminary NO GROWTH AFTER 48 HOURS 05/15/18 15:30 Blood Blood Culture - Preliminary NO GROWTH AFTER 48 HOURS 05/15/18 16:39 Urine,Catheterized Urine Culture - Final Escherichia Coli Most Recent Lab Values WBC 9.5 K/uL (4.8-10.8) 05/16/18 04:20 RBC 4.52 Mil/uL (3.80-5.20) 05/16/18 04:20 Hgb 12.2 g/dL (12.0-16.0) D 05/16/18 04:20 Hct 37.0 % (34.0-47.0) 05/16/18 04:20 MCV 82.0 fl (81.0-99.0) 05/16/18 04:20 MCH 26.9 pg (27.0-31.0) L 05/16/18 04:20 MCHC 32.9 g/dL (33.0-37.0) L 05/16/18 04:20 RDW 16.1 % (11.5-14.5) H 05/16/18 04:20 Plt Count 223 K/uL (130-400) 05/16/18 04:20 MPV 7.5 fl (7.2-11.7) 05/16/18 04:20 Neut % (Auto) 75.3 % (50.0-75.0) H 05/16/18 04:20 Lymph % (Auto) 11.7 % (20.0-40.0) L 05/16/18 04:20 [place] % (Auto) 12.3 % (0.0-10.0) H 05/16/18 04:20 Eos % (Auto) 0.4 % (0.0-4.0) 05/16/18 04:20 Baso % (Auto) 0.3 % (0.0-2.0) 05/16/18 04:20 Neut # (Auto) 7.2 K/uL (1.8-7.0) H 05/16/18 04:20 Lymph # (Auto) 1.1 K/uL (1.0-4.3) 05/16/18 04:20 [place] # (Auto) 1.2 K/uL (0.0-0.8) H 05/16/18 04:20 Eos # (Auto) 0.0 K/uL (0.0-0.7) 05/16/18 04:20 Baso # (Auto) 0.0 K/uL (0.0-0.2) 05/16/18 04:20 Neutrophils % (Manual) 78 % (42-75) H 05/15/18 15:30 Band Neutrophils % 6 % (0-2) H 05/15/18 15:30 Lymphocytes % (Manual) 3 % (20-50) L 05/15/18 15:30 Monocytes % (Manual) 13 % (0-10) H 05/15/18 15:30 Platelet Estimate Normal (NORMAL) 05/15/18 15:30 Anisocytosis (manual) Slight 05/15/18 15:30 PT 11.6 Seconds (9.8-13.1) 05/15/18 15:30 INR 1.0 (0.9-1.2) 05/15/18 15:30 APTT 31.0 Seconds (25.6-37.1) 05/15/18 15:30 pO2 46 mm/Hg (30-55) 05/15/18 15:35 VBG pH 7.44 (7.32-7.43) H 05/15/18 15:35 VBG pCO2 36 mmHg (40-60) L 05/15/18 15:35 VBG HCO3 25.0 mmol/L 05/15/18 15:35 VBG Total CO2 25.6 mmol/L (22-28) 05/15/18 15:35 VBG O2 Sat (Calc) 88.8 % (40-65) H 05/15/18 15:35 VBG Base Excess 0.6 mmol/L (0.0-2.0) 05/15/18 15:35 VBG Potassium 4.0 mmol/L (3.6-5.2) 05/15/18 15:35 Sodium 133.0 mmol/L (132-148) 05/15/18 15:35 Chloride 98.0 mmol/L (98-107) 05/15/18 15:35 Glucose 174 mg/dL (65-105) H 05/15/18 15:35 Lactate 1.3 mmol/L (0.7-2.1) 05/15/18 15:35 FiO2 21.0 % 05/15/18 15:35 Sodium 142 mmol/l (132-148) 05/17/18 04:20 Potassium 3.8 MMOL/L (3.6-5.0) 05/17/18 04:20 Chloride 105 mmol/L (98-107) 05/17/18 04:20 Carbon Dioxide 26 mmol/L (22-30) 05/17/18 04:20 Anion Gap 15 (10-20) 05/17/18 04:20 BUN 25 mg/dl (7-17) H 05/17/18 04:20 Creatinine 1.9 mg/dl (0.7-1.2) H 05/17/18 04:20 Est GFR ( Amer) 31 05/17/18 04:20 Est GFR (Non-Af Amer) 26 05/17/18 04:20 POC Glucose (mg/dL) 136 mg/dL (65-110) H 05/15/18 15:42 Random Glucose 130 mg/dL (65-105) H 05/17/18 04:20 Calcium 8.7 mg/dL (8.4-10.2) 05/17/18 04:20 Phosphorus 4.1 mg/dl (2.5-4.5) 05/15/18 15:30 Magnesium 2.1 MG/DL (1.6-2.3) 05/15/18 15:30 Total Bilirubin 1.2 mg/dl (0.2-1.3) 05/15/18 15:30 AST 28 U/L (14-36) 05/15/18 15:30 ALT 29 U/L (9-52) 05/15/18 15:30 Alkaline Phosphatase 83 U/L (38-126) 05/15/18 15:30 Total Creatine Kinase 35 U/L (30-135) 05/15/18 15:30 Troponin I < 0.0120 ng/mL (0.00-0.120) 05/15/18 15:30 Total Protein 8.1 G/DL (6.3-8.2) 05/15/18 15:30 Albumin 4.3 g/dL (3.5-5.0) 05/15/18 15:30 Globulin 3.8 gm/dL (2.2-3.9) 05/15/18 15:30 Albumin/Globulin Ratio 1.1 (1.0-2.1) 05/15/18 15:30 Lipase 125 U/L (23-300) 05/15/18 15:30 TSH 3rd Generation 0.36 mIU/ML (0.46-4.68) L 05/16/18 09:47 Venous Blood Potassium 4.0 mmol/L (3.6-5.2) 05/15/18 15:35 Urine Color Straw (YELLOW) 05/17/18 19:01 Urine Clarity Clear (Clear) 05/17/18 19:01 Urine pH 6.0 (5.0-8.0) 05/17/18 19:01 Ur Specific [place] 1.009 (1.003-1.030) 05/17/18 19:01 Urine Protein Negative mg/dL (NEGATIVE) 05/17/18 19:01 Urine Glucose (UA) Neg mg/dL (Normal) 05/17/18 19:01 Urine Ketones Negative mg/dL (NEGATIVE) 05/17/18 19:01 Urine Blood Negative (NEGATIVE) 05/17/18 19:01 Urine Nitrate Negative (NEGATIVE) 05/17/18 19:01 Urine Bilirubin Negative (NEGATIVE) 05/17/18 19:01 Urine Urobilinogen 0.2-1.0 mg/dL (0.2-1.0) 05/17/18 19:01 Ur Leukocyte Esterase Large Sandra/uL (Negative) 05/17/18 19:01 Urine RBC (Auto) 2 /hpf (0-3) 05/17/18 19:01 Urine WBC Clumps (Auto) Few /hpf (NONE) H 05/15/18 16:39 Urine Microscopic WBC 10 /hpf (0-5) H 05/17/18 19:01 Ur Squamous Epith Cells 1 /hpf (0-5) 05/15/18 16:39 Urine Bacteria Rare (<OCC) 05/15/18 16:39 Urine Yeast (Budding) Mod /hpf (NEGATIVE) H 05/15/18 16:39 Blood Type A POSITIVE 05/15/18 15:30 Antibody Screen Negative 05/15/18 15:30 BBK History Checked Patient has bt 05/15/18 15:30 - Hospital Course Hospital Course: 72 yo female with history of COPD, MS with neurogenic bladder and right breast cancer (post lumpectomy with radiotherapy) came in because of on and off fever since 2 days ago accompanied with generalized weakness and nausea. 1. Sepsis secondary to UTI caused by routine urinary catheterization because of neurogenic bladder pt was initially on zosyn changed to ertapenem. now pt may be discharged on PO Keflex. ID consult with Dr Byrnes Discussed with Dr. Fisher who is covering for Dr. Byrnes and Dr. Vanessa as well. Pt to follow up with PCP in one week. 2. CKD, stage IV stable resume IV hydration with NSS 100cc/hr 3. MS continue straight cath BID for urinary retention 4. COPD stable and asymptomatic Albuterol nebulizer q 4hrs prn pulmonary consult with Dr Vanessa 5. Hypothyroidsm TSH in am on [place] Thyroid and Liothyronine 6. Breast cancer post lumpectomy plus radiation on Letrozole 7. DVT prophylaxis Heparin 5000 units SQ q 12hrs Discharge Exam - Head Exam Head Exam: NORMAL INSPECTION, NORMOCEPHALIC - Eye Exam Eye Exam: EOMI, Normal appearance, PERRL Pupil Exam: NORMAL ACCOMODATION, PERRL - Neck Exam Neck exam: Normal Inspection - Respiratory Exam Respiratory Exam: Clear to PA & Lateral, NORMAL BREATHING PATTERN - Cardiovascular Exam Cardiovascular Exam: RRR, +S1, +S2 - GI/Abdominal Exam GI & Abdominal Exam: Normal Bowel Sounds, Soft. absent: Organomegaly, Unremarkable - Extremities Exam Extremities exam: normal capillary refill, pedal pulses present - Back Exam Back exam: absent: CVA tenderness (L), CVA tenderness (R) - Neurological Exam Neurological exam: Alert, Oriented x3 - Psychiatric Exam Psychiatric exam: Normal Affect, Normal Mood - Skin Skin Exam: Dry, Warm Discharge Plan - Discharge Medications Prescriptions: Cephalexin [cephalexin] 500 mg PO Q12 #14 cap - Follow Up Plan Condition: FAIR Disposition: HOME/ ROUTINE Instructions: Urinary Tract Infection, Adult (DC), Sepsis, Adult (DC) Referrals: Braden Vanessa MD [Family Provider] - [facility],Suhas Bailey MD [Medical Doctor] -
--- NOTE | 2018-05-18 11:20 | CP.PCM.PN ---
Subjective - Date & Time of Evaluation Date of Evaluation: 05/18/18 Time of Evaluation: 08:15 - Subjective Subjective: Patient was seen and examined at bedside with Dr. Vanessa. Patient states that she is feeling well and had minimal appetite due to worrying about her at home and disliking the hospital food. Patient has been afebrile and vitally stable. She denies abdominal pain, vomiting, diarrhea, shortness of breath and chest pain. Patient is being discharged today on PO antibiotic Ceftin. Objective - Vital Signs/Intake and Output Vital Signs (last 24 hours): Temp Pulse Resp BP Pulse Ox 97.8 F 78 20 132/74 93 L 05/18/18 08:16 05/18/18 08:16 05/18/18 08:16 05/18/18 08:16 05/18/18 08:16 Intake and Output: 05/18/18 05/18/18 06:59 18:59 Output Total 700 Balance -700 - Medications Medications: Current Medications Acetaminophen (Tylenol 325mg Tab) 650 mg PO Q6 PRN PRN Reason: Fever >100.4 F Albuterol Sulfate (Albuterol 0.042% Inhal Renata (1.25mg/3ml) Ud) 1.25 mg INH RQ6 PRN PRN Reason: Shortness of Breath Last Admin: 05/18/18 07:54 Dose: 1.25 mg Alprazolam (Xanax) 0.5 mg PO TID PRN PRN Reason: Anxiety Last Admin: 05/18/18 02:18 Dose: 0.5 mg Aspirin (Ecotrin) 325 mg PO DAILY [facility] Last Admin: 05/18/18 09:13 Dose: 325 mg Docusate Sodium (Colace) 100 mg PO BID PRN PRN Reason: Constipation Heparin Sodium (Porcine) (Heparin) 5,000 units SC Q12 NIDA PRN Reason: Protocol Last Admin: 05/18/18 09:14 Dose: Not Given Ertapenem 1 gm/ Sodium (Chloride) 100 mls @ 100 mls/hr IVPB DAILY [facility] PRN Reason: Protocol Last Admin: 05/18/18 09:15 Dose: 100 mls/hr Lactobacillus Acidophilus (Bacid Acidophilus) 1 cap PO BID@0900,2100 [facility] Last Admin: 05/18/18 09:19 Dose: 1 cap Lidocaine (Lidoderm) 1 ea TD DAILY [facility] Last Admin: 05/18/18 09:16 Dose: 1 ea Liothyronine Sodium (Cytomel) 5 mcg PO DAILY [facility] Last Admin: 05/18/18 09:12 Dose: 5 mcg Ondansetron HCl (Zofran Inj) 4 mg IVP Q6 PRN PRN Reason: Nausea/Vomiting Pantoprazole Sodium (Protonix Ec Tab) 40 mg PO DAILY [facility] Last Admin: 05/18/18 09:16 Dose: 40 mg Saliva Substitute (First Magic Mouthwash) 10 ml PO QID PRN PRN Reason: Sore Throat Thyroid ([place] Thyroid) 30 mg PO DAILY@0800 [facility] Last Admin: 05/18/18 09:10 Dose: 30 mg - Labs Labs: 05/16/18 04:20 05/17/18 04:20 PT 11.6 Seconds (9.8-13.1) 05/15/18 15:30 INR 1.0 (0.9-1.2) 05/15/18 15:30 APTT 31.0 Seconds (25.6-37.1) 05/15/18 15:30 Assessment and Plan (1) Sepsis secondary to UTI Assessment & Plan: Patient will be discharged on Ceftin 250 mg po Bid x10 days follow up with PCP in 1 week. Status: Acute (2) CKD (chronic kidney disease), stage IV Assessment & Plan: stable. Status: Acute (3) Multiple sclerosis Assessment & Plan: Continue treatment at home- straight cath BID Status: Acute (4) COPD (chronic obstructive pulmonary disease) Assessment & Plan: Stable Continue use of Albuterol prn at home Status: Chronic (5) Hypothyroid Assessment & Plan: Continue [place] thyroid and Liothyronine at home. Status: Chronic
== END 2018-05-18 13:46 | disposition home or self-care (01) | DRG 698 ==
LOC: H.ER 14:40 → H.ERHOLD 16:38 → H.TEL 19:01 → H.MEDSURG1 05-17 21:44
DX: T83.518A Infection and inflammatory reaction due to other urinary catheter, initial encounter (principal); A41.9 Sepsis, unspecified organism; N39.0 Urinary tract infection, site not specified; N18.4 Chronic kidney disease, stage 4 (severe); B96.20 Unspecified Escherichia coli [E. coli] as the cause of diseases classified elsewhere; N31.8 Other neuromuscular dysfunction of bladder; R33.8 Other retention of urine; G35 Multiple sclerosis; E86.0 Dehydration; J44.9 Chronic obstructive pulmonary disease, unspecified; E03.9 Hypothyroidism, unspecified; F41.9 Anxiety disorder, unspecified; Y84.6 Urinary catheterization as the cause of abnormal reaction of the patient, or of later complication, without mention of misadventure at the time of the procedure; H61.22 Impacted cerumen, left ear; Z96.651 Presence of right artificial knee joint; Z85.3 Personal history of malignant neoplasm of breast; Z85.41 Personal history of malignant neoplasm of cervix uteri; Z85.43 Personal history of malignant neoplasm of ovary; Z92.3 Personal history of irradiation; Z91.013 Allergy to seafood; Z90.710 Acquired absence of both cervix and uterus; Z87.891 Personal history of nicotine dependence; Z79.82 Long term (current) use of aspirin

== ENCOUNTER 2018-07-01 13:30 | Emergency (ER) | payer OTHER, MEDICARE ==
[2018-07-01 13:31] VITALS: BMI 25.7
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
--- NOTE | 2018-07-01 16:14 | CT ---
Date of service: 07/01/2018 PROCEDURE: CT Cervical Spine without contrast HISTORY: pain COMPARISON: None available. TECHNIQUE: Axial computed tomography images were obtained of the cervical spine without the use of intravenous contrast. Coronal and sagittal reformatted images were created and reviewed. Radiation dose: Total exam DLP = 321.00 mGy-cm. This CT exam was performed using one or more of the following dose reduction techniques: Automated exposure control, adjustment of the mA and/or kV according to patient size, and/or use of iterative reconstruction technique. FINDINGS: VERTEBRAE: Vertebral bodies maintained height. Normal alignment maintained. The atlantoaxial articulation and odontoid process are intact. DISCS/SPINAL CANAL/NEURAL FORAMINA: There is narrowing of the C4-5, C5-6 and C6-7 intervertebral disc spaces consistent with degenerative disc disease. PARASPINAL SOFT TISSUES: Unremarkable. OTHER FINDINGS: None. IMPRESSION: Multilevel degenerative disc disease. No evidence of fracture or dislocation.
[2018-07-01 16:45] VITALS: BP 122/64; PULSE 81; RESP 17; TEMP 98.3
[2018-07-01 17:13] VITALS: O2SAT 98
== END 2018-07-01 16:43 | disposition home or self-care (01) ==
LOC: H.ER 13:30
DX: S16.1XXA Strain of muscle, fascia and tendon at neck level, initial encounter (principal); E03.9 Hypothyroidism, unspecified; G35 Multiple sclerosis; J44.9 Chronic obstructive pulmonary disease, unspecified; N18.9 Chronic kidney disease, unspecified; Z79.82 Long term (current) use of aspirin; Z85.3 Personal history of malignant neoplasm of breast; Z85.41 Personal history of malignant neoplasm of cervix uteri; V89.2XXA Person injured in unspecified motor-vehicle accident, traffic, initial encounter

== ENCOUNTER 2019-01-16 14:16 | Observation (INO) | payer MEDICARE, OTHER ==
[2019-01-16 14:16] VITALS: BMI 25.7
--- NOTE | 2019-01-16 15:06 | ED PDOC ---
HPI: Chest Pain Time Seen by Provider: 01/16/19 14:51 Chief Complaint (Nursing): Chest Pain Chief Complaint (Provider): Chest Pain History Per: Patient History/Exam Limitations: no limitations Onset/Duration Of Symptoms: Hrs (x1 prior to arrival) Current Symptoms Are (Timing): Gone Now Additional Complaint(s): 73 year old female with extensive medical history including right-sided breast cancer and SC, presents to the emergency department for an evaluation of left-si ded chest pain that started 1 hour prior to arrival. Patient states the pain radiated to the left side of her neck, face and ear. She took an aspirin upon onset of symptoms and reports that she feels complete resolution at this time. Patient denies nausea, vomiting, change in medication, or recent viral infection. PCP: Dr. Braden Vanessa Past Medical History Reviewed: Historical Data, Nursing Documentation, Vital Signs Vital Signs: Last Vital Signs Temp 98.7 F 01/16/19 14:27 Pulse 72 01/16/19 14:27 Resp 16 01/16/19 14:27 BP 125/77 01/16/19 14:27 Pulse Ox 99 01/16/19 14:27 - Medical History PMH: Anxiety, Asthma, Bronchitis, COPD, Hypothyroidism, Malignancy (breast/cervical, in remission for both), Multiple Sclerosis, Pancreatitis, Chronic Kidney Disease Denies: HIV - Family History Family History: States: Unknown Family Hx - Home Medications Home Medications: Ambulatory Orders Medication Instructions Recorded Liothyronine Sodium [Cytomel] 10 mcg PO DAILY 05/11/16 Alprazolam [Xanax] 0.5 mg PO TID PRN 03/06/18 Letrozole [Femara] 2.5 mg PO HS 03/06/18 Albuterol 0.083% [Albuterol 0.083% 3 ml IH Q6 PRN 01/16/19 Inhal Renata (2.5 mg/3 ml) UD] Albuterol Sulfate [Ventolin Hfa] 2 puff IH Q6 PRN 01/16/19 Furosemide [Lasix] 40 mg PO DAILY PRN 01/16/19 Naltrexone [Revia] 4.5 mg PO HS 01/16/19 Thyroid,Pork [[place] Thyroid] 30 mg PO DAILY 01/16/19 - Allergies Allergies/Adverse Reactions: Allergies Allergy/AdvReac Type Severity Reaction Status Date / Time ciprofibrate Allergy unknown Verified 01/16/19 14:26 fluticasone Allergy ANAPHYLAXIS Verified 01/16/19 14:26 [From Advair Diskus] ofloxacin [From Floxin] Allergy unknown Verified 01/16/19 14:26 salmeterol Allergy DIZZINESS Verified 01/16/19 14:26 [From Advair Diskus] shellfish derived Allergy ANAPHYLAXIS Verified 01/16/19 14:26 Review of Systems ROS Statement: Except As Marked, All Systems Reviewed And Found Negative ENT: Positive for: Other (left-sided facial pain radiating to ear). Negative for: Nose Discharge, Nose Congestion, Throat Pain Cardiovascular: Positive for: Chest Pain (left-sided) Respiratory: Negative for: Cough, Shortness of Breath Gastrointestinal: Negative for: Nausea, Vomiting Musculoskeletal: Positive for: Neck Pain (left-sided) Physical Exam - Reviewed Nursing Documentation Reviewed: Yes Vital Signs Reviewed: Yes - Physical Exam Appears: Positive for: No Acute Distress Head Exam: Positive for: ATRAUMATIC, NORMAL INSPECTION, NORMOCEPHALIC Skin: Positive for: Normal Color Eye Exam: Positive for: Normal appearance, EOMI, PERRL ENT: Positive for: Normal ENT Inspection Neck: Positive for: Normal Cardiovascular/Chest: Positive for: Chest Non Tender, Other (heart rate fluctuating between 30-70 beats per minute). Negative for: Murmur Respiratory: Positive for: Normal Breath Sounds. Negative for: Wheezing, Respiratory Distress Gastrointestinal/Abdominal: Positive for: Normal Exam Extremity: Positive for: Normal ROM (upper/lower). Negative for: Pedal Edema, Calf Tenderness Neurologic/Psych: Positive for: Alert, Oriented (x3). Negative for: Motor/Sensory Deficits - Laboratory Results Result Diagrams: 01/16/19 14:55 01/16/19 14:55 - ECG O2 Sat by Pulse Oximetry: 99 (RA) Pulse Ox Interpretation: Normal Medical Decision Making Medical Decision Making: Time: 1431 Initial Plan: chest pain with fluctuating bradycardia. pacer pads placed on chest for cardiac work-up. Discussed case with admit team, probable admission. Will evaluate further. * EKG * Labs with troponin * CXR Time: 1432 --EKG: Normal sinus rhythm at 71 beats per minute. Time: 1505 --Patient is refusing to leave pacer pads on chest and attempting to remove it herself. Time: 1750 --Lengthy discussion with patient and family with hospitalist regarding the need for pacemaker placement and admission of close observation. Patient is refusing pacemaker and prefers to see her own key holder. Patient is asking questions about protocol of [facility] cardiology team and further states that she wants to have time to think about admission or signing out against medical advice. Time: 1849 --Patient is agreeable to admission. Scribe Attestation: Documented by Divya Cruz, acting as a scribe for Carol Yañez MD. Provider Scribe Attestation: All medical record entries made by the Scribe were at my direction and personally dictated by me. I have reviewed the chart and agree that the record accurately reflects my personal performance of the history, physical exam, medical decision making, and the department course for this patient. I have also personally directed, reviewed, and agree with the discharge instructions and disposition. Disposition - Disposition Forms: [employer] (Ecuadorean)
[2019-01-16 15:23] LABS: BASO % 0.5 % (0.0-2.0); EOS # 0.2 K/uL (0.0-0.7); HEMOGLOBIN 13.3 g/dL (12.0-16.0); LYMPH # 1.5 K/uL (1.0-4.3); LYMPH % 20.1 % (20.0-40.0); MEAN CELL VOLUME 81.9 fl (81.0-99.0); MEAN CORPUSCULAR HEMOGLOBIN 26.7 pg (27.0-31.0); MEAN CORPUSCULAR HGB CONC 32.6 g/dL (33.0-37.0); MEAN PLATELET VOLUME 6.9 fl (7.2-11.7); MONO # 0.8 K/uL (0.0-0.8); MONO % 10.6 % (0.0-10.0); NEUT # 4.8 K/uL (1.8-7.0); NEUT % 65.8 % (50.0-75.0); RBC 4.99 Mil/uL (3.80-5.20); RED CELL DISTRIBUTION WIDTH 15.6 % (11.5-14.5); WHITE BLOOD COUNT 7.2 K/uL (4.8-10.8)
[2019-01-16 15:28] LABS: ALB/GLOB RATIO 1.3 (1.0-2.1); ALBUMIN 4.3 g/dL (3.5-5.0); ALT/SGPT 29 U/L (9-52); AST/SGOT 23 U/L (14-36); BLOOD UREA NITROGEN 37 mg/dl (7-17); CALCIUM 9.4 mg/dL (8.4-10.2); GFR NON-AFRICAN AMERICAN 29
[2019-01-16 16:05] LABS: B-TYPE NATRIURETIC PEPTIDE 249 pg/ml (0-900)
--- NOTE | 2019-01-16 17:16 | RAD ---
Date of service: 01/16/2019 HISTORY: possible admission COMPARISON: 05/15/2018. FINDINGS: LUNGS: The lungs are well inflated and clear. PLEURA: No pleural effusions or pneumothorax. CARDIOVASCULAR: The heart is normal in size. No aortic atherosclerotic calcifications present. OSSEOUS STRUCTURES: Within normal limits for the patient's age. VISUALIZED UPPER ABDOMEN: Normal. OTHER FINDINGS: None. IMPRESSION: No active pulmonary disease.
--- NOTE | 2019-01-16 18:15 | CARD ---
APPROVED REPORT Date of service: 01/16/2019 EKG Measurement Heart [id number] [id number] <Conclusion> Normal sinus rhythm Low voltage QRS Borderline ECG
[2019-01-16] MEDS ORDERED: Albuterol HFA 90 mcg/actuation (8 g) IH PRN (19:02)
--- NOTE | 2019-01-16 19:07 | CP.PCM.HP ---
<Sultan Farheen - Last Filed: 01/16/19 20:54> History of Present Illness - History of Present Illness History of Present Illness: CC: Chest pain HPI: 73 year old female with MHx significant for Asthma, COPD, Multiple Sclerosis - does Self Urine Straight catheterization BID for Urinary Ret ention, CKD stage 3B, breast CA s/p right breast lumpectomy and radiation treatment admitted for evaluation of chest pain. Patient reports she had left sided chest pain that radiates to her neck, face and ear while sitting in a couch, watching TV. Patient rates the pain as 2/10 lasted for 15-20 minutes. Denies any dyspnea, nausea, vomiting or dizziness during the pain. States chest pain has resolved prior to coming to ED. Patient's heart rate fluctuating between 40's to 120s in ED. In the ED, ECG was normal sinus rhythm. Patient reports she had cardiac stress test done with her tree wrapper Dr. Velasco about a month ago and it was normal. Patient reports she had temperature of 100 F yesterday but denies any fever, chills, nausea, vomiting, cough or dysuria. ROS: all 12 systems reviewed and negative except mentioned in HPI PMD: Dr. Vanessa PMHx: Asthma, MS, Neurogenic bladder secondary to MS, Breast Ca, COPD SHx: Knee surgery in past; Right breast lumpectomy, cataract Allergies: Codeine, fish, pentazocine, ofloxacin, fluticasone, sameterol Medications: As per med rec Family Hx: Reviewed, not contributory Social Hx: Lives with family. Social ETOH. Former smoker Surrogate Decision Maker: , info on chart Present on Admission - Present on Admission Any Indicators Present on Admission: No Review of Systems - Review of Systems Review of Systems: All 12 systems reviewed and negative except as mentioned in HPI Past Patient History - Infectious Disease Hx of Infectious Diseases: None - Tetanus Immunizations Tetanus Immunization: Unknown - Past Medical History & Family History Past Medical History?: Yes - Past Social History Smoking Status: Former Smoker - CARDIAC Hx Cardiac Disorders: No - PULMONARY Hx Asthma: Yes Hx Bronchitis: Yes Hx Chronic Obstructive Pulmonary Disease (COPD): Yes - NEUROLOGICAL Hx Multiple Sclerosis: Yes - HEENT Hx HEENT Problems: Yes - RENAL Hx Chronic Kidney Disease: Yes - ENDOCRINE/METABOLIC Hx Hypothyroidism: Yes - HEMATOLOGICAL/ONCOLOGICAL Hx Human Immunodeficiency Virus (HIV): No - INTEGUMENTARY Hx Dermatological Problems: No - MUSCULOSKELETAL/RHEUMATOLOGICAL Hx Musculoskeletal Disorders: Yes Hx Falls: Yes - GASTROINTESTINAL Hx Pancreatitis: Yes - GENITOURINARY/GYNECOLOGICAL Hx Genitourinary Disorders: Yes Hx Cervical Cancer: Yes Hx Uterine Cancer: Yes Other/Comment: Breast CA - PSYCHIATRIC Hx Anxiety: Yes - SURGICAL HISTORY Hx Surgeries: Yes Hx Breast Biopsy: Yes Hx Cataract Extraction: Yes Hx Hysterectomy: Yes Hx Joint Replacement: Yes (Right knee) Other/Comment: Right breast Lumpectomy - ANESTHESIA Hx Anesthesia: Yes Hx Anesthesia Reactions: No Meds Allergies/Adverse Reactions: Allergies Allergy/AdvReac Type Severity Reaction Status Date / Time ciprofibrate Allergy unknown Verified 01/16/19 14:26 fluticasone Allergy ANAPHYLAXIS Verified 01/16/19 14:26 [From Advair Diskus] ofloxacin [From Floxin] Allergy unknown Verified 01/16/19 14:26 salmeterol Allergy DIZZINESS Verified 01/16/19 14:26 [From Advair Diskus] shellfish derived Allergy ANAPHYLAXIS Verified 01/16/19 14:26 Physical Exam - Constitutional Appears: No Acute Distress - Head Exam Head Exam: NORMAL INSPECTION - Eye Exam Eye Exam: Normal appearance - ENT Exam ENT Exam: Mucous Membranes Moist - Respiratory Exam Respiratory Exam: Clear to Auscultation Bilateral, NORMAL BREATHING PATTERN. absent: Chest Wall Tenderness, Rhonchi, Wheezes - Cardiovascular Exam Cardiovascular Exam: REGULAR RHYTHM, +S1, +S2 - GI/Abdominal Exam GI & Abdominal Exam: Normal Bowel Sounds, Soft. absent: Tenderness - Extremities Exam Extremities exam: Positive for: normal inspection. Negative for: calf tenderness, pedal edema - Neurological Exam Neurological exam: Alert, Oriented x3 - Psychiatric Exam Psychiatric exam: Normal Affect, Normal Mood - Skin Skin Exam: Normal Color Results - Vital Signs Recent Vital Signs: Last Vital Signs Temp 98.7 F 01/16/19 14:27 Pulse 84 01/16/19 18:19 Resp 20 01/16/19 18:19 BP 125/6 L 01/16/19 18:19 Pulse Ox 99 01/16/19 18:31 - Labs Result Diagrams: 01/16/19 14:55 01/16/19 14:55 Labs: Laboratory Results - last 24 hr 01/16/19 01/16/19 14:55 14:55 WBC 7.2 RBC 4.99 Hgb 13.3 Hct 40.9 MCV 81.9 MCH 26.7 L MCHC 32.6 L RDW 15.6 H Plt Count 336 D MPV 6.9 L Neut % (Auto) 65.8 Lymph % (Auto) 20.1 [place] % (Auto) 10.6 H Eos % (Auto) 3.0 Baso % (Auto) 0.5 Neut # (Auto) 4.8 Lymph # (Auto) 1.5 [place] # (Auto) 0.8 Eos # (Auto) 0.2 Baso # (Auto) 0.0 Sodium 137 Potassium 4.1 Chloride 98 Carbon Dioxide 23 Anion Gap 20 BUN 37 H Creatinine 1.7 H Est GFR ( Amer) 35 Est GFR (Non-Af Amer) 29 Random Glucose 103 Calcium 9.4 Phosphorus 4.8 H Magnesium 2.5 H Total Bilirubin 0.4 AST 23 ALT 29 Alkaline Phosphatase 67 Troponin I < 0.0120 NT-Pro-B Natriuret Pep 249 Total Protein 7.6 Albumin 4.3 Globulin 3.3 Albumin/Globulin Ratio 1.3 Assessment & Plan - Assessment and Plan (Free Text) Assessment: 73 year old female with MHx significant for Asthma, COPD, Multiple Sclerosis - does Self Urine Straight catheterization BID for Urinary Retention, CKD stage 3B, breast CA s/p right breast lumpectomy and radiation treatment admitted for evaluation of chest pain. Plan: Chest pain r/o ACS -Admit to telemetry -ECG: normal sinus rhythma at [address]/T wave changes -Troponin x 1 neg, -Cardiology consult: Dr. Reed, f/u recommendation -f/u troponin x 2 Bradyarrhythmia -Patient had an episode of bradyarrhythmia in 40's but patient was asymptomatic -Continue to monitor in Telemetry Multiple Sclerosis - pt follows up with Neurology as outpt - ambulates with wheelchair - PT consult Neurogenic bladder secondary to MS -continue straight cath BID for urinary retention Hx Asthma, unspecified severity and COPD -stable and asymptomatic -cont Albuterol Nebulizer prn CKD, stage IV -stable -c/w IV hydration with NSS 100cc/hr Hypothyroidism -TSH in am -on [place] Thyroid and Liothyronine Hx of Breast cancer -post lumpectomy plus radiation -on Letrozole DVT prophylaxis -Lovenox 40 mg SC daily Plan discussed with Dr. Ruddy Zhong, pgy-2 <Caterina Fox - Last Filed: 01/17/19 08:26> Results - Vital Signs Recent Vital Signs: Last Vital Signs Temp 98.4 F 01/17/19 08:17 Pulse 94 H 01/17/19 08:17 Resp 18 01/17/19 08:17 BP 140/76 01/17/19 08:17 Pulse Ox 96 01/17/19 08:17 - Labs Result Diagrams: 01/17/19 05:30 01/17/19 05:30 Labs: Laboratory Results - last 24 hr 01/16/19 01/16/19 01/16/19 14:55 14:55 19:19 WBC 7.2 RBC 4.99 Hgb 13.3 Hct 40.9 MCV 81.9 MCH 26.7 L MCHC 32.6 L RDW 15.6 H Plt Count 336 D MPV 6.9 L Neut % (Auto) 65.8 Lymph % (Auto) 20.1 [place] % (Auto) 10.6 H Eos % (Auto) 3.0 Baso % (Auto) 0.5 Neut # (Auto) 4.8 Lymph # (Auto) 1.5 [place] # (Auto) 0.8 Eos # (Auto) 0.2 Baso # (Auto) 0.0 PT 11.4 INR 1.0 APTT 36.0 Sodium 137 Potassium 4.1 Chloride 98 Carbon Dioxide 23 Anion Gap 20 BUN 37 H Creatinine 1.7 H Est GFR ( Amer) 35 Est GFR (Non-Af Amer) 29 Random Glucose 103 Calcium 9.4 Phosphorus 4.8 H Magnesium 2.5 H Total Bilirubin 0.4 AST 23 ALT 29 Alkaline Phosphatase 67 Troponin I < 0.0120 NT-Pro-B Natriuret Pep 249 Total Protein 7.6 Albumin 4.3 Globulin 3.3 Albumin/Globulin Ratio 1.3 Triglycerides Cholesterol LDL Cholesterol Direct HDL Cholesterol TSH 3rd Generation Urine Color Urine Clarity Urine pH Ur Specific [place] Urine Protein Urine Glucose (UA) Urine Ketones Urine Blood Urine Nitrate Urine Bilirubin Urine Urobilinogen Ur Leukocyte Esterase Urine RBC (Auto) Urine Microscopic WBC Urine Bacteria 01/17/19 01/17/19 01/17/19 03:57 05:30 05:30 WBC 6.1 RBC 4.69 Hgb 12.5 Hct 38.0 MCV 80.9 L MCH 26.6 L MCHC 32.9 L RDW 15.5 H Plt Count 344 MPV 6.5 L Neut % (Auto) 63.1 Lymph % (Auto) 22.9 [place] % (Auto) 9.2 Eos % (Auto) 4.3 H Baso % (Auto) 0.5 Neut # (Auto) 3.9 Lymph # (Auto) 1.4 [place] # (Auto) 0.6 Eos # (Auto) 0.3 Baso # (Auto) 0.0 PT INR APTT Sodium 141 Potassium 4.1 Chloride 101 Carbon Dioxide 26 Anion Gap 18 BUN 34 H Creatinine 2.0 H Est GFR ( Amer) 29 Est GFR (Non-Af Amer) 24 Random Glucose 101 Calcium 8.9 Phosphorus 4.7 H Magnesium 2.4 H Total Bilirubin 0.3 AST 19 ALT 36 Alkaline Phosphatase 59 Troponin I < 0.0120 NT-Pro-B Natriuret Pep Total Protein 6.9 Albumin 3.8 Globulin 3.1 Albumin/Globulin Ratio 1.2 Triglycerides 128 Cholesterol 169 LDL Cholesterol Direct 86 HDL Cholesterol 45 TSH 3rd Generation 2.27 Urine Color Yellow Urine Clarity Slighty-cloudy Urine pH 6.0 Ur Specific [place] 1.012 Urine Protein Negative Urine Glucose (UA) Neg Urine Ketones Negative Urine Blood Moderate Urine Nitrate Positive H Urine Bilirubin Negative Urine Urobilinogen 0.2-1.0 Ur Leukocyte Esterase Large Urine RBC (Auto) 6 H Urine Microscopic WBC 35 H Urine Bacteria Mod H Attending/Attestation - Attestation I have personally seen and examined this patient.: Yes I have fully participated in the care of the patient.: Yes I have reviewed all pertinent clinical information: Yes Notes (Text): 01/17/19 08:26 agree with findings and plan as above
[2019-01-16 19:33] LABS: PROTHROMBIN TIME 11.4 Seconds (9.8-13.1)
[2019-01-16] MEDS: Sodium Chloride 0.9% 1,000 ML IV SCH (22:17)
[2019-01-17] MEDS: Albuterol 0.083% Inhal Sol (2.5 mg/3 mL) UD IH PRN ×2 (00:18→12:19)
[2019-01-17 04:11] LABS: URINE BACTERIA MOD (<OCC); URINE BILIRUBIN NEGATIVE (NEGATIVE); URINE BLOOD MODERATE (NEGATIVE); URINE CLARITY SLIGHTY-CLOUDY (Clear); URINE COLOR YELLOW (YELLOW); URINE GLUCOSE (UA) NEG (NEGATIVE); URINE LEUKOCYTE ESTERASE LARGE Leu/uL (Negative); URINE PROTEIN NEGATIVE (NEGATIVE); URINE UROBILINOGEN 0.2-1.0 mg/dL (0.2-1.0)
[2019-01-17 06:04] LABS: BASO % 0.5 % (0.0-2.0); EOS # 0.3 K/uL (0.0-0.7); EOS % 4.3 % (0.0-4.0); HEMOGLOBIN 12.5 g/dL (12.0-16.0); LYMPH # 1.4 K/uL (1.0-4.3); LYMPH % 22.9 % (20.0-40.0); MEAN CELL VOLUME 80.9 fl (81.0-99.0); MEAN CORPUSCULAR HEMOGLOBIN 26.6 pg (27.0-31.0); MEAN CORPUSCULAR HGB CONC 32.9 g/dL (33.0-37.0); MEAN PLATELET VOLUME 6.5 fl (7.2-11.7); MONO # 0.6 K/uL (0.0-0.8); MONO % 9.2 % (0.0-10.0); NEUT # 3.9 K/uL (1.8-7.0); NEUT % 63.1 % (50.0-75.0); NRBC % 0.2 % (0.0-0.0); RBC 4.69 Mil/uL (3.80-5.20); RED CELL DISTRIBUTION WIDTH 15.5 % (11.5-14.5); WHITE BLOOD COUNT 6.1 K/uL (4.8-10.8)
[2019-01-17 06:16] LABS: ALB/GLOB RATIO 1.2 (1.0-2.1); ALBUMIN 3.8 g/dL (3.5-5.0); ALT/SGPT 36 U/L (9-52); AST/SGOT 19 U/L (14-36); BLOOD UREA NITROGEN 34 mg/dl (7-17); CALCIUM 8.9 mg/dL (8.4-10.2); GFR NON-AFRICAN AMERICAN 24; HDL CHOLESTEROL 45 MG/DL (30-70)
[2019-01-17 06:19] LABS: LDL CHOLESTEROL 86 mg/dL (0-129)
[2019-01-17] MEDS ORDERED: Pantoprazole 40 mg EC Tab PO SCH (09:00)
[2019-01-17] MEDS ORDERED: Enoxaparin 40 mg Syringe SC SCH (09:00)
[2019-01-17] MEDS ORDERED: THYROID 30 MG TAB PO SCH (09:00)
--- NOTE | 2019-01-17 09:26 | CP.PCM.CON ---
History of Present Illness - History of Present Illness History of Present Illness: This 73-year-old female came into the emergency room after experiencing left shoulder pain followed by discomfort in the neck and jaw. This occurred while she was at rest. The patient has had a nuclear stress test 1 month back which was reported as being normal. A similar test in 2012 also demonstrated no evidence of coronary artery disease. The patient has had multiple sclerosis and at this point is wheelchair-bound. She navigates around her apartment using her feet while in a wheelchair. This has never brought on any chest pain or sudden palpitations. She has a long history of COPD and has had breast malignancy in 2012 which required right mastectomy followed by chemotherapy and radiation as well as cervical and uterine cancer and has undergone hysterectomy. She has had knee replacements and multiple other surgeries as well. She has had a history of recurrent urinary tract infection and has had severe renal insufficiency. She requires bronchodilators on a regular basis. She denies any history of diabetes or symptoms of congestive cardiac failure. Physical examination shows an elderly pleasant lady who is lying flat in bed and can carry on a conversation. She breathes at 16 breaths/min and has a heart rate of 100 bpm regular and a blood pressure of 134/70 mmHg. Her jugular venous pressure was not elevated and there was no edema over lower extremity. The pedal pulses were feeble but distinctly present. There were no carotid bruits. The chest was mildly emphysematous. The first and second heart sounds were normal. There was no murmur or gallop. There were no rales. Her abdomen was soft and liver and spleen were not palpable. Her electrocardiogram showed sinus rhythm with tiny Q waves in [address]-T abnormalities suggestive of myocardial ischemia were detected. This tracing was identical to her earlier cardiograms going as far back as 2016. 2 sets of cardiac enzymes were negative for any evidence of myocyte injury. The patient has renal insufficiency with a creatinine level of 2 mg percent. Her electrolytes were normal. Impression: Atypical chest pain with no evidence of acute coronary syndrome. COPD, multiple sclerosis, history of breast cervical and uterine malignancy. Recurrent urinary tract infection and chronic kidney disease. The patient had a nuclear stress test 1 month back which was reported as being normal. I have discussed this with her port purser. The patient may be allowed to return home and she promises to see him in the next week or so. Past Patient History - Infectious Disease Hx of Infectious Diseases: None - Tetanus Immunizations Tetanus Immunization: Unknown - Past Medical History & Family History Past Medical History?: Yes - Past Social History Smoking Status: Former Smoker - CARDIAC Hx Cardiac Disorders: No - PULMONARY Hx Asthma: Yes Hx Bronchitis: Yes Hx Chronic Obstructive Pulmonary Disease (COPD): Yes - NEUROLOGICAL Hx Multiple Sclerosis: Yes - HEENT Hx HEENT Problems: Yes - RENAL Hx Chronic Kidney Disease: Yes - ENDOCRINE/METABOLIC Hx Hypothyroidism: Yes - HEMATOLOGICAL/ONCOLOGICAL Hx Human Immunodeficiency Virus (HIV): No - INTEGUMENTARY Hx Dermatological Problems: No - MUSCULOSKELETAL/RHEUMATOLOGICAL Hx Musculoskeletal Disorders: Yes Hx Falls: Yes - GASTROINTESTINAL Hx Pancreatitis: Yes - GENITOURINARY/GYNECOLOGICAL Hx Genitourinary Disorders: Yes Hx Cervical Cancer: Yes Hx Uterine Cancer: Yes Other/Comment: Breast CA - PSYCHIATRIC Hx Anxiety: Yes Hx Substance Use: No - SURGICAL HISTORY Hx Surgeries: Yes Hx Breast Biopsy: Yes Hx Cataract Extraction: Yes Hx Hysterectomy: Yes Hx Joint Replacement: Yes (Right knee) Other/Comment: Right breast Lumpectomy - ANESTHESIA Hx Anesthesia: Yes Hx Anesthesia Reactions: No Meds Allergies/Adverse Reactions: Allergies Allergy/AdvReac Type Severity Reaction Status Date / Time ciprofibrate Allergy unknown Verified 01/16/19 14:26 fluticasone Allergy ANAPHYLAXIS Verified 01/16/19 14:26 [From Advair Diskus] ofloxacin [From Floxin] Allergy unknown Verified 01/16/19 14:26 salmeterol Allergy DIZZINESS Verified 01/16/19 14:26 [From Advair Diskus] shellfish derived Allergy ANAPHYLAXIS Verified 01/16/19 14:26 - Medications Medications: Current Medications Albuterol (Ventolin Hfa 90 Mcg/Actuation (8 G)) 2 puff IH Q6 PRN PRN Reason: Shortness of Breath Albuterol Sulfate (Albuterol 0.083% Inhal Renata (2.5 Mg/3 Ml) Ud) 2.5 mg IH Q6 PRN PRN Reason: Shortness of Breath Last Admin: 01/17/19 00:18 Dose: 2.5 mg Alprazolam (Xanax) 0.5 mg PO TID PRN PRN Reason: Anxiety Last Admin: 01/17/19 02:10 Dose: 0.5 mg Enoxaparin Sodium (Lovenox) 40 mg [place] DAILY NIDA; Protocol Furosemide (Lasix) 40 mg PO DAILY PRN PRN Reason: LEG SWELLING/WATER RETENTION Home Med (Letrozole [Femara]) 2.5 mg PO HS NIDA Sodium Chloride (Sodium Chloride 0.9%) 1,000 mls @ 100 mls/hr IV .Q10H NIDA Stop: 01/17/19 21:08 Last Admin: 01/16/19 22:17 Dose: Not Given Liothyronine Sodium (Cytomel) 10 mcg PO DAILY NIDA Naltrexone HCl (Revia) 4.5 mg PO HS NIDA Last Admin: 01/16/19 23:35 Dose: Not Given Pantoprazole Sodium (Protonix Ec Tab) 40 mg PO DAILY NIDA Thyroid ([place] Thyroid) 30 mg PO DAILY NIDA Results - Vital Signs Recent Vital Signs: Last Vital Signs Temp 98.4 F 01/17/19 08:17 Pulse 94 H 01/17/19 08:17 Resp 18 01/17/19 08:17 BP 140/76 01/17/19 08:17 Pulse Ox 96 01/17/19 08:17 - Labs Result Diagrams: 01/17/19 05:30 01/17/19 05:30 Labs: Laboratory Results - last 24 hr 01/16/19 01/16/19 01/16/19 14:55 14:55 19:19 WBC 7.2 RBC 4.99 Hgb 13.3 Hct 40.9 MCV 81.9 MCH 26.7 L MCHC 32.6 L RDW 15.6 H Plt Count 336 D MPV 6.9 L Neut % (Auto) 65.8 Lymph % (Auto) 20.1 [place] % (Auto) 10.6 H Eos % (Auto) 3.0 Baso % (Auto) 0.5 Neut # (Auto) 4.8 Lymph # (Auto) 1.5 [place] # (Auto) 0.8 Eos # (Auto) 0.2 Baso # (Auto) 0.0 PT 11.4 INR 1.0 APTT 36.0 Sodium 137 Potassium 4.1 Chloride 98 Carbon Dioxide 23 Anion Gap 20 BUN 37 H Creatinine 1.7 H Est GFR ( Amer) 35 Est GFR (Non-Af Amer) 29 Random Glucose 103 Calcium 9.4 Phosphorus 4.8 H Magnesium 2.5 H Total Bilirubin 0.4 AST 23 ALT 29 Alkaline Phosphatase 67 Troponin I < 0.0120 NT-Pro-B Natriuret Pep 249 Total Protein 7.6 Albumin 4.3 Globulin 3.3 Albumin/Globulin Ratio 1.3 Triglycerides Cholesterol LDL Cholesterol Direct HDL Cholesterol TSH 3rd Generation Urine Color Urine Clarity Urine pH Ur Specific [place] Urine Protein Urine Glucose (UA) Urine Ketones Urine Blood Urine Nitrate Urine Bilirubin Urine Urobilinogen Ur Leukocyte Esterase Urine RBC (Auto) Urine Microscopic WBC Urine Bacteria 01/17/19 01/17/19 01/17/19 03:57 05:30 05:30 WBC 6.1 RBC 4.69 Hgb 12.5 Hct 38.0 MCV 80.9 L MCH 26.6 L MCHC 32.9 L RDW 15.5 H Plt Count 344 MPV 6.5 L Neut % (Auto) 63.1 Lymph % (Auto) 22.9 [place] % (Auto) 9.2 Eos % (Auto) 4.3 H Baso % (Auto) 0.5 Neut # (Auto) 3.9 Lymph # (Auto) 1.4 [place] # (Auto) 0.6 Eos # (Auto) 0.3 Baso # (Auto) 0.0 PT INR APTT Sodium 141 Potassium 4.1 Chloride 101 Carbon Dioxide 26 Anion Gap 18 BUN 34 H Creatinine 2.0 H Est GFR ( Amer) 29 Est GFR (Non-Af Amer) 24 Random Glucose 101 Calcium 8.9 Phosphorus 4.7 H Magnesium 2.4 H Total Bilirubin 0.3 AST 19 ALT 36 Alkaline Phosphatase 59 Troponin I < 0.0120 NT-Pro-B Natriuret Pep Total Protein 6.9 Albumin 3.8 Globulin 3.1 Albumin/Globulin Ratio 1.2 Triglycerides 128 Cholesterol 169 LDL Cholesterol Direct 86 HDL Cholesterol 45 TSH 3rd Generation 2.27 Urine Color Yellow Urine Clarity Slighty-cloudy Urine pH 6.0 Ur Specific [place] 1.012 Urine Protein Negative Urine Glucose (UA) Neg Urine Ketones Negative Urine Blood Moderate Urine Nitrate Positive H Urine Bilirubin Negative Urine Urobilinogen 0.2-1.0 Ur Leukocyte Esterase Large Urine RBC (Auto) 6 H Urine Microscopic WBC 35 H Urine Bacteria Mod H
[2019-01-17] MEDS: Sodium Chloride 0.9% 1,000 ML IV SCH ×2 (09:34→17:41)
--- NOTE | 2019-01-17 09:50 | CP.PCM.CON ---
History of Present Illness - History of Present Illness History of Present Illness: 73 year old female known to me from the outpatient setting. Past Patient History - Infectious Disease Hx of Infectious Diseases: None - Tetanus Immunizations Tetanus Immunization: Unknown - Past Medical History & Family History Past Medical History?: Yes - Past Social History Smoking Status: Former Smoker - CARDIAC Hx Cardiac Disorders: No - PULMONARY Hx Asthma: Yes Hx Bronchitis: Yes Hx Chronic Obstructive Pulmonary Disease (COPD): Yes - NEUROLOGICAL Hx Multiple Sclerosis: Yes - HEENT Hx HEENT Problems: Yes - RENAL Hx Chronic Kidney Disease: Yes - ENDOCRINE/METABOLIC Hx Hypothyroidism: Yes - HEMATOLOGICAL/ONCOLOGICAL Hx Human Immunodeficiency Virus (HIV): No - INTEGUMENTARY Hx Dermatological Problems: No - MUSCULOSKELETAL/RHEUMATOLOGICAL Hx Musculoskeletal Disorders: Yes Hx Falls: Yes - GASTROINTESTINAL Hx Pancreatitis: Yes - GENITOURINARY/GYNECOLOGICAL Hx Genitourinary Disorders: Yes Hx Cervical Cancer: Yes Hx Uterine Cancer: Yes Other/Comment: Breast CA - PSYCHIATRIC Hx Anxiety: Yes Hx Substance Use: No - SURGICAL HISTORY Hx Surgeries: Yes Hx Breast Biopsy: Yes Hx Cataract Extraction: Yes Hx Hysterectomy: Yes Hx Joint Replacement: Yes (Right knee) Other/Comment: Right breast Lumpectomy - ANESTHESIA Hx Anesthesia: Yes Hx Anesthesia Reactions: No Meds Allergies/Adverse Reactions: Allergies Allergy/AdvReac Type Severity Reaction Status Date / Time ciprofibrate Allergy unknown Verified 01/16/19 14:26 fluticasone Allergy ANAPHYLAXIS Verified 01/16/19 14:26 [From Advair Diskus] ofloxacin [From Floxin] Allergy unknown Verified 01/16/19 14:26 salmeterol Allergy DIZZINESS Verified 01/16/19 14:26 [From Advair Diskus] shellfish derived Allergy ANAPHYLAXIS Verified 01/16/19 14:26 - Medications Medications: Current Medications Albuterol (Ventolin Hfa 90 Mcg/Actuation (8 G)) 2 puff IH Q6 PRN PRN Reason: Shortness of Breath Albuterol Sulfate (Albuterol 0.083% Inhal Renata (2.5 Mg/3 Ml) Ud) 2.5 mg IH Q6 PRN PRN Reason: Shortness of Breath Last Admin: 01/17/19 00:18 Dose: 2.5 mg Alprazolam (Xanax) 0.5 mg PO TID PRN PRN Reason: Anxiety Last Admin: 01/17/19 02:10 Dose: 0.5 mg Enoxaparin Sodium (Lovenox) 40 mg SC DAILY NIAD; Protocol Furosemide (Lasix) 40 mg PO DAILY PRN PRN Reason: LEG SWELLING/WATER RETENTION Home Med (Letrozole [Femara]) 2.5 mg PO HS NIDA Sodium Chloride (Sodium Chloride 0.9%) 1,000 mls @ 100 mls/hr IV .Q10H NIDA Stop: 01/17/19 21:08 Last Admin: 01/17/19 09:34 Dose: Not Given Liothyronine Sodium (Cytomel) 10 mcg PO DAILY NIDA Naltrexone HCl (Revia) 4.5 mg PO HS NIDA Last Admin: 01/16/19 23:35 Dose: Not Given Pantoprazole Sodium (Protonix Ec Tab) 40 mg PO DAILY NIDA Thyroid ([place] Thyroid) 30 mg PO DAILY NIDA Results - Vital Signs Recent Vital Signs: Last Vital Signs Temp 98.4 F 01/17/19 08:17 Pulse 94 H 01/17/19 08:17 Resp 18 01/17/19 08:17 BP 140/76 01/17/19 08:17 Pulse Ox 96 01/17/19 08:17 - Labs Result Diagrams: 01/17/19 05:30 01/17/19 05:30 Labs: Laboratory Results - last 24 hr 01/16/19 01/16/19 01/16/19 14:55 14:55 19:19 WBC 7.2 RBC 4.99 Hgb 13.3 Hct 40.9 MCV 81.9 MCH 26.7 L MCHC 32.6 L RDW 15.6 H Plt Count 336 D MPV 6.9 L Neut % (Auto) 65.8 Lymph % (Auto) 20.1 White % (Auto) 10.6 H Eos % (Auto) 3.0 Baso % (Auto) 0.5 Neut # (Auto) 4.8 Lymph # (Auto) 1.5 White # (Auto) 0.8 Eos # (Auto) 0.2 Baso # (Auto) 0.0 PT 11.4 INR 1.0 APTT 36.0 Sodium 137 Potassium 4.1 Chloride 98 Carbon Dioxide 23 Anion Gap 20 BUN 37 H Creatinine 1.7 H Est GFR ( Amer) 35 Est GFR (Non-Af Amer) 29 Random Glucose 103 Calcium 9.4 Phosphorus 4.8 H Magnesium 2.5 H Total Bilirubin 0.4 AST 23 ALT 29 Alkaline Phosphatase 67 Troponin I < 0.0120 NT-Pro-B Natriuret Pep 249 Total Protein 7.6 Albumin 4.3 Globulin 3.3 Albumin/Globulin Ratio 1.3 Triglycerides Cholesterol LDL Cholesterol Direct HDL Cholesterol TSH 3rd Generation Urine Color Urine Clarity Urine pH Ur Specific [place] Urine Protein Urine Glucose (UA) Urine Ketones Urine Blood Urine Nitrate Urine Bilirubin Urine Urobilinogen Ur Leukocyte Esterase Urine RBC (Auto) Urine Microscopic WBC Urine Bacteria 01/17/19 01/17/19 01/17/19 03:57 05:30 05:30 WBC 6.1 RBC 4.69 Hgb 12.5 Hct 38.0 MCV 80.9 L MCH 26.6 L MCHC 32.9 L RDW 15.5 H Plt Count 344 MPV 6.5 L Neut % (Auto) 63.1 Lymph % (Auto) 22.9 White % (Auto) 9.2 Eos % (Auto) 4.3 H Baso % (Auto) 0.5 Neut # (Auto) 3.9 Lymph # (Auto) 1.4 White # (Auto) 0.6 Eos # (Auto) 0.3 Baso # (Auto) 0.0 PT INR APTT Sodium 141 Potassium 4.1 Chloride 101 Carbon Dioxide 26 Anion Gap 18 BUN 34 H Creatinine 2.0 H Est GFR ( Amer) 29 Est GFR (Non-Af Amer) 24 Random Glucose 101 Calcium 8.9 Phosphorus 4.7 H Magnesium 2.4 H Total Bilirubin 0.3 AST 19 ALT 36 Alkaline Phosphatase 59 Troponin I < 0.0120 NT-Pro-B Natriuret Pep Total Protein 6.9 Albumin 3.8 Globulin 3.1 Albumin/Globulin Ratio 1.2 Triglycerides 128 Cholesterol 169 LDL Cholesterol Direct 86 HDL Cholesterol 45 TSH 3rd Generation 2.27 Urine Color Yellow Urine Clarity Slighty-cloudy Urine pH 6.0 Ur Specific [place] 1.012 Urine Protein Negative Urine Glucose (UA) Neg Urine Ketones Negative Urine Blood Moderate Urine Nitrate Positive H Urine Bilirubin Negative Urine Urobilinogen 0.2-1.0 Ur Leukocyte Esterase Large Urine RBC (Auto) 6 H Urine Microscopic WBC 35 H Urine Bacteria Mod H Assessment & Plan (1) Chest pain Status: Acute Priority: High Comment: Appears to be non-cardiac in origin. GERD? (2) Multiple sclerosis Status: Chronic Priority: High (3) Asthma Status: Chronic Priority: Medium Comment: Overlap syndrome with Asthma/COPD-stable. (4) COPD (chronic obstructive pulmonary disease) Status: Chronic Priority: Medium (5) Neurogenic bladder Status: Acute Priority: High Comment: Requires strait cath at home BID. (6) UTI (urinary tract infection) Status: Acute Priority: High Comment: Recurrent. Secondary to the above. - Date & Time Date: 01/17/19 Time: 09:53
[2019-01-17 10:34] VITALS: RESP 18
--- NOTE | 2019-01-17 11:48 | CP.PCM.DIS ---
<Jeferson Richards - Last Filed: 01/17/19 14:32> Provider - Provider Date of Admission: 01/16/19 18:30 Attending physician: Caterina Fox DO Consults: 01/16/19 19:01 Cardiology Consult Routine Comment: Consulting Provider: Trevon Reed V Consulting Physician: Trevon Reed V Reason for Consult: chest pain 01/17/19 08:26 Pulmonology Consult Routine Comment: Consulting Provider: Braden Vanessa Consulting Physician: Braden Vanessa Reason for Consult: COPD Time Spent in preparation of Discharge (in minutes): 33 Diagnosis - Discharge Diagnosis (1) Chest pain Status: Resolved Priority: High (2) Neurogenic bladder Status: Chronic Priority: High (3) UTI (urinary tract infection) Status: Acute Priority: High (4) Breast CA Status: Chronic (5) CKD (chronic kidney disease), stage III Status: Chronic (6) Hypothyroid Status: Chronic (7) Multiple sclerosis Status: Chronic Priority: High (8) Urinary retention Status: Chronic Priority: High Hospital Course - Lab Results Lab Results: Most Recent Lab Values WBC 6.1 K/uL (4.8-10.8) 01/17/19 05:30 RBC 4.69 Mil/uL (3.80-5.20) 01/17/19 05:30 Hgb 12.5 g/dL (12.0-16.0) 01/17/19 05:30 Hct 38.0 % (34.0-47.0) 01/17/19 05:30 MCV 80.9 fl (81.0-99.0) L 01/17/19 05:30 MCH 26.6 pg (27.0-31.0) L 01/17/19 05:30 MCHC 32.9 g/dL (33.0-37.0) L 01/17/19 05:30 RDW 15.5 % (11.5-14.5) H 01/17/19 05:30 Plt Count 344 K/uL (130-400) 01/17/19 05:30 MPV 6.5 fl (7.2-11.7) L 01/17/19 05:30 Neut % (Auto) 63.1 % (50.0-75.0) 01/17/19 05:30 Lymph % (Auto) 22.9 % (20.0-40.0) 01/17/19 05:30 [place] % (Auto) 9.2 % (0.0-10.0) 01/17/19 05:30 Eos % (Auto) 4.3 % (0.0-4.0) H 01/17/19 05:30 Baso % (Auto) 0.5 % (0.0-2.0) 01/17/19 05:30 Neut # (Auto) 3.9 K/uL (1.8-7.0) 01/17/19 05:30 Lymph # (Auto) 1.4 K/uL (1.0-4.3) 01/17/19 05:30 [place] # (Auto) 0.6 K/uL (0.0-0.8) 01/17/19 05:30 Eos # (Auto) 0.3 K/uL (0.0-0.7) 01/17/19 05:30 Baso # (Auto) 0.0 K/uL (0.0-0.2) 01/17/19 05:30 PT 11.4 Seconds (9.8-13.1) 01/16/19 19:19 INR 1.0 01/16/19 19:19 APTT 36.0 Seconds (25.6-37.1) 01/16/19 19:19 Sodium 141 mmol/l (132-148) 01/17/19 05:30 Potassium 4.1 MMOL/L (3.6-5.0) 01/17/19 05:30 Chloride 101 mmol/L (98-107) 01/17/19 05:30 Carbon Dioxide 26 mmol/L (22-30) 01/17/19 05:30 Anion Gap 18 (10-20) 01/17/19 05:30 BUN 34 mg/dl (7-17) H 01/17/19 05:30 Creatinine 2.0 mg/dl (0.7-1.2) H 01/17/19 05:30 Est GFR ( Amer) 29 01/17/19 05:30 Est GFR (Non-Af Amer) 24 01/17/19 05:30 Random Glucose 101 mg/dL (65-105) 01/17/19 05:30 Calcium 8.9 mg/dL (8.4-10.2) 01/17/19 05:30 Phosphorus 4.7 mg/dl (2.5-4.5) H 01/17/19 05:30 Magnesium 2.4 MG/DL (1.6-2.3) H 01/17/19 05:30 Total Bilirubin 0.3 mg/dl (0.2-1.3) 01/17/19 05:30 AST 19 U/L (14-36) 01/17/19 05:30 ALT 36 U/L (9-52) 01/17/19 05:30 Alkaline Phosphatase 59 U/L (38-126) 01/17/19 05:30 Troponin I < 0.0120 ng/mL (0.00-0.120) 01/17/19 05:30 NT-Pro-B Natriuret Pep 249 pg/ml (0-900) 01/16/19 14:55 Total Protein 6.9 G/DL (6.3-8.2) 01/17/19 05:30 Albumin 3.8 g/dL (3.5-5.0) 01/17/19 05:30 Globulin 3.1 gm/dL (2.2-3.9) 01/17/19 05:30 Albumin/Globulin Ratio 1.2 (1.0-2.1) 01/17/19 05:30 Triglycerides 128 mg/DL (0-149) 01/17/19 05:30 Cholesterol 169 mg/dL (0-199) 01/17/19 05:30 LDL Cholesterol Direct 86 mg/dL (0-129) 01/17/19 05:30 HDL Cholesterol 45 MG/DL (30-70) 01/17/19 05:30 TSH 3rd Generation 2.27 mIU/ML (0.46-4.68) 01/17/19 05:30 Urine Color Yellow (YELLOW) 01/17/19 03:57 Urine Clarity Slighty-cloudy (Clear) 01/17/19 03:57 Urine pH 6.0 (5.0-8.0) 01/17/19 03:57 Ur Specific [place] 1.012 (1.003-1.030) 01/17/19 03:57 Urine Protein Negative mg/dL (NEGATIVE) 01/17/19 03:57 Urine Glucose (UA) Neg mg/dL (NEGATIVE) 01/17/19 03:57 Urine Ketones Negative mg/dL (NEGATIVE) 01/17/19 03:57 Urine Blood Moderate (NEGATIVE) 01/17/19 03:57 Urine Nitrate Positive (NEGATIVE) H 01/17/19 03:57 Urine Bilirubin Negative (NEGATIVE) 01/17/19 03:57 Urine Urobilinogen 0.2-1.0 mg/dL (0.2-1.0) 01/17/19 03:57 Ur Leukocyte Esterase Large Sandra/uL (Negative) 01/17/19 03:57 Urine RBC (Auto) 6 /hpf (0-3) H 01/17/19 03:57 Urine Microscopic WBC 35 /hpf (0-5) H 01/17/19 03:57 Urine Bacteria Mod (<OCC) H 01/17/19 03:57 - Hospital Course Hospital Course: 73 year old female with MHx significant for Asthma, COPD, Multiple Sclerosis with neurogenic bladder who does Self Urine Straight catheterization bid for Urinary Retention, CKD stage 3B, breast CA s/p right breast lumpectomy and radiation treatment in 2011 who was admitted yesterday 01/16/19 for evaluation and observation of chest pain radiating to left shoulder, the neck and jaw, occurring at home while she was at rest. Patient endorsed that she took aspirin 325 at home and the pain resolved by the time she arrived to the ED. In the ED patient was noted with fluctuating HR mostly bradyarrhythmia, although patient remained asymptomatic. Patient had a nuclear stress test 1 month back which was reported as being normal and similar test in 2012 also demonstrated no evidence of coronary artery disease. during her hospital course Troponin x2 are negative, EKG shows no ST-T abnormalities suggestive of myocardial ischemia were detected. Patient was evaluated by cardiology, as per cardio patient can be DC home with f/u by her PMD and her outpatient blueprint reader within 1 week. Patient has CKD, electrolyte has remained within normal range. UA noted with + Nitrates and Leukoesterase>Dx asymptomatic UTI, patient will be treated with omnicef oral outpatient and given consideration that patient has MS with h/o neurogenic bladder which required daily self bladder straight catheterization patient will be DC with daily home nursing service. Patient today is hemodinamically stable, denies GARCIA, CP, SOB, or other acute medical complaint. Patient verbalizes she wants to go home and understand and agree with medical plan. Discharge Exam - Head Exam Head Exam: NORMAL INSPECTION - Additional Findings Additional findings: - Constitutional Appears: No Acute Distress - Head Exam Head Exam: NORMAL INSPECTION - Eye Exam Eye Exam: Normal appearance - ENT Exam ENT Exam: Mucous Membranes Moist - Respiratory Exam Respiratory Exam: Clear to Auscultation Bilateral, NORMAL BREATHING PATTERN. absent: Chest Wall Tenderness, Rhonchi, Wheezes - Cardiovascular Exam Cardiovascular Exam: REGULAR RHYTHM, +S1, +S2 - GI/Abdominal Exam GI & Abdominal Exam: Normal Bowel Sounds, Soft. absent: Tenderness - Extremities Exam Extremities exam: Positive for: normal inspection. Negative for: calf tenderness, pedal edema - Neurological Exam Neurological exam: Alert, Oriented x3 - Psychiatric Exam Psychiatric exam: Normal Affect, Normal Mood - Skin Skin Exam: Normal Color Discharge Plan - Discharge Medications Prescriptions: Cefdinir [Omnicef] 300 mg PO BID #10 cap - Follow Up Plan Condition: FAIR Disposition: HOME/ ROUTINE Instructions: Chest Pain (DC), Neurogenic Bladder, Adult (DC) Additional Instructions: ff up with Cardio in 1-2 wks ff up with Dr Vanessa in 1 wk ff up Urine c/s result with Dr Vanessa Home RN and PT - RN to instruct pt proper on Straight Catheterization Referrals: Trevon Reed MD [Staff Provider] - Braden Vanessa MD [Family Provider] - <April Dmaon Madina - Last Filed: 01/17/19 15:55> Provider - Provider Date of Admission: 01/16/19 18:30 Attending physician: Caterina Fox DO Consults: 01/16/19 19:01 Cardiology Consult Routine Comment: Consulting Provider: Trevon Reed V Consulting Physician: Trevon Reed V Reason for Consult: chest pain 01/17/19 08:26 Pulmonology Consult Routine Comment: Consulting Provider: Braden Vanessa Consulting Physician: Braden Vanessa Reason for Consult: COPD Hospital Course - Lab Results Lab Results: Most Recent Lab Values WBC 6.1 K/uL (4.8-10.8) 01/17/19 05:30 RBC 4.69 Mil/uL (3.80-5.20) 01/17/19 05:30 Hgb 12.5 g/dL (12.0-16.0) 01/17/19 05:30 Hct 38.0 % (34.0-47.0) 01/17/19 05:30 MCV 80.9 fl (81.0-99.0) L 01/17/19 05:30 MCH 26.6 pg (27.0-31.0) L 01/17/19 05:30 MCHC 32.9 g/dL (33.0-37.0) L 01/17/19 05:30 RDW 15.5 % (11.5-14.5) H 01/17/19 05:30 Plt Count 344 K/uL (130-400) 01/17/19 05:30 MPV 6.5 fl (7.2-11.7) L 01/17/19 05:30 Neut % (Auto) 63.1 % (50.0-75.0) 01/17/19 05:30 Lymph % (Auto) 22.9 % (20.0-40.0) 01/17/19 05:30 [place] % (Auto) 9.2 % (0.0-10.0) 01/17/19 05:30 Eos % (Auto) 4.3 % (0.0-4.0) H 01/17/19 05:30 Baso % (Auto) 0.5 % (0.0-2.0) 01/17/19 05:30 Neut # (Auto) 3.9 K/uL (1.8-7.0) 01/17/19 05:30 Lymph # (Auto) 1.4 K/uL (1.0-4.3) 01/17/19 05:30 [place] # (Auto) 0.6 K/uL (0.0-0.8) 01/17/19 05:30 Eos # (Auto) 0.3 K/uL (0.0-0.7) 01/17/19 05:30 Baso # (Auto) 0.0 K/uL (0.0-0.2) 01/17/19 05:30 PT 11.4 Seconds (9.8-13.1) 01/16/19 19:19 INR 1.0 01/16/19 19:19 APTT 36.0 Seconds (25.6-37.1) 01/16/19 19:19 Sodium 141 mmol/l (132-148) 01/17/19 05:30 Potassium 4.1 MMOL/L (3.6-5.0) 01/17/19 05:30 Chloride 101 mmol/L (98-107) 01/17/19 05:30 Carbon Dioxide 26 mmol/L (22-30) 01/17/19 05:30 Anion Gap 18 (10-20) 01/17/19 05:30 BUN 34 mg/dl (7-17) H 01/17/19 05:30 Creatinine 2.0 mg/dl (0.7-1.2) H 01/17/19 05:30 Est GFR ( Amer) 29 01/17/19 05:30 Est GFR (Non-Af Amer) 24 01/17/19 05:30 Random Glucose 101 mg/dL (65-105) 01/17/19 05:30 Hemoglobin A1c 5.9 % (4.2-6.5) 01/17/19 05:30 Calcium 8.9 mg/dL (8.4-10.2) 01/17/19 05:30 Phosphorus 4.7 mg/dl (2.5-4.5) H 01/17/19 05:30 Magnesium 2.4 MG/DL (1.6-2.3) H 01/17/19 05:30 Total Bilirubin 0.3 mg/dl (0.2-1.3) 01/17/19 05:30 AST 19 U/L (14-36) 01/17/19 05:30 ALT 36 U/L (9-52) 01/17/19 05:30 Alkaline Phosphatase 59 U/L (38-126) 01/17/19 05:30 Troponin I < 0.0120 ng/mL (0.00-0.120) 01/17/19 05:30 NT-Pro-B Natriuret Pep 249 pg/ml (0-900) 01/16/19 14:55 Total Protein 6.9 G/DL (6.3-8.2) 01/17/19 05:30 Albumin 3.8 g/dL (3.5-5.0) 01/17/19 05:30 Globulin 3.1 gm/dL (2.2-3.9) 01/17/19 05:30 Albumin/Globulin Ratio 1.2 (1.0-2.1) 01/17/19 05:30 Triglycerides 128 mg/DL (0-149) 01/17/19 05:30 Cholesterol 169 mg/dL (0-199) 01/17/19 05:30 LDL Cholesterol Direct 86 mg/dL (0-129) 01/17/19 05:30 HDL Cholesterol 45 MG/DL (30-70) 01/17/19 05:30 TSH 3rd Generation 2.27 mIU/ML (0.46-4.68) 01/17/19 05:30 Urine Color Yellow (YELLOW) 01/17/19 03:57 Urine Clarity Slighty-cloudy (Clear) 01/17/19 03:57 Urine pH 6.0 (5.0-8.0) 01/17/19 03:57 Ur Specific [place] 1.012 (1.003-1.030) 01/17/19 03:57 Urine Protein Negative mg/dL (NEGATIVE) 01/17/19 03:57 Urine Glucose (UA) Neg mg/dL (NEGATIVE) 01/17/19 03:57 Urine Ketones Negative mg/dL (NEGATIVE) 01/17/19 03:57 Urine Blood Moderate (NEGATIVE) 01/17/19 03:57 Urine Nitrate Positive (NEGATIVE) H 01/17/19 03:57 Urine Bilirubin Negative (NEGATIVE) 01/17/19 03:57 Urine Urobilinogen 0.2-1.0 mg/dL (0.2-1.0) 01/17/19 03:57 Ur Leukocyte Esterase Large Sandra/uL (Negative) 01/17/19 03:57 Urine RBC (Auto) 6 /hpf (0-3) H 01/17/19 03:57 Urine Microscopic WBC 35 /hpf (0-5) H 01/17/19 03:57 Urine Bacteria Mod (<OCC) H 01/17/19 03:57 Attending/Attestation - Attestation I have personally seen and examined this patient.: Yes I have fully participated in the care of the patient.: Yes I have reviewed all pertinent clinical information, including history, physical exam and plan: Yes
[2019-01-17] MEDS ORDERED: Cefdinir 300 MG CAP PO ONE (16:05)
[2019-01-17 20:22] VITALS: BP 118/65; PULSE 84; TEMP 98.4; O2SAT 96
[2019-01-17] MEDS ORDERED: NALTREXONE PO SCH (22:00)
== END 2019-01-17 22:15 | disposition home or self-care (01) ==
LOC: H.ER 14:16 → INTOOBSV 18:30 → H.ERHOLD 18:30 → H.TEL 21:33
PROVIDERS: ADMIT Student in an Organized Health Care Education/Training Program; ATTEND Student in an Organized Health Care Education/Training Program
DX: R07.89 Other chest pain (principal); G35 Multiple sclerosis; N31.9 Neuromuscular dysfunction of bladder, unspecified; I49.8 Other specified cardiac arrhythmias; N39.0 Urinary tract infection, site not specified; N18.3 Chronic kidney disease, stage 3 (moderate); E03.9 Hypothyroidism, unspecified; J44.9 Chronic obstructive pulmonary disease, unspecified; F41.9 Anxiety disorder, unspecified; Z85.3 Personal history of malignant neoplasm of breast; Z85.41 Personal history of malignant neoplasm of cervix uteri; Z90.11 Acquired absence of right breast and nipple; Z90.710 Acquired absence of both cervix and uterus; Z92.21 Personal history of antineoplastic chemotherapy; Z92.3 Personal history of irradiation; Z99.3 Dependence on wheelchair; Z96.651 Presence of right artificial knee joint; Z87.891 Personal history of nicotine dependence; M25.512 Pain in left shoulder; Z91.013 Allergy to seafood
CPT/HCPCS: 36415; 71045; 80053; 80061; 81003; 83036; 83735; 83880; 84100; 84443; 84484; 85025; 85610; 85730; 87086; 93005; 94640; 97162; 99284; G0378; G8978; G8979; J1650

== ENCOUNTER 2019-03-06 12:22 | Observation (INO) | payer MEDICARE ==
[2019-03-06] MEDS ORDERED: Sodium Chloride 0.9% 1,000 ML IV STA (13:41)
[2019-03-06 14:48] LABS: VENOUS BLOOD GAS BASE EXCESS 3.2 mmol/L (0.0-2.0); VENOUS BLOOD GAS PCO2 42 mmHg (40-60); VENOUS BLOOD GAS PO2 64 mm/Hg (30-55); VENOUS BLOOD PH 7.43 (7.32-7.43)
[2019-03-06] MEDS ORDERED: Albuterol-Ipratrop 3 mg / 0.5 (3 ml) UD ONE (14:51)
[2019-03-06 15:04] LABS: BASO % 0.3 % (0.0-2.0); EOS % 0.4 % (0.0-4.0); HEMOGLOBIN 14.5 g/dL (12.0-16.0); LYMPH # 0.5 K/uL (1.0-4.3); LYMPH % 7.5 % (20.0-40.0); MEAN CELL VOLUME 80.9 fl (81.0-99.0); MEAN CORPUSCULAR HEMOGLOBIN 26.6 pg (27.0-31.0); MEAN CORPUSCULAR HGB CONC 32.9 g/dL (33.0-37.0); MEAN PLATELET VOLUME 7.2 fl (7.2-11.7); MONO # 0.6 K/uL (0.0-0.8); MONO % 8.8 % (0.0-10.0); NEUT # 5.9 K/uL (1.8-7.0); PLATELET COUNT 264 K/uL (130-400); RBC 5.44 Mil/uL (3.80-5.20); RED CELL DISTRIBUTION WIDTH 16.3 % (11.5-14.5); WHITE BLOOD COUNT 7.1 K/uL (4.8-10.8)
[2019-03-06 15:10] LABS: ALB/GLOB RATIO 1.4 (1.0-2.1); ALBUMIN 4.4 g/dL (3.5-5.0); CALCIUM 8.8 mg/dL (8.4-10.2)
--- NOTE | 2019-03-06 15:28 | ED PDOC ---
HPI: General Adult Time Seen by Provider: 03/06/19 12:35 Chief Complaint (Nursing): Fever Chief Complaint (Provider): Fever, Nausea, Vomiting History Per: Patient History/Exam Limitations: no limitations Onset/Duration Of Symptoms: Hrs Current Symptoms Are (Timing): Still Present Additional Complaint(s): 73 year old female with a history of breast CA, chronic kidney disease, urinary retention, and hypothyroidism as well as multiple sclerosis and difficulty ambulating as a result presents to the ED for an evaluation of nausea, vomiting and fever onset in the morning. who is at bedside also notes that she had cloudy urine as well. Patient reports she had a right breast lumpectomy and radiation in 2011. Otherwise, she denies antipyretics or any other complaints. PMD: Braden Vanessa Past Medical History Reviewed: Historical Data, Nursing Documentation, Vital Signs Vital Signs: Last Vital Signs Temp 99.5 F 03/06/19 14:51 Pulse 108 H 03/06/19 12:24 Resp 18 03/06/19 12:24 BP 152/90 H 03/06/19 12:24 Pulse Ox 99 03/06/19 12:24 - Medical History PMH: Anxiety, Asthma, Bronchitis, COPD, Hypothyroidism, Malignancy (breast/cervical, in remission for both), Multiple Sclerosis, Pancreatitis, Pneumonia, Chronic Kidney Disease Denies: HIV - Surgical History Other surgeries: right breast lumpectomy in 2011 - Family History Family History: States: Unknown Family Hx - Social History Current smoker - smoking cessation education provided: No Alcohol: None Drugs: Denies - Home Medications Home Medications: Ambulatory Orders Medication Instructions Recorded Liothyronine Sodium [Cytomel] 10 mcg PO DAILY 05/11/16 Alprazolam [Xanax] 0.5 mg PO TID PRN 03/06/18 Letrozole [Femara] 2.5 mg PO HS 03/06/18 Albuterol 0.083% [Albuterol 0.083% 3 ml IH Q6 PRN 01/16/19 Inhal Renata (2.5 mg/3 ml) UD] Albuterol Sulfate [Ventolin Hfa] 2 puff IH Q6 PRN 01/16/19 Furosemide [Lasix] 40 mg PO DAILY PRN 01/16/19 Naltrexone [Revia] 4.5 mg PO HS 01/16/19 Thyroid,Pork [[place] Thyroid] 30 mg PO DAILY 01/16/19 - Allergies Allergies/Adverse Reactions: Allergies Allergy/AdvReac Type Severity Reaction Status Date / Time ciprofibrate Allergy unknown Verified 01/16/19 14:26 fluticasone Allergy ANAPHYLAXIS Verified 01/16/19 14:26 [From Advair Diskus] ofloxacin [From Floxin] Allergy unknown Verified 01/16/19 14:26 salmeterol Allergy DIZZINESS Verified 01/16/19 14:26 [From Advair Diskus] shellfish derived Allergy ANAPHYLAXIS Verified 01/16/19 14:26 Review of Systems ROS Statement: Except As Marked, All Systems Reviewed And Found Negative Constitutional: Positive for: Fever. Negative for: Chills Cardiovascular: Negative for: Chest Pain Respiratory: Negative for: Shortness of Breath Gastrointestinal: Positive for: Nausea, Vomiting Physical Exam - Reviewed Nursing Documentation Reviewed: Yes Vital Signs Reviewed: Yes - Physical Exam Appears: Positive for: Well, Non-toxic, No Acute Distress Head Exam: Positive for: ATRAUMATIC, NORMAL INSPECTION, NORMOCEPHALIC Skin: Positive for: Normal Color, Warm, DRY Eye Exam: Positive for: EOMI, Normal appearance, PERRL ENT: Positive for: Normal ENT Inspection Neck: Positive for: Normal, Painless ROM Cardiovascular/Chest: Positive for: Regular Rate, Rhythm Respiratory: Positive for: CNT, Normal Breath Sounds Gastrointestinal/Abdominal: Positive for: Normal Exam, Soft Back: Positive for: Normal Inspection Extremity: Positive for: Normal ROM Neurological/Psych: Positive for: Awake, Alert, Normal Tone, Oriented (x3) - Laboratory Results Result Diagrams: 03/06/19 15:00 03/06/19 14:30 Lab Results: pO2 64 mm/Hg (30-55) H 03/06/19 14:41 VBG pH 7.43 (7.32-7.43) 03/06/19 14:41 VBG pCO2 42 mmHg (40-60) 03/06/19 14:41 VBG HCO3 27.3 mmol/L 03/06/19 14:41 VBG Total CO2 29.2 mmol/L (22-28) H 03/06/19 14:41 VBG O2 Sat (Calc) 95.9 % (40-65) H 03/06/19 14:41 VBG Base Excess 3.2 mmol/L (0.0-2.0) H 03/06/19 14:41 VBG Potassium 4.9 mmol/L (3.6-5.2) 03/06/19 14:41 Sodium 128.0 mmol/L (132-148) L 03/06/19 14:41 Chloride 102.0 mmol/L (98-107) 03/06/19 14:41 Glucose 146 mg/dL (65-105) H 03/06/19 14:41 Lactate 1.0 mmol/L (0.7-2.1) 03/06/19 14:41 FiO2 21.0 % 03/06/19 14:41 - ECG O2 Sat by Pulse Oximetry: 99 (RA) Pulse Ox Interpretation: Normal Medical Decision Making Medical Decision Making: Time: 13:39 Plan: nausea, cloudy urine rule out UTI sepsis VBG shock CMP CBC w/ differential Normal saline 999 mls/hr Zofran 4mg Acetaminophen 650mg Urine C&S UA Blood culture Reevaluation 14:50 Patient refuses IV fluids, Tylenols and Zofran temp came down. 16:[address] Fox hospitalist who accepted patient for admission. I spoke to patient and her family, answering any questions or concerns. 17:01 CXR FINDINGS: LUNGS: No active pulmonary disease. PLEURA: No significant pleural effusion identified, no pneumothorax apparent. CARDIOVASCULAR: No atherosclerotic calcification present Normal. OSSEOUS STRUCTURES: No significant abnormalities. VISUALIZED UPPER ABDOMEN: Normal. OTHER FINDINGS: None. IMPRESSION: No active disease. No significant interval change compared to the prior examination(s). Scribe Attestation: Documented by Hunter Hernandez, acting as a scribe for Sarah Cerda MD. Provider Scribe Attestation: All medical record entries made by the Scribe were at my direction and personally dictated by me. I have reviewed the chart and agree that the record accurately reflects my personal performance of the history, physical exam, medical decision making, and the department course for this patient. I have also personally directed, reviewed, and agree with the discharge instructions and disposition. Disposition - Clinical Impression Clinical Impression: Fever in adult, UTI (urinary tract infection) - Patient ED Disposition Is Patient to be Admitted: Yes Counseled Patient/Family Regarding: Studies Performed, Diagnosis - Disposition Disposition Time: 14:50 Condition: STABLE
[2019-03-06] MEDS ORDERED: Povidone Iodine Oint 10% Foilpak UD ONE (15:53)
[2019-03-06 15:58] LABS: BANDS 3 % (0-2); LYMPHOCYTE 7 % (20-50); MONOCYTE 5 % (0-10); NEUTROPHIL 84 % (42-75); REACTIVE LYMPHOCYTES 1 % (0-0); TOTAL CELLS COUNTED 100
[2019-03-06 15:59] LABS: ANISOCYTOSIS SLIGHT; PLATELET ESTIMATE NORMAL (NORMAL)
[2019-03-06] MEDS ORDERED: Albuterol-Ipratrop 3 mg / 0.5 (3 ml) UD INH STA (16:24)
[2019-03-06 16:38] LABS: SQUAMOUS EPITHIAL < 1 /hpf (0-5); URINE BACTERIA OCC (<OCC); URINE BILIRUBIN NEGATIVE (NEGATIVE); URINE BLOOD SMALL (NEGATIVE); URINE CLARITY CLOUDY (Clear); URINE COLOR YELLOW (YELLOW); URINE GLUCOSE (UA) NEG (NEGATIVE); URINE LEUKOCYTE ESTERASE MOD Leu/uL (Negative); URINE PROTEIN 100 mg/dL (NEGATIVE); URINE UROBILINOGEN 0.2-1.0 mg/dL (0.2-1.0)
--- NOTE | 2019-03-06 17:05 | RAD ---
Date of service: 03/06/2019 HISTORY: Shortness of breath. COMPARISON: 01/16/2019. FINDINGS: LUNGS: No active pulmonary disease. PLEURA: No significant pleural effusion identified, no pneumothorax apparent. CARDIOVASCULAR: No atherosclerotic calcification present Normal. OSSEOUS STRUCTURES: No significant abnormalities. VISUALIZED UPPER ABDOMEN: Normal. OTHER FINDINGS: None. IMPRESSION: No active disease. No significant interval change compared to the prior examination(s).
--- NOTE | 2019-03-06 18:07 | CP.PCM.HP ---
History of Present Illness - History of Present Illness History of Present Illness: 73 year old female with PMHx significant for Asthma, Hypothyroidism, COPD, Multiple Sclerosis (does self Urine Straight catheterization BID for Urinary Retention), CKD stage 3, breast CA s/p right breast lumpectomy and radiation joann atment admitted for recurrent UTI. Patient and who is at bedside states that she started with nausea and several episodes of nbnb vomiting this morning, also patient was febrile today, endorses that urine this am was turbid and foul smelling but she denies denies dysuria, urgency or abd pain pain. She reports occasional "urine leakage". While in the ED she was also noted to be wheezing. She received Albuterol Nebulizer treatment. Otherwise she denies sob, CP, chills, palpitations, cough, no sick contacts. ROS: all 12 systems reviewed and negative except mentioned in HPI PMD: Dr. Vanessa PMHx: Asthma, MS, Neurogenic bladder secondary to MS, Breast Ca, COPD SHx: Knee surgery in past; Right breast lumpectomy, cataract Allergies: Codeine, fish, pentazocine, ofloxacin, fluticasone, sameterol Medications: As per med rec Family Hx: Reviewed, not contributory Social Hx: Lives with family. Social ETOH. Former smoker Surrogate Decision Maker: , info on chart Present on Admission - Present on Admission Any Indicators Present on Admission: No Past Patient History - Infectious Disease Hx of Infectious Diseases: None - Tetanus Immunizations Tetanus Immunization: Unknown - Past Medical History & Family History Past Medical History?: Yes - Past Social History Alcohol: None Drugs: Denies - CARDIAC Hx Cardiac Disorders: No - PULMONARY Hx Asthma: Yes Hx Bronchitis: Yes Hx Chronic Obstructive Pulmonary Disease (COPD): Yes Hx Pneumonia: Yes - NEUROLOGICAL Hx Multiple Sclerosis: Yes - HEENT Hx HEENT Problems: No - RENAL Hx Chronic Kidney Disease: Yes - ENDOCRINE/METABOLIC Hx Hypothyroidism: Yes - HEMATOLOGICAL/ONCOLOGICAL Hx Human Immunodeficiency Virus (HIV): No - INTEGUMENTARY Hx Dermatological Problems: No - MUSCULOSKELETAL/RHEUMATOLOGICAL Hx Musculoskeletal Disorders: Yes Hx Degenerative Joint Disease: Yes Hx Falls: Yes Other/Comment: wheelchair bound - GASTROINTESTINAL Hx Pancreatitis: Yes - GENITOURINARY/GYNECOLOGICAL Hx Cervical Cancer: Yes Hx Incontinence: Yes Hx Uterine Cancer: Yes Hx Urinary Tract Infection: Yes - PSYCHIATRIC Hx Anxiety: Yes - SURGICAL HISTORY Hx Breast Biopsy: Yes Hx Cataract Extraction: Yes Hx Hysterectomy: Yes Hx Joint Replacement: Yes (Right knee) Other/Comment: Right breast Lumpectomy - ANESTHESIA Hx Anesthesia: Yes Hx Anesthesia Reactions: No Meds Allergies/Adverse Reactions: Allergies Allergy/AdvReac Type Severity Reaction Status Date / Time ciprofibrate Allergy unknown Verified 01/16/19 14:26 fluticasone Allergy ANAPHYLAXIS Verified 01/16/19 14:26 [From Advair Diskus] ofloxacin [From Floxin] Allergy unknown Verified 01/16/19 14:26 salmeterol Allergy DIZZINESS Verified 01/16/19 14:26 [From Advair Diskus] shellfish derived Allergy ANAPHYLAXIS Verified 01/16/19 14:26 Physical Exam - Constitutional Appears: No Acute Distress - Head Exam Head Exam: NORMAL INSPECTION - Eye Exam Eye Exam: EOMI, PERRL - ENT Exam ENT Exam: Mucous Membranes Moist - Neck Exam Neck exam: Positive for: Full Rom. Negative for: Lymphadenopathy, Tenderness, Thyromegaly - Respiratory Exam Respiratory Exam: Clear to Auscultation Bilateral, NORMAL BREATHING PATTERN. absent: Rales, Wheezes, Respiratory Distress - Cardiovascular Exam Cardiovascular Exam: REGULAR RHYTHM, +S1, +S2. absent: Tachycardia, Systolic Murmur - GI/Abdominal Exam GI & Abdominal Exam: Normal Bowel Sounds, Soft. absent: Distended, Tenderness - Extremities Exam Extremities exam: Negative for: calf tenderness, pedal edema - Back Exam Back exam: absent: CVA tenderness (L), CVA tenderness (R) - Neurological Exam Neurological exam: Alert, CN II-XII Intact, Oriented x3 - Psychiatric Exam Psychiatric exam: Normal Affect - Skin Skin Exam: Dry, Normal Color, Warm Results - Vital Signs Recent Vital Signs: Last Vital Signs Temp 99.5 F 03/06/19 14:51 Pulse 108 H 03/06/19 12:24 Resp 18 03/06/19 12:24 BP 152/90 H 03/06/19 12:24 Pulse Ox 99 03/06/19 17:29 - Labs Result Diagrams: 03/06/19 15:00 03/06/19 14:30 Labs: Laboratory Results - last 24 hr 03/06/19 03/06/19 03/06/19 14:30 14:41 15:00 WBC 7.1 RBC 5.44 H Hgb 14.5 D Hct 44.0 MCV 80.9 L MCH 26.6 L MCHC 32.9 L RDW 16.3 H Plt Count 264 MPV 7.2 Neut % (Auto) 83.0 H Lymph % (Auto) 7.5 L [place] % (Auto) 8.8 Eos % (Auto) 0.4 Baso % (Auto) 0.3 Neut # (Auto) 5.9 Lymph # (Auto) 0.5 L [place] # (Auto) 0.6 Eos # (Auto) 0.0 Baso # (Auto) 0.0 Neutrophils % (Manual) 84 H Band Neutrophils % 3 H Lymphocytes % (Manual) 7 L Reactive Lymphs % 1 H Monocytes % (Manual) 5 Platelet Estimate Normal Anisocytosis (manual) Slight pO2 64 H VBG pH 7.43 VBG pCO2 42 VBG HCO3 27.3 VBG Total CO2 29.2 H VBG O2 Sat (Calc) 95.9 H VBG Base Excess 3.2 H VBG Potassium 4.9 Glucose 146 H Lactate 1.0 FiO2 21.0 Sodium 137 128.0 L Potassium 4.5 Chloride 102 102.0 Carbon Dioxide 23 Anion Gap 17 BUN 30 H Creatinine 1.8 H Est GFR ( Amer) 33 Est GFR (Non-Af Amer) 27 Random Glucose 141 H Calcium 8.8 Total Bilirubin 0.7 AST 33 ALT 33 Alkaline Phosphatase 83 Total Protein 7.6 Albumin 4.4 Globulin 3.2 Albumin/Globulin Ratio 1.4 Venous Blood Potassium 4.9 Urine Color Urine Clarity Urine pH Ur Specific [place] Urine Protein Urine Glucose (UA) Urine Ketones Urine Blood Urine Nitrate Urine Bilirubin Urine Urobilinogen Ur Leukocyte Esterase Urine RBC (Auto) Urine Microscopic WBC Ur Squamous Epith Cells Urine Bacteria 03/06/19 16:13 WBC RBC Hgb Hct MCV MCH MCHC RDW Plt Count MPV Neut % (Auto) Lymph % (Auto) [place] % (Auto) Eos % (Auto) Baso % (Auto) Neut # (Auto) Lymph # (Auto) [place] # (Auto) Eos # (Auto) Baso # (Auto) Neutrophils % (Manual) Band Neutrophils % Lymphocytes % (Manual) Reactive Lymphs % Monocytes % (Manual) Platelet Estimate Anisocytosis (manual) pO2 VBG pH VBG pCO2 VBG HCO3 VBG Total CO2 VBG O2 Sat (Calc) VBG Base Excess VBG Potassium Glucose Lactate FiO2 Sodium Potassium Chloride Carbon Dioxide Anion Gap BUN Creatinine Est GFR ( Amer) Est GFR (Non-Af Amer) Random Glucose Calcium Total Bilirubin AST ALT Alkaline Phosphatase Total Protein Albumin Globulin Albumin/Globulin Ratio Venous Blood Potassium Urine Color Yellow Urine Clarity Cloudy Urine pH 6.0 Ur Specific [place] 1.012 Urine Protein 100 Urine Glucose (UA) Neg Urine Ketones Negative Urine Blood Small Urine Nitrate Negative Urine Bilirubin Negative Urine Urobilinogen 0.2-1.0 Ur Leukocyte Esterase Mod Urine RBC (Auto) 22 H Urine Microscopic WBC 28 H Ur Squamous Epith Cells < 1 Urine Bacteria Occ H Assessment & Plan - Assessment and Plan (Free Text) Assessment: 73 yo female with extensive PMH and recurrent UTI admitted due to UTI. Plan: UTI. - Admit med/surg - VSS - WBC wnl - Continue ceftriaxone - Tylenol prn for fever - Hold nephrotoxic medications - F/u Cultures (results from Tuesday being faxed) - labs in am CKD, stage 4 - BUN/Cr: 30/1.8 - GFR 24 - Hold nephrotoxic medications Asthma - chronic, controlled - CXR negative for lung disease - continue home meds Hypothyroidism - chronic, controlled - TSH 02/07/19: 2.27 - continue home meds DVT PPx - SQ heparin Case discussed with Dr Fox.
[2019-03-06] MEDS ORDERED: cefTRIAXone (Rocephin) 1 gm Inj ONE (18:51)
[2019-03-06 20:59] VITALS: BMI 27.3
[2019-03-06] MEDS: Albuterol HFA 90 mcg/actuation (8 g) IH PRN (23:37)
[2019-03-07] MEDS: Albuterol 0.083% Inhal Sol (2.5 mg/3 mL) UD IH PRN ×2 (02:08→14:20)
[2019-03-07 06:54] LABS: BASO % 0.4 % (0.0-2.0); EOS # 0.2 K/uL (0.0-0.7); EOS % 3.7 % (0.0-4.0); HEMOGLOBIN 12.8 g/dL (12.0-16.0); LYMPH # 1.6 K/uL (1.0-4.3); LYMPH % 24.8 % (20.0-40.0); MEAN CELL VOLUME 81.8 fl (81.0-99.0); MEAN CORPUSCULAR HEMOGLOBIN 26.8 pg (27.0-31.0); MEAN CORPUSCULAR HGB CONC 32.8 g/dL (33.0-37.0); MEAN PLATELET VOLUME 7.1 fl (7.2-11.7); MONO % 14.8 % (0.0-10.0); NEUT # 3.7 K/uL (1.8-7.0); NEUT % 56.3 % (50.0-75.0); NRBC % 0.1 % (0.0-0.0); RBC 4.78 Mil/uL (3.80-5.20); RED CELL DISTRIBUTION WIDTH 16.2 % (11.5-14.5); WHITE BLOOD COUNT 6.7 K/uL (4.8-10.8)
[2019-03-07 07:10] LABS: ALB/GLOB RATIO 1.4 (1.0-2.1); ALBUMIN 3.9 g/dL (3.5-5.0); CALCIUM 8.3 mg/dL (8.4-10.2)
[2019-03-07 08:58] VITALS: BP 134/84; PULSE 76; RESP 20; TEMP 98.4; O2SAT 98
[2019-03-07] MEDS ORDERED: Lactobacillus Acidophilus 500 MU Cap PO SCH (09:00)
[2019-03-07] MEDS ORDERED: THYROID 30 MG TAB PO SCH (09:00)
[2019-03-07] MEDS: Albuterol HFA 90 mcg/actuation (8 g) IH PRN (09:42)
--- NOTE | 2019-03-07 11:10 | CP.PCM.DIS ---
Provider - Provider Date of Admission: 03/06/19 16:52 Attending physician: Caterina Fox DO Primary care physician: Dr. Vanessa Consults: 03/06/19 23:30 Nursing Referral for Wound Care Routine Comment: Physician Instructions: Reason For Exam: sacral redness Time Spent in preparation of Discharge (in minutes): 10 Diagnosis - Discharge Diagnosis (1) UTI (urinary tract infection) Status: Acute Priority: High Comment: acute. urine cx E coli sensitive to Keflex. D/c home with Keflex for 5 more days. Outpt follow up with PMD in 1 week (2) DANII (acute kidney injury) Status: Acute Comment: likely due to urinary retention (3) CKD (chronic kidney disease), stage IV Status: Acute Comment: chronic controlled (4) Tanner catheter in place Status: Acute (5) Multiple sclerosis Status: Chronic Priority: High Comment: chronic controlled (6) Neurogenic bladder Status: Chronic Priority: High Comment: chronic controlled (7) Urinary retention Status: Chronic Priority: High Comment: chronic controlled Hospital Course - Lab Results Lab Results: Most Recent Lab Values WBC 6.7 K/uL (4.8-10.8) 03/07/19 04:41 RBC 4.78 Mil/uL (3.80-5.20) 03/07/19 04:41 Hgb 12.8 g/dL (12.0-16.0) 03/07/19 04:41 Hct 39.1 % (34.0-47.0) 03/07/19 04:41 MCV 81.8 fl (81.0-99.0) 03/07/19 04:41 MCH 26.8 pg (27.0-31.0) L 03/07/19 04:41 MCHC 32.8 g/dL (33.0-37.0) L 03/07/19 04:41 RDW 16.2 % (11.5-14.5) H 03/07/19 04:41 Plt Count 248 K/uL (130-400) 03/07/19 04:41 MPV 7.1 fl (7.2-11.7) L 03/07/19 04:41 Neut % (Auto) 56.3 % (50.0-75.0) 03/07/19 04:41 Lymph % (Auto) 24.8 % (20.0-40.0) 03/07/19 04:41 [place] % (Auto) 14.8 % (0.0-10.0) H 03/07/19 04:41 Eos % (Auto) 3.7 % (0.0-4.0) 03/07/19 04:41 Baso % (Auto) 0.4 % (0.0-2.0) 03/07/19 04:41 Neut # (Auto) 3.7 K/uL (1.8-7.0) 03/07/19 04:41 Lymph # (Auto) 1.6 K/uL (1.0-4.3) 03/07/19 04:41 [place] # (Auto) 1.0 K/uL (0.0-0.8) H 03/07/19 04:41 Eos # (Auto) 0.2 K/uL (0.0-0.7) 03/07/19 04:41 Baso # (Auto) 0.0 K/uL (0.0-0.2) 03/07/19 04:41 Neutrophils % (Manual) 84 % (42-75) H 03/06/19 15:00 Band Neutrophils % 3 % (0-2) H 03/06/19 15:00 Lymphocytes % (Manual) 7 % (20-50) L 03/06/19 15:00 Reactive Lymphs % 1 % (0-0) H 03/06/19 15:00 Monocytes % (Manual) 5 % (0-10) 03/06/19 15:00 Platelet Estimate Normal (NORMAL) 03/06/19 15:00 Anisocytosis (manual) Slight 03/06/19 15:00 pO2 64 mm/Hg (30-55) H 03/06/19 14:41 VBG pH 7.43 (7.32-7.43) 03/06/19 14:41 VBG pCO2 42 mmHg (40-60) 03/06/19 14:41 VBG HCO3 27.3 mmol/L 03/06/19 14:41 VBG Total CO2 29.2 mmol/L (22-28) H 03/06/19 14:41 VBG O2 Sat (Calc) 95.9 % (40-65) H 03/06/19 14:41 VBG Base Excess 3.2 mmol/L (0.0-2.0) H 03/06/19 14:41 VBG Potassium 4.9 mmol/L (3.6-5.2) 03/06/19 14:41 Sodium 128.0 mmol/L (132-148) L 03/06/19 14:41 Chloride 102.0 mmol/L (98-107) 03/06/19 14:41 Glucose 146 mg/dL (65-105) H 03/06/19 14:41 Lactate 1.0 mmol/L (0.7-2.1) 03/06/19 14:41 FiO2 21.0 % 03/06/19 14:41 Sodium 137 mmol/l (132-148) 03/07/19 04:41 Potassium 3.7 MMOL/L (3.6-5.0) 03/07/19 04:41 Chloride 101 mmol/L (98-107) 03/07/19 04:41 Carbon Dioxide 27 mmol/L (22-30) 03/07/19 04:41 Anion Gap 13 (10-20) 03/07/19 04:41 BUN 37 mg/dl (7-17) H 03/07/19 04:41 Creatinine 1.9 mg/dl (0.7-1.2) H 03/07/19 04:41 Est GFR ( Amer) 31 03/07/19 04:41 Est GFR (Non-Af Amer) 26 03/07/19 04:41 Random Glucose 142 mg/dL (65-105) H 03/07/19 04:41 Calcium 8.3 mg/dL (8.4-10.2) L 03/07/19 04:41 Total Bilirubin 0.3 mg/dl (0.2-1.3) 03/07/19 04:41 AST 35 U/L (14-36) 03/07/19 04:41 ALT 34 U/L (9-52) 03/07/19 04:41 Alkaline Phosphatase 61 U/L (38-126) 03/07/19 04:41 Total Protein 6.7 G/DL (6.3-8.2) 03/07/19 04:41 Albumin 3.9 g/dL (3.5-5.0) 03/07/19 04:41 Globulin 2.8 gm/dL (2.2-3.9) 03/07/19 04:41 Albumin/Globulin Ratio 1.4 (1.0-2.1) 03/07/19 04:41 Venous Blood Potassium 4.9 mmol/L (3.6-5.2) 03/06/19 14:41 Urine Color Yellow (YELLOW) 03/06/19 16:13 Urine Clarity Cloudy (Clear) 03/06/19 16:13 Urine pH 6.0 (5.0-8.0) 03/06/19 16:13 Ur Specific [place] 1.012 (1.003-1.030) 03/06/19 16:13 Urine Protein 100 mg/dL (NEGATIVE) 03/06/19 16:13 Urine Glucose (UA) Neg mg/dL (NEGATIVE) 03/06/19 16:13 Urine Ketones Negative mg/dL (NEGATIVE) 03/06/19 16:13 Urine Blood Small (NEGATIVE) 03/06/19 16:13 Urine Nitrate Negative (NEGATIVE) 03/06/19 16:13 Urine Bilirubin Negative (NEGATIVE) 03/06/19 16:13 Urine Urobilinogen 0.2-1.0 mg/dL (0.2-1.0) 03/06/19 16:13 Ur Leukocyte Esterase Mod [place]/uL (Negative) 03/06/19 16:13 Urine RBC (Auto) 22 /hpf (0-3) H 03/06/19 16:13 Urine Microscopic WBC 28 /hpf (0-5) H 03/06/19 16:13 Ur Squamous Epith Cells < 1 /hpf (0-5) 03/06/19 16:13 Urine Bacteria Occ (<OCC) H 03/06/19 16:13 - Hospital Course Hospital Course: 73 year old female with PMHx significant for Asthma, Hypothyroidism, COPD, Multiple Sclerosis (does self Urine Straight catheterization BID for Urinary Retention), CKD stage 3, breast CA s/p right breast lumpectomy and radiation treatment admitted for recurrent UTI, pt was having fever, nausea, vomiting and urine was foul smelling. Received ceftriaxone. Previous urine culture was faxed to us that showed E coli. Today pt feels better all her previous symptoms resolved. Pt hemodynamically stable, tolerating oral intake. Pt was discharged on PO keflex follow up with PMD in 1 week. Discharge Exam - Head Exam Head Exam: NORMAL INSPECTION - Eye Exam Eye Exam: Normal appearance - ENT Exam ENT Exam: Mucous Membranes Moist - Respiratory Exam Respiratory Exam: Clear to PA & Lateral. absent: Rales, Rhonchi, Wheezes - Cardiovascular Exam Cardiovascular Exam: RRR, +S1, +S2 - GI/Abdominal Exam GI & Abdominal Exam: Normal Bowel Sounds. absent: Tenderness - Neurological Exam Neurological exam: Alert, Oriented x3 Discharge Plan - Discharge Medications Prescriptions: Cephalexin [cephalexin] 500 mg PO BID 5 Days #10 cap - Follow Up Plan Condition: STABLE Disposition: HOME/ ROUTINE Instructions: Urinary Tract Infection, Adult (DC), How to Catheterize Yourself, Female Additional Instructions: follow up with primary MD 1 week Referrals: Braden Vanessa MD [Staff Provider] -
== END 2019-03-07 14:42 | disposition home or self-care (01) ==
LOC: H.ER 12:22 → H.ERHOLD 16:52 → INTOOBSV 16:52 → H.MEDSURG1 20:50
PROVIDERS: ADMIT Student in an Organized Health Care Education/Training Program; ATTEND Student in an Organized Health Care Education/Training Program
DX: N39.0 Urinary tract infection, site not specified (principal); N17.9 Acute kidney failure, unspecified; N18.4 Chronic kidney disease, stage 4 (severe); G35 Multiple sclerosis; B96.20 Unspecified Escherichia coli [E. coli] as the cause of diseases classified elsewhere; N31.8 Other neuromuscular dysfunction of bladder; Z16.29 Resistance to other single specified antibiotic; R33.8 Other retention of urine; E03.9 Hypothyroidism, unspecified; J44.9 Chronic obstructive pulmonary disease, unspecified; F41.9 Anxiety disorder, unspecified; Z96.651 Presence of right artificial knee joint; Z85.3 Personal history of malignant neoplasm of breast; Z92.3 Personal history of irradiation; Z85.41 Personal history of malignant neoplasm of cervix uteri; Z90.710 Acquired absence of both cervix and uterus; Z87.01 Personal history of pneumonia (recurrent); Z87.891 Personal history of nicotine dependence; Z99.3 Dependence on wheelchair; Z88.1 Allergy status to other antibiotic agents; Z91.013 Allergy to seafood
CPT/HCPCS: 36415; 71045; 80053; 81003; 82803; 85025; 87040; 87086; 94640; 99284; G0378; J0696